=== PATIENT | male | born 1940 | race Caucasian/White ===

== ENCOUNTER → 2016-12-29 11:17 | Outpatient (CLI) | payer MEDICARE, BC ==
[2015-05-15 14:44] VITALS: BMI 29.2
[~2016-12-29 11:17] MED LIST: ATROVENT 0.02%2.5 ML UPD; AVAPRO150 MG PO; AVAPRO300 MG PO; BAYER CHEWABLE81 MG PO; BUMEX 1 MG TAB1 MG PO; CARDURA4 MG PO; CARDURA8 MG PO; CHLORASEPTIC177 ML TOPICAL; COLACE100 MG PO; CORDARONE200 MG PO; COREG25 MG PO; COUMADIN5 MG PO; CRESTOR20 MG PO; FISH OIL 1,0001 CA1 PO; FLOMAX0.4 MG PO; GLIMEPIRIDE1 MG PO; GLIMEPIRIDE4 MG PO; GLUCOPHAGE1000 MG PO; HUMALOG 30100 UNITS/ SC; HYDROCODON-ACE1 EAC6 PO; IMDUR30 MG PO; IMDUR60 MG PO; LANTUS INSULIN10 ML SC; LASIX40 MG PO; LEVAQUIN 5500 MG/100 IV; LEVEMIR100 U/M1 SC; LIPITOR40 MG PO; MAG-OX 400 MG400 MG PO; MERREM 1 GM/NS 11 G1 IV; MULTAQ400 MG PO; NEURONTIN 300300 MG PO; NITROSTAT0.4 MG SL; NORVASC10 MG PO; NORVASC5 MG PO; NOVOLOG100 U/M1 SC; NYSTATIN ORAL SU5 ML PO; PLAVIX75 MG PO; PROSCAR5 MG PO; PROTONIX40 MG PO; PROZAC10 MG PO; SALINE FLUSH10 ML IV; SENOKOT-S TABLE1 TAB PO; XOPENEX 0.0.63 MG/3 UPD
== END | disposition home or self-care (01) ==
LOC: D.RT 12-20 14:30
DX: R06.00 Dyspnea, unspecified (principal)

== ENCOUNTER → 2017-01-09 17:24 | Outpatient (CLI) | payer MEDICARE, BC ==
[2015-05-15 14:44] VITALS: BMI 29.2
== END | disposition home or self-care (01) ==
LOC: D.LABREF 17:24
DX: R22.42 Localized swelling, mass and lump, left lower limb (principal)

== ENCOUNTER 2017-01-09 23:14 | Inpatient (IN) | payer MEDICARE, BC ==
[~2017-01-09] VITALS: Ht 193 cm; Wt 117.0 kg
[2017-01-10 00:21] LABS: HEMATOCRIT 34.5 % (42.0-54.0); HEMOGLOBIN 11.4 g/dL (13.5-17.5); LYMPHOCYTES 11.4 % (15-50); MCH 27.3 pg (26.0-34.0); MCV 82.7 fL (80.0-100.0); MEAN PLATELET VOLUME 9.5 fL (7.4-10.4); RBC 4.17 10x6/uL (4.20-6.10); RDW 14.2 % (11.5-14.5); WBC 9.8 10x3/uL (4.8-10.8)
[2017-01-10 00:23] LABS: PLATELET COUNT 224 10x3/uL (130-400)
[2017-01-10 00:40] LABS: ALBUMIN 3.2 g/dL (3.4-5.0); ANION GAP 15.8 mmol/L (8-16); BILIRUBIN - TOTAL 0.91 mg/dL (0.2-1.3); CALCIUM 9.2 mg/dL (8.5-10.1); CARBON DIOXIDE 22.4 mmol/L (21.0-32.0); POTASSIUM - SERUM 4.2 mmol/L (3.5-5.1); PROTEIN - SERUM 7.1 g/dL (6.4-8.2)
--- NOTE | 2017-01-10 02:50 | NUR ---
RECIEVED PT FROM ER VIA BED, TRANSFERED WITH EASE, ASSESSMENT COMPLETED, NO ACUTE DISTRESS NOTED, DENIES PAIN OR NEEDS AT THIS TIME, ORIENTED TO ROOM AND CALL LIGHT, SR'S UP, WILL MONITOR
[2017-01-10 07:04] VITALS: BP 128/62; BMI 28.5
--- NOTE | 2017-01-10 07:50 | NUR ---
PT AOX4 RESP EVEN AND NONLABORED PT DENIES NEEDS AT THIS TIME IV TO LEFT HAND PATENT AND INTACT SRX2 BED IN LOWEST SETTING CALL LIGHT WITHIN REACH WILL CONTINUE TO MONITOR
[2017-01-10 12:00] VITALS: BP 139/67
--- NOTE | 2017-01-10 12:20 | NUR ---
PT TRANSFERRED VIA BED TO 2113 AT THIS TIME
--- NOTE | 2017-01-10 12:33 | NUR ---
TRANSFERED FROM [place] BY W/C. TELEMETRY SR. IV PATENT. CALL LIGHT IN REACH. WILL CONT. PLAN OF CARE.
[2017-01-10 15:11] VITALS: Ht 193 cm; Wt 117.0 kg
[2017-01-10 16:00] VITALS: BP 126/56; BP 139/67
--- NOTE | 2017-01-10 16:59 | NUR ---
BLADDER SCAN 248CC. WILL CONT TO MONITOR.
--- NOTE | 2017-01-10 19:00 | NUR ---
INITIAL ROUNDS MADE. PT SITTING UP IN BED WITH FAMILY IN ROOM. DENIES NEEDS OR C/O AT THIS TIME. WILL CONT TO MONITOR.
[2017-01-10 20:39] VITALS: BP 137/75
--- NOTE | 2017-01-10 20:58 | NUR ---
FSBS 379, COVERED WITH SS INSULIN AND LEVEMIR ORDERED.
[2017-01-11 00:47] VITALS: BP 119/53; BP 124/79
[2017-01-11 04:56] VITALS: BP 121/63
[2017-01-11 05:46] LABS: BASOPHILS 0 % (0-2); EOSINOPHILS 0 % (0-7); HEMOGLOBIN 10.4 g/dL (13.5-17.5); IMMATURE GRANULOCYTES 0.4 % (0-5); LYMPHOCYTES 5.4 % (15-50); MCHC 33.5 g/dL (31.0-37.0); MCV 83.3 fL (80.0-100.0); MEAN PLATELET VOLUME 10.2 fL (7.4-10.4); MONOCYTES 3.6 % (2-11); NEUTROPHILS 90.6 % (40-80); PLATELET COUNT 208 10x3/uL (130-400); RBC 3.72 10x6/uL (4.20-6.10)
[2017-01-11 06:06] LABS: WBC 13.6 10x3/uL (4.8-10.8)
[2017-01-11 06:12] LABS: ALBUMIN 2.8 g/dL (3.4-5.0); ANION GAP 12.4 mmol/L (8-16); BILIRUBIN - TOTAL 0.6 mg/dL (0.2-1.3); CALCIUM 8.7 mg/dL (8.5-10.1); CARBON DIOXIDE 21.4 mmol/L (21.0-32.0); CREATININE - SERUM 3.5 mg/dL (0.6-1.3); MAGNESIUM - SERUM 2.5 mg/dL (1.8-2.4); POTASSIUM - SERUM 4.8 mmol/L (3.5-5.1); PROTEIN - SERUM 6.5 g/dL (6.4-8.2)
--- NOTE | 2017-01-11 06:25 | NUR ---
LYING IN BED RESTING WELL WITH EYES CLOSED, CALL LIGHT IN REACH. WILL CONT TO MONITOR.
--- NOTE | 2017-01-11 07:40 | NUR ---
TELEMETRY PACED. RESP UL ON 02 4L NC. IV PATENT. CAMPOS CATH INSERTED WITH 16 FR CAHT AND 10CC BULB FOR C/O URINARY RETENTION. 1200CC OP NOTED. WILL CONT. PLAN OF CARE.
[2017-01-11 08:57] VITALS: BP 142/66
[2017-01-11 12:00] VITALS: BP 133/74
[2017-01-11 15:47] LABS: CREATININE - URINE 118.9 mg/dL (30-125); PROTEIN - URINE 52.8 mg/dL (0.0-11.9)
[2017-01-11 15:51] LABS: APPEARANCE HAZY (CLEAR); BILIRUBIN NEGATIVE (NEGATIVE); COLOR DK YELLOW (YELLOW); GLUCOSE 50 mg/dL (NEGATIVE); KETONE NEGATIVE (NEGATIVE); LEUKOCYTE ESTERASE NEGATIVE (NEGATIVE); NITRITE NEGATIVE (NEGATIVE); PROTEIN TRACE mg/dL (NEGATIVE); UROBILINOGEN NORMAL (NORMAL)
[2017-01-11 15:54] LABS: BACTERIA FEW /hpf (NONE SEEN); RED CELLS - URINE >50 /hpf (0-5); WHITE CELLS - URINE 0-5 /hpf (0-5)
--- NOTE | 2017-01-11 15:55 | NUR ---
US DONE AT . URINE SPECIMEN COLLECTED TAKEN TO LA. WILL MONITOR.
[2017-01-11 16:00] VITALS: BP 108/78
--- NOTE | 2017-01-11 19:31 | NUR ---
RESUMED CARE OF PT, LYING IN BED RESPIRATIONS EVEN AND UNLABORED ON 4LPM VIA NC. 71 PACED ON TELEMETRY. LEFT HAND INFUSING DOBUTREX @ 5MCG (15.9ML/HR) AND NS @ KVO. CAMPOS TO GRAVITY. NO NEEDS AT THIS TIME. CALL LIGHT IN REACH, WILL CONTINUE TO MONTIOR. SEE NURSE ASSESSMENT.
[2017-01-11 20:00] VITALS: BP 118/56
[2017-01-12] VITALS: BP 119/61
--- NOTE | 2017-01-12 02:00 | NUR ---
UNABLE TO CATCH BREATH, VERY ANXIOUS. WAS ABLE TO TALK DOWN FOR A BRIEF PERIOD. O2 SATURATION 87% ON 4LPM, INCREASED O2 TO 5LPM VIA NC. UPDRAFT GIVEN FOR SHORTNESS OF BREATH, 90% ON 6LPM VIA NC. WILL APPLY OXYIMIZER FOR NOW. WILL CONTINUE TO MONITOR.
--- NOTE | 2017-01-12 02:24 | NUR ---
DR. GALLAGHER PAGED FOR ANXIETY, SEE NEW ORDERS
[2017-01-12 04:00] VITALS: BP 136/69
[2017-01-12 05:08] LABS: BASOPHILS 0 % (0-2); EOSINOPHILS 0.8 % (0-7); HEMATOCRIT 31.1 % (42.0-54.0); HEMOGLOBIN 10.7 g/dL (13.5-17.5); IMMATURE GRANULOCYTES 0.4 % (0-5); LYMPHOCYTES 7.7 % (15-50); MCH 28.5 pg (26.0-34.0); MCHC 34.4 g/dL (31.0-37.0); MCV 82.7 fL (80.0-100.0); MEAN PLATELET VOLUME 10.1 fL (7.4-10.4); MONOCYTES 8.7 % (2-11); NEUTROPHILS 82.4 % (40-80); PLATELET COUNT 230 10x3/uL (130-400); RBC 3.76 10x6/uL (4.20-6.10); RDW 14.1 % (11.5-14.5); WBC 12.8 10x3/uL (4.8-10.8)
[2017-01-12 05:48] LABS: ALBUMIN 2.7 g/dL (3.4-5.0); ANION GAP 15.9 mmol/L (8-16); BILIRUBIN - TOTAL 0.7 mg/dL (0.2-1.3); CALCIUM 8.4 mg/dL (8.5-10.1); CARBON DIOXIDE 21.2 mmol/L (21.0-32.0); CREATININE - SERUM 3.5 mg/dL (0.6-1.3); POTASSIUM - SERUM 4.1 mmol/L (3.5-5.1); PROTEIN - SERUM 6.3 g/dL (6.4-8.2)
[2017-01-12 06:31] LABS: ERYTHROCYTE SEDIMENTATION RATE 46 mm/hr (0-20)
--- NOTE | 2017-01-12 06:36 | NUR ---
NO CHANGES FROM PREVIOUS ASSESSMENT, CALL LIGHT IN REACH.
--- NOTE | 2017-01-12 07:21 | NUR ---
ASSESSMENT COMPLETED.TELEMERTY SHOWS PACED RHYTHM AT 69. LEFT HAND IV WITH DOBUTREX 15.9 AND NS AT KVO. CAMPOS CATH PATENT TO BEDSIDE GRAVITY BAG. DENIES ANY NEEDS. CALL LIGHT IN REACH AND SR UP TIMES 2. 12 L/M PER OXIMIZER
[2017-01-12 07:53] VITALS: BP 128/71
--- NOTE | 2017-01-12 11:37 | NUR ---
PATIENT REPORTS THAT HE IS NOT "FEELING THE BEST RIGHT NOW". ON 12L PER OXIMIZER, PACED ON HEART MONITOR AT 73. FEMALE MEMBER AT BEDSIDE. DENIES ANY FURTHER NEEDS.
[2017-01-12 11:51] VITALS: BP 141/75
[2017-01-12 12:56] LABS: APPEARANCE SLT CLOUDY (CLEAR); COLOR YELLOW (YELLOW); LEUKOCYTE ESTERASE 1+ (NEGATIVE); NITRITE NEGATIVE (NEGATIVE); SPECIFIC GRAVITY 1.015 (1.005-1.020)
[2017-01-12 12:57] LABS: BILIRUBIN NEGATIVE (NEGATIVE); GLUCOSE NEGATIVE (NEGATIVE); KETONE NEGATIVE (NEGATIVE); PROTEIN TRACE mg/dL (NEGATIVE); UROBILINOGEN NORMAL (NORMAL)
[2017-01-12 13:00] LABS: EPITHELIAL CELLS 0-5 /hpf (0-5); RED CELLS - URINE >50 /hpf (0-5); WHITE CELLS - URINE 0-5 /hpf (0-5)
[2017-01-12 13:01] LABS: AMORPHOUS SEDIMENT <1+ /lpf (NONE SEEN); BACTERIA MANY /hpf (NONE SEEN)
--- NOTE | 2017-01-12 14:33 | NUR ---
22 G TO RIGHT THUMB X 1 STICK.
--- NOTE | 2017-01-12 15:21 | NUR ---
LYING QUIETLY WITH HOB UP.C/O SHORTNESS OF BREATH. BLOOD GASSES DRAWN AND FOUND TO BE NORMAL ATIVAN GIVEN PER PT REQUEST. TELEMERTY SHOWS PACED RHYTHM. WILL MONITOR
[2017-01-12 15:37] VITALS: BP 146/73
--- NOTE | 2017-01-12 17:12 | NUR ---
Patient Name: ANASTASIIA FONTENOT Admission Status: ER Accout number: [id number] Admission Date: 01-10-2017 : 1940 Admission Diagnosis:ACUTE ON CHRONIC SYSTOLIC (CONGESTIVE) HEART FAILURE Attending: MENA Current LOS: 2 Anticipated DC Date: Planned Disposition: Home Primary Insurance: MEDICARE A & B Discharge Planning Comments: CM MET WITH PATIENT TO DISCUSS DISCHARGE PLANNING/NEEDS. HIS EX WHITNEY WAS AT BEDSIDE HOLDING HIS HAND. HE STATED THAT HE LIVES AT HOME WITH HIS EDA ([phone]), AND THIS IS WHERE HE PLANS ON RETURNING. HE STATED THAT HE RECEIVES HIS OXYGEN THROUGH [facility] BUT DOES NOT HAVE A NEBULIZER, BUT THINKS HE NEEDS ONE. HE ALSO HAS A GLUCOMETER FOR TESTING HIS BLOOD SUGARS, BUT WHEN ASKED HOW OFTEN HE TEST, WAS GREETED WITH A BLANK STARE. HE ALSO HAS A ROLLING WALKER AT HOME THAT HE SAID HE DOESN'T NEED TO USE ANYMORE. HE SAID THAT HIS EXWIFE WILL BE HIS TRANSPORTATION HOME AT DISCHARGE. DENIES THE NEED FOR HOME HEALTH AT THIS TIME. VOICED NO OTHER NEEDS EXCEPT FOR THE ABOVE LISTED. CM WILL CONTINUE TO FOLLOW AND ASSIST NEEDED. Supervisor Dried Yeast: Candi Oliva Is the patient Alert and Oriented? Yes * How many steps to enter\exit or inside your home? 0 * PCP DR LEE * Pharmacy [facility] [address] * Preadmission Environment Home with Family * ADLs Independent * Equipment Glucometer Oxygen Rolling Walker * Other Equipment [employer] * List name and contact numbers for known caregivers / representatives who currently or will assist patient after discharge: DORA FONTENOT, SON, EDA FONTENOT, , WHITNEY FONTENOT, EXWIFE, * Community resources currently utilized None * Additional services required to return to the preadmission environment? No * Can the patient safely return to the preadmission environment? Yes * Has this patient been hospitalized within the prior 30 days at any hospital? No
[2017-01-12 19:00] VITALS: BP 137/60
--- NOTE | 2017-01-12 19:36 | NUR ---
RESUMED CARE OF PT, LYING IN BED RESPIRATIONS EVEN AND UNLABORED ON 12 LPM VIA OXYMIZER. FAMILY AT BEDSIDE, PLAN OF CARE DISCUSSED. 70 PACED ON TELEMETRY. CAMPOS TO GRAVITY. RIGHT THUMB INFUSING DOBUTAMINE @ 15.9ML/HR, LASIX @ 10, AND NS @ 10. NO NEEDS VOICED AT THIS TIME, CALL LIGHT IN REACH. WILL CONTINUE TO MONITOR. SEE NURSE ASSESSMENT.
--- NOTE | 2017-01-12 23:52 | NUR ---
IV REMOVED BY PT FROM RIGHT HAND TIP INTACT. 22 GAUGE TO LEFT FOREARM X 2 STICKS. FLUIDS RESTARTED. CALL LIGHT IN REACH. WILL CONTINUE TO MONITOR.
--- NOTE | 2017-01-13 01:01 | NUR ---
CALL LIGHT IN REACH, WILL CONTINUE WITH PLAN OF CARE.
[2017-01-13 04:00] VITALS: BP 137/68
[2017-01-13 05:54] LABS: BASOPHILS 0 % (0-2); EOSINOPHILS 0 % (0-7); HEMATOCRIT 31.5 % (42.0-54.0); HEMOGLOBIN 10.8 g/dL (13.5-17.5); IMMATURE GRANULOCYTES 0.3 % (0-5); LYMPHOCYTES 4.9 % (15-50); MCH 27.9 pg (26.0-34.0); MCHC 34.3 g/dL (31.0-37.0); MCV 81.4 fL (80.0-100.0); MEAN PLATELET VOLUME 10.7 fL (7.4-10.4); MONOCYTES 1.8 % (2-11); PLATELET COUNT 244 10x3/uL (130-400); RBC 3.87 10x6/uL (4.20-6.10); RDW 13.8 % (11.5-14.5); WBC 10.2 10x3/uL (4.8-10.8)
[2017-01-13 06:44] LABS: ALBUMIN 2.8 g/dL (3.4-5.0); ANION GAP 22.2 mmol/L (8-16); BILIRUBIN - TOTAL 0.7 mg/dL (0.2-1.3); CALCIUM 8.4 mg/dL (8.5-10.1); CARBON DIOXIDE 16.3 mmol/L (21.0-32.0); CREATININE - SERUM 3.4 mg/dL (0.6-1.3); MAGNESIUM - SERUM 2.4 mg/dL (1.8-2.4); POTASSIUM - SERUM 4.5 mmol/L (3.5-5.1); PROTEIN - SERUM 6.8 g/dL (6.4-8.2)
--- NOTE | 2017-01-13 07:12 | NUR ---
NO CHANGES FROM PREVIOUS ASSESSMENT, CALL LIGHT IN REACH.
--- NOTE | 2017-01-13 07:25 | NUR ---
ASSESSMENT COMPLETED.TELEMERTY SHOWS PACED RHYTHM AT 71. 02 AT 15 L/M PER OXIMIZER. LEFT FA IV WITH DOBUTAMINE AT 15.9, LASIX AT 10 AND NS AT 10. CAMPOS CATH PATENT TO GRAVITY BAG. SR UP WITH CALL LIGHT IN REACH. FAMILY AT BEDSIDE. WILL MONITOR
[2017-01-13 07:56] VITALS: BP 131/59
--- NOTE | 2017-01-13 10:24 | NUR ---
ON 15L OXIMIZER, WANTING TO KNOW WHEN HIS BIPAP WILL BE HERE. LEFT FA WITH DOBUTREX INFUSING AT 15.9CC, NS INFUSING AT 10CC/HR, AND LASIX DRIP INFUSING AT 10CC/HR. CAMPOS CATH PATENT WILL YELLOW URINE. PACED ON HEART MONITOR.
--- NOTE | 2017-01-13 10:34 | NUR ---
FAMILY AT BEDSIDE. PT DENIES ANY NEEDS. CALL IGHT IN REACH WITH SR UP. WILL MONITOR
[2017-01-13 11:55] VITALS: BP 155/79
--- NOTE | 2017-01-13 12:19 | NUR ---
NA BICARB 100MG IVP GIVEN BY DEACON TEJADA RN PER ORDERS.
--- NOTE | 2017-01-13 13:01 | NUR ---
Nutrition Follow Up: Pt is eating 73% meal avg on a diabetic 2g Na diet. No BM since admit. Labs reviewed - BUN, Cr, Glucose continue elevated; Phos elevated. Meds noted including Lasix, Solu-Medrol. Pt with good po intake at this time. Rec continue current diet. RD will continue to monitor pt progress.
--- NOTE | 2017-01-13 14:45 | NUR ---
BI PAP ON PER RESPATORY. DENIES ANY NEEDS. SR UP WITH CALL LIGHT IN REACH. WILL MONITOR
--- NOTE | 2017-01-13 18:01 | NUR ---
LYING QUIETLY WITH EYES CLOSED. RESP REG AND NON LABORED. TELEMERTY SHOWS PACED RHYTHM. WILL MONITOR
[2017-01-13 19:00] VITALS: BP 132/72
[2017-01-14] VITALS: BP 144/69
[2017-01-14 04:00] VITALS: BP 162/69
[2017-01-14 05:05] LABS: BASOPHILS 0 % (0-2); EOSINOPHILS 0 % (0-7); HEMATOCRIT 33.2 % (42.0-54.0); HEMOGLOBIN 11.1 g/dL (13.5-17.5); IMMATURE GRANULOCYTES 0.4 % (0-5); LYMPHOCYTES 4.5 % (15-50); MCH 27.4 pg (26.0-34.0); MCHC 33.4 g/dL (31.0-37.0); MEAN PLATELET VOLUME 10.3 fL (7.4-10.4); MONOCYTES 4.2 % (2-11); NEUTROPHILS 90.9 % (40-80); PLATELET COUNT 271 10x3/uL (130-400); RBC 4.05 10x6/uL (4.20-6.10); RDW 13.8 % (11.5-14.5)
[2017-01-14 05:17] LABS: WBC 13.1 10x3/uL (4.8-10.8)
[2017-01-14 05:33] LABS: ALBUMIN 2.9 g/dL (3.4-5.0); ANION GAP 17.2 mmol/L (8-16); BILIRUBIN - TOTAL 0.6 mg/dL (0.2-1.3); CALCIUM 8.7 mg/dL (8.5-10.1); CREATININE - SERUM 3.3 mg/dL (0.6-1.3); POTASSIUM - SERUM 4.3 mmol/L (3.5-5.1); PROTEIN - SERUM 6.9 g/dL (6.4-8.2)
[2017-01-14 05:39] LABS: CARBON DIOXIDE 22.1 mmol/L (21.0-32.0)
[2017-01-14 08:00] VITALS: BP 131/66
--- NOTE | 2017-01-14 11:39 | NUR ---
TELEMETRY PACED. RESP UL ON O2 15L OXIMIZER. CAMPOS INTACT. IV RESTARTED TO LEFT FA WITH 22 GAUGE CATH X 1 STICK. LINE IS PATENT. WILL CONT. PLAN OF CARE.
[2017-01-14 16:24] VITALS: BP 149/80
[2017-01-14 19:00] VITALS: BP 152/69
--- NOTE | 2017-01-14 19:45 | NUR ---
PT RESTING IN BED. HAS JUST BEEN UP TO BATHROOM AND HAD SMALL/HARD BM. RESPS SHALLOW AND SHORT OF BREATH FROM BEING UP. WEARING O2 @ 15L/OXIMISER. CAMPOS PATENT TO BEDSIDE DRAIN BAG. IV TO RFA WITH DOBUTREX AT 15.9ML/HR AND LASIX @ 10ML/HR AND NS @ 10 ALL PIGTAILED TO SAME IV SITE. AT BEDSIDE. SEE COMPLETE ASSESSMENT. CPOC.
--- NOTE | 2017-01-14 21:51 | NUR ---
HS MEDS GIVEN. FSBS 276. LEVEMIR AND HUMALOG SLIDING SCALE BOTH ADMINISTERED. CPOC. STAYING AT BEDSIDE.
--- NOTE | 2017-01-15 01:30 | NUR ---
NEW ORDERS NOTED FROM DR DOMINIQUE. HORSE IDENTIFIER NEEDED TO OVERRIDE MEDS. AWAKENED PT TO DISCUSS HIS LISTED ALLERGY OF PENICILLIN AND EXPLAINED THAT DR DOMINIQUE HAD ORDERED HIM A NEW ANTIBIOTIC THAT CONFLICTED WITH LISTED ALLERGY. PT STATES IT MAKES HIS SKIN PEEL ON HIS HANDS. ASKED PT IF HE WANTED TO HOLD ON THE MAXIPIME ABT UNTIL HE COULD TALK TO DR. DOMINIQUE. PT STATES THAT HE WILL TAKE THE MEDICINE SINCE THE REACTION WAS SOMETHING THAT HAPPENED A LONG TIME AGO. STARTED IV MAXIPIME AT THIS TIME AND INSTRUCTED PT TO CALL NURSE IF HE WANTS MED STOPPED AT ANY POINT. PT HAS AT BEDSIDE AND SHE SAID SHE WILL LET NURSE KNOW IF THERE IS AN ISSUE. REVIEWED ALL THE NEW ORDERS PER DR DOMINIQUE WITH PT AND SPOUSE.
--- NOTE | 2017-01-15 03:11 | NUR ---
IV VIBRAMYCIN NOW UP AND INFUSING. PT ASLEEP WITH BIPAP IN PLACE. AT BEDSIDE.
[2017-01-15 04:00] VITALS: BP 142/67
[2017-01-15 04:54] LABS: BASOPHILS 0 % (0-2); EOSINOPHILS 0 % (0-7); HEMATOCRIT 35.3 % (42.0-54.0); HEMOGLOBIN 11.7 g/dL (13.5-17.5); IMMATURE GRANULOCYTES 0.4 % (0-5); LYMPHOCYTES 4.3 % (15-50); MCH 27.4 pg (26.0-34.0); MCHC 33.1 g/dL (31.0-37.0); MCV 82.7 fL (80.0-100.0); MEAN PLATELET VOLUME 10.5 fL (7.4-10.4); MONOCYTES 3.1 % (2-11); NEUTROPHILS 92.2 % (40-80); PLATELET COUNT 310 10x3/uL (130-400); RBC 4.27 10x6/uL (4.20-6.10); RDW 13.9 % (11.5-14.5)
[2017-01-15 04:58] LABS: WBC 9.5 10x3/uL (4.8-10.8)
[2017-01-15 05:08] LABS: ALBUMIN 2.9 g/dL (3.4-5.0); ANION GAP 15.5 mmol/L (8-16); BILIRUBIN - TOTAL 0.6 mg/dL (0.2-1.3); CALCIUM 8.8 mg/dL (8.5-10.1); CARBON DIOXIDE 22.7 mmol/L (21.0-32.0); CREATININE - SERUM 3.2 mg/dL (0.6-1.3); MAGNESIUM - SERUM 2.7 mg/dL (1.8-2.4); PHOSPHOROUS 6.8 mg/dL (2.5-4.9); POTASSIUM - SERUM 4.2 mmol/L (3.5-5.1)
[2017-01-15 08:00] VITALS: BP 145/73
--- NOTE | 2017-01-15 10:43 | NUR ---
RESP UL ON 15L OXIMIZER. TELEMETRY PACED. IV PATENT. CAMPOS INTACT. CALL LIGHT IN REACH. WILL CONT. PLAN OF CARE.
[2017-01-15 12:50] VITALS: BP 121/55
[2017-01-15 20:00] VITALS: BP 139/74
--- NOTE | 2017-01-15 20:11 | NUR ---
PT AND IN ROOM WITH PT C/O VOIDING AROUND HIS CATHETER. PHONE CALL TO DR DE LA O AND NEW ORDERS RECIEVED.
--- NOTE | 2017-01-15 20:58 | NUR ---
BEDTIME MEDS GIVEN + NEW ORDERED DITROPAN WITH PATIENT TEACHING ON ITS PURPOSE. CAMPOS IS PATENT WITH URINE FLOWING IN TUBE. WILL MONITOR.
--- NOTE | 2017-01-15 21:47 | NUR ---
CALLED BACK TO ROOM BY PATIENT. FEELING LIKE HE NEEDS TO VOID. FLUSHED CAMPOS AD THERE WAS SOME INITIAL RESISTANCE THEN URINE WAS BACK TO FREE FLOWING IN CAMPOS. FSBS 195. SCHEDULED LEVEMIR AND SLIDING SCALE HUMALOG GIVEN. EXPLAINED TO PT THAT DITROPAN HAS NOT HAD TIME TO WORK AND HOPEFULLY HE WILL BEGIN TO FEEL SOME RELIEF SOON. WILL BE AT BEDSIDE. IV LASIX DRIP @ 10ML/HR INFUSING TO RIGHT WRIST AREA. CPOC.
--- NOTE | 2017-01-16 01:44 | NUR ---
PT CONTINUES TO HAVE LEAKAGE AROUND CAMPOS SITE AND REQUIRING CARE AND LINEN CHANGES. WHEN SPEAKING WITH DR DE LA O AT BEGINNING OF SHIFT, HE SPECIFIED TO NOT REMOVE AND REPLACE CAMPOS WITH A LARGER SIZE. PT UNDERSTANDS AND WILL CONTINUE TO TRY THE DITROPAN AND SPECIAL CARE HAS BEEN MADE TO PROTECT HIS BED/SHEETS FROM WETNESS UNTIL SEEN BY UROLOGIST IN AM. IV ABT UP AND INFUSING. IV SOLUMEDROL GIVEN. PT NOW ON BIPAP/CLEAN AND DRY AND PLANNING TO SLEEP. AT BEDSIDE.
[2017-01-16 04:00] VITALS: BP 141/75
[2017-01-16 04:38] LABS: BASOPHILS 0 % (0-2); EOSINOPHILS 0 % (0-7); HEMATOCRIT 33.8 % (42.0-54.0); HEMOGLOBIN 11.3 g/dL (13.5-17.5); IMMATURE GRANULOCYTES 0.6 % (0-5); LYMPHOCYTES 4.7 % (15-50); MCH 27.8 pg (26.0-34.0); MCHC 33.4 g/dL (31.0-37.0); MEAN PLATELET VOLUME 10.3 fL (7.4-10.4); MONOCYTES 3.2 % (2-11); NEUTROPHILS 91.5 % (40-80); PLATELET COUNT 335 10x3/uL (130-400); RBC 4.07 10x6/uL (4.20-6.10); RDW 13.9 % (11.5-14.5)
[2017-01-16 04:47] LABS: WBC 12.3 10x3/uL (4.8-10.8)
[2017-01-16 05:00] LABS: ALBUMIN 2.8 g/dL (3.4-5.0); ANION GAP 17.9 mmol/L (8-16); BILIRUBIN - TOTAL 0.7 mg/dL (0.2-1.3); CARBON DIOXIDE 21.3 mmol/L (21.0-32.0); CREATININE - SERUM 3.1 mg/dL (0.6-1.3); POTASSIUM - SERUM 4.2 mmol/L (3.5-5.1); PROTEIN - SERUM 6.9 g/dL (6.4-8.2)
--- NOTE | 2017-01-16 07:30 | NUR ---
RECEIVED PT IN STABLE CONDITION AAOX4 RESP UNLABORED O2 ON PER OXIMIZER @ 15 L/M DENIES ANY NEED OR DISCOMFORT AT THIS TIME NAD NOTED
[2017-01-16 08:57] VITALS: BP 144/66
--- NOTE | 2017-01-16 11:44 | NUR ---
FSBS 258 HUMALOG 10 UNITS GIVEN SQ RT ARM
[2017-01-16 11:58] VITALS: BP 139/63
[2017-01-16 16:13] VITALS: BP 167/82
--- NOTE | 2017-01-16 16:45 | NUR ---
FSBS 284 HUMALOG 10 UNITS GIVEN SQ LT ARM
[2017-01-16 21:25] VITALS: BP 138/73
--- NOTE | 2017-01-16 21:56 | NUR ---
HS MEDS GIVEN. ALSO PROVIDED DITROPA AND ATIVAN TO HELP WITH BLADDER SPASMS AND TO RELAX PATIENT. IVF LASIX DRIP AT 10MLHR INFUSING TO RIGHT WRIST. NS @ KVO FOR ABT. AT BEDSIDE. SEE ASSESSMENTN. CPOC.
[2017-01-17 01:00] VITALS: BP 155/76
[2017-01-17 04:00] VITALS: BP 150/68
[2017-01-17 04:49] LABS: BASOPHILS 0 % (0-2); EOSINOPHILS 0 % (0-7); HEMATOCRIT 33.4 % (42.0-54.0); HEMOGLOBIN 10.9 g/dL (13.5-17.5); IMMATURE GRANULOCYTES 0.7 % (0-5); LYMPHOCYTES 4.5 % (15-50); MCH 27.6 pg (26.0-34.0); MCHC 32.6 g/dL (31.0-37.0); MCV 84.6 fL (80.0-100.0); MEAN PLATELET VOLUME 10.3 fL (7.4-10.4); MONOCYTES 3.5 % (2-11); NEUTROPHILS 91.3 % (40-80); PLATELET COUNT 328 10x3/uL (130-400); RBC 3.95 10x6/uL (4.20-6.10); WBC 11.6 10x3/uL (4.8-10.8)
[2017-01-17 05:09] LABS: ALBUMIN 2.7 g/dL (3.4-5.0); ANION GAP 18.2 mmol/L (8-16); BILIRUBIN - TOTAL 0.6 mg/dL (0.2-1.3); CALCIUM 8.6 mg/dL (8.5-10.1); CARBON DIOXIDE 20.1 mmol/L (21.0-32.0); CREATININE - SERUM 3.1 mg/dL (0.6-1.3); POTASSIUM - SERUM 4.3 mmol/L (3.5-5.1); PROTEIN - SERUM 6.1 g/dL (6.4-8.2)
--- NOTE | 2017-01-17 07:30 | NUR ---
RECEIVED PT IN BED WITH EYES CLOSED RESP UNLABORED OXIMIZER INTACT AND PATENT AT 15 L/M NC NAD NOTED
[2017-01-17 08:00] VITALS: BP 157/77
[2017-01-17 09:15] LABS: SPE - ALBUMIN 2.8 g/dL (2.9-4.4); SPE - ALPHA-1 GLOBULIN 0.3 g/dL (0.0-0.4); SPE - ALPHA-2 GLOBULIN 0.8 g/dL (0.4-1.0); SPE - BETA GLOBULIN 0.8 g/dL (0.7-1.3); SPE - GAMMA GLOBULIN 0.9 g/dL (0.4-1.8); SPE - M-SPIKE Not Observed g/dL (Not Observed); SPE - TOTAL PROTEIN 5.7 g/dL (6.0-8.5)
--- NOTE | 2017-01-17 10:23 | NUR ---
PT PLACED IN TEMPORARY DROPPLET PRECAUTION FOR STAFF AUREUS IN SPUTUM
[2017-01-17 12:00] VITALS: BP 132/61
--- NOTE | 2017-01-17 12:06 | NUR ---
FSBS 200 HUMALOG 4 UNITS GIVEN SQ LT ARM
--- NOTE | 2017-01-17 19:20 | NUR ---
ALERT/AWAKE WATCHING TV, TALKING TO HER . DENIES PAIN OR ANY NEEDS. IV IN L FA WITH NS INFUSING AT 100ML/HR. SCD'S ARE ON. HER VOICED NO QUESTIONS OR CONCERNS. ORIENTED TO CALL LIGHT FOR ANY NEEDS.
--- NOTE | 2017-01-17 19:59 | NUR ---
ALERT/AWAKE DENIES PAIN OR ANY NEEDS. IN DROPLET ISOLATION FOR STAPH/SPUTUM. HAS 02 AT 8L PER OXIMIZER. NO RESP DISTRESS NOTED. RR 18 EVEN U/L. TELEMETRY LEADS IN PLACE. CAMPOS INTACT DRAINING SIA URINE. HAS CALL LIGHT AND BEDSIDE TABLE WITH PERSONAL ITEMS IN REACH.
[2017-01-17 20:47] VITALS: BP 149/70
[2017-01-18 00:39] VITALS: BP 147/71
--- NOTE | 2017-01-18 02:25 | NUR ---
REC UPDRAFT TX. DENIES ANY NEEEDS.
[2017-01-18 05:12] LABS: BASOPHILS 0 % (0-2); EOSINOPHILS 0 % (0-7); HEMATOCRIT 32.2 % (42.0-54.0); HEMOGLOBIN 10.6 g/dL (13.5-17.5); IMMATURE GRANULOCYTES 0.9 % (0-5); LYMPHOCYTES 4.5 % (15-50); MCH 27.8 pg (26.0-34.0); MCHC 32.9 g/dL (31.0-37.0); MCV 84.5 fL (80.0-100.0); MEAN PLATELET VOLUME 10.2 fL (7.4-10.4); MONOCYTES 2.7 % (2-11); NEUTROPHILS 91.9 % (40-80); PLATELET COUNT 324 10x3/uL (130-400); RBC 3.81 10x6/uL (4.20-6.10); RDW 14.1 % (11.5-14.5); WBC 11.1 10x3/uL (4.8-10.8)
[2017-01-18 05:34] LABS: ANION GAP 16.7 mmol/L (8-16); CARBON DIOXIDE 22.5 mmol/L (21.0-32.0); CREATININE - SERUM 2.9 mg/dL (0.6-1.3); POTASSIUM - SERUM 4.2 mmol/L (3.5-5.1)
[2017-01-18 05:49] VITALS: BP 139/67
[2017-01-18 05:54] LABS: CALCIUM 9.1 mg/dL (8.5-10.1)
[2017-01-18 08:00] VITALS: BP 134/69
--- NOTE | 2017-01-18 08:22 | NUR ---
AM ROUNDS - PT IN BED AWAKE. IV TO RIGHT FA, NS AT 10CC/HR AND LASIX AT 5CC/HR. MONITOR SHOWING PACE, HR 69. CAMPOS DRAINING SIA COLOR. O2 AT 10L VIA OXIMIZER. BED AT LOWEST POSITION, CALL GARCIA IN USE/REACH, SIDE RAILS UP X2. WILL CONTINUE TO MONITOR
[2017-01-18 10:20] LABS: ANA REFLEX - DIRECT Negative (Negative)
--- NOTE | 2017-01-18 12:36 | NUR ---
Nutrition follow-up: Diet: ADA low sodium mechanical soft with thin liquids; 800 ml FR Labs reviewed Glucose > 250 mg/dl average Wt: 234# +BM PO intake good at this time. RDN following.
--- NOTE | 2017-01-18 12:45 | NUR ---
PT C/O FULLNESS IN BLADDER. CAMPOS HAD BLOOD IN TUBE AND DID NOT APPEAR TO BE DRAINING. HUE ERICKSON, GENTLY IRRIGATED THE BLADDER WITH NS AND HAD RETURN CLOTS. READ SEAL ON CAMPOS BROKEN. CAMPOS IS DRAINING AT THIS TIME. VERY DARK DRAINAGE. INSTRUCTED PT TO NOTIFY US IF HE STARTS TO FEEL ANY PRESSURE IN BLADDER. WILL CONTINUE TO MONITOR.
[2017-01-18 12:46] VITALS: BP 151/73
--- NOTE | 2017-01-18 13:54 | EC ---
PATIENT:ANASTASIIA FONTENOT DATE OF SERVICE: 01/10/17 SEX: M MEDICAL RECORD: [id number] DATE OF : [birth year] LOCATION:D. D.211 AGE OF PATIENT: 76 ADMISSION DATE: 01/10/17 REFERRING PHYSICIAN: INTERPRETING PHYSICIAN: STEPHANIA TERRELL M.D. ECHOCARDIOGRAM REPORT ECHO CHARGES 4 ECHO COMPLETE CLINICAL DIAGNOSIS: CHF ECHOCARDIOGRAPHIC MEASUREMENTS (adult normal given) AC root (d.<3.7cm) 4.0 LV Septum d (<1.2 cm> 1.7 Valve Excursion 2.1 LV Septum (systole) 1.9 Left Atria (s.<4.0cm> 5.1 LVPW d(<1.2cm) 1.4 RV (d.<2.3cm) 6.1 LVPW (sytole) 2.1 LV diastole(<5.6CM) 7.1 MV E-F(>70mm/sec) LV systole 5.6 LVOT Diameter 2.0 MV exc.(>10mm) 1.9 Est.ejection fraction (50-75%) Pericardial Effusion N DOPPLER: LVIT A 104 E 125 LA RVSP 45 LVOT 113 AOP1/2T 593 Asc. Ao 204 RVOT 106 RA PA 143 AV Gradient Peak 16.70 AV Mean 9.80 AV Area 1.3 MV Gradient Peak 7.93 MV Mean 2.87 MV Area COMMENTS: Joy Loading Machine Operator: Baltazar GARLAND Orientation & Mobility Specialist:Ronnie Ryan TAPE# PACS DATE OF SERVICE: 01/10/2017 REFERRING PHYSICIAN: Marco Ernandez DO. INDICATION: CHF. DESCRIPTION: Left ventricle demonstrates left ventricular hypertrophy. There is moderate LV dysfunction noted. His ejection fraction is in the order of 35% to 40%. Mitral valve is structurally normal. There is moderate regurgitation noted. Left atrium is moderately dilated. The aortic valve leaflets are ECHOCARDIOGRAM REPORT [id number] ANASTASIIA FONTENOT slightly thickened. There is mild insufficiency noted. Right ventricle is moderately to severely dilated. Tricuspid valve is normal. There is moderate regurgitation seen. Right ventricular systolic pressure is elevated at 45 mmHg. There is no pericardial effusion seen. IMPRESSION: 1. Left ventricular hypertrophy with moderate LV dysfunction with ejection fraction of 35% to 40%. 2. Moderate mitral regurgitation. 3. Mild aortic insufficiency. 4. Moderate tricuspid regurgitation with elevated pulmonary pressures. TRANSINT:[id number] Voice Confirmation ID: [id number] DOCUMENT ID: [id number] STEPHANIA TERRELL M.D. at 1354 CC: [id number] DICTATION DATE: 01/10/17 1843 PSYCHOLOGIST EDUCATIONAL: 01/11/17 0000 ADM IN [facility] [address] [id number]
[2017-01-18 15:58] VITALS: BP 147/72
--- NOTE | 2017-01-18 18:19 | NUR ---
PT IN BED. DINNER COMPLETE. NO NEEDS AT THIS TIME. WILL CONTINUE TO MONITOR
[2017-01-18 19:00] VITALS: BP 142/72
--- NOTE | 2017-01-18 19:20 | NUR ---
ALERT/AWAKE ORIENTED. ON 10L OXIMIZER, 02 SATS AT 91%. AUDIBLE CRACKLES AND WHEEZES NOTED. IV IN R FA WITH LASIX INFUSING AT 5ML/HR. TELEMETRY SHOWS 84 PACED. CAMPOS INTACT DRAINING REDDISH URINE. DENIES ANY NEEDS. HAS CALL LIGHT IN REACH.
--- NOTE | 2017-01-18 21:15 | NUR ---
ADMIN SCHED MEDS AND HUMALOG 10 UNITS; LEVEMIR 40 UNITS FOR BS 258.
[2017-01-19] VITALS: BP 153/69
--- NOTE | 2017-01-19 02:10 | NUR ---
RESTING WITH EYES CLOSED. BIPAP MASK IS ON. NO S/S OF DISTRESS OR DISCOMFORT.
[2017-01-19 04:00] VITALS: BP 152/68
[2017-01-19 04:36] LABS: BASOPHILS 0 % (0-2); EOSINOPHILS 0 % (0-7); HEMATOCRIT 32.2 % (42.0-54.0); HEMOGLOBIN 10.5 g/dL (13.5-17.5); IMMATURE GRANULOCYTES 1.2 % (0-5); LYMPHOCYTES 4.7 % (15-50); MCH 27.3 pg (26.0-34.0); MCHC 32.6 g/dL (31.0-37.0); MCV 83.9 fL (80.0-100.0); MONOCYTES 5.5 % (2-11); NEUTROPHILS 88.6 % (40-80); PLATELET COUNT 309 10x3/uL (130-400); RBC 3.84 10x6/uL (4.20-6.10); WBC 11.7 10x3/uL (4.8-10.8)
[2017-01-19 05:07] LABS: ALBUMIN 2.6 g/dL (3.4-5.0); ANION GAP 14.1 mmol/L (8-16); BILIRUBIN - TOTAL 0.64 mg/dL (0.2-1.3); CALCIUM 9.1 mg/dL (8.5-10.1); CARBON DIOXIDE 23.8 mmol/L (21.0-32.0); CREATININE - SERUM 2.5 mg/dL (0.6-1.3); MAGNESIUM - SERUM 2.7 mg/dL (1.8-2.4); POTASSIUM - SERUM 3.9 mmol/L (3.5-5.1); PROTEIN - SERUM 6.2 g/dL (6.4-8.2)
--- NOTE | 2017-01-19 07:49 | NUR ---
AM ROUNDS - PT IS AWAKE IN BED RECIEVING A BREATHING TREATMENT. NON SKID SOCKS ON. BED AT LOWEST POSITION. SIDE RAILS UP X2. CALL GARCIA IN USE/REACH. MONITOR SHOWING SR, HR 69. CAMPOS DRAINING A TEA COLOR. IV TO RIGHT FA, NS AT 10CC/HR AND LASIX AT 5CC/HR. O2 AT 9L VIA OXIMIZER. NO FUTHER NEEDSA T THIS TIEM. WILL CONTINUE TO MONITOR
[2017-01-19 07:54] VITALS: BP 142/76
[2017-01-19 10:17] LABS: ANTI-GLOMERULAR BASMENT MEMBRN 4 units (0-20)
[2017-01-19 12:20] VITALS: BP 140/64
--- NOTE | 2017-01-19 13:41 | NUR ---
PT IN BED AND APPEARS TO BE RESTING. PT RECIEVING IV ANTIBIOTIVS AT THIS TIME. NO FUTHER NEEDS AT THIS TIME. WILL CONTINUE TO MONITOR
[2017-01-19 14:17] LABS: ANCA - ANTIMYELOPEROXIDASE <9.0 U/mL (0.0-9.0); ANCA - ANTIPROTEINASE 3 <3.5 U/mL (0.0-3.5); ANCA - ATYPICAL <1:20 titer (Neg:<1:20); ANCA - CYTOPLASMIC <1:20 titer (Neg:<1:20); ANCA - PERINUCLEAR <1:20 titer (Neg:<1:20)
[2017-01-19 15:50] VITALS: BP 143/67
--- NOTE | 2017-01-19 19:00 | NUR ---
ALERT/AWAKE ORIENTED X 4. RECEIVING UPDRAFT TX. DENIES ANY NEEDS. IV IN F FA WITH LASIX INFUSING AT 5ML/HR AND NS AT 10ML/HR. CAMPOS INTACT/PATENT DRAINING DARK COLORED URINE. HAS CALL LIGHT IN REACH.
[2017-01-19 20:40] VITALS: BP 140/66
--- NOTE | 2017-01-19 21:50 | NUR ---
CHECKED BS WITH GLUCOMETER AT 326. ADMIN HUMALOG 12 UNITS SC AND SCHED LEVEMIR 40 UNITS SC. ADMIN SCHED MEDS PER ORDER. REQUESTED LIGHTS OFF AND DOOR CLOSED TO SLEEP.
[2017-01-20 00:03] VITALS: BP 149/77
--- NOTE | 2017-01-20 04:30 | NUR ---
TOOK A SHOWER. ASSEMBLER CHASSIS CHANGED BEDDING.
--- NOTE | 2017-01-20 05:20 | NUR ---
PULLED LFA IV OUT. RESITED IN RT FA 22G.
[2017-01-20 05:30] LABS: BASOPHILS 0 % (0-2); EOSINOPHILS 0 % (0-7); HEMATOCRIT 31.8 % (42.0-54.0); HEMOGLOBIN 10.5 g/dL (13.5-17.5); IMMATURE GRANULOCYTES 1.5 % (0-5); LYMPHOCYTES 5.3 % (15-50); MCH 27.6 pg (26.0-34.0); MCV 83.7 fL (80.0-100.0); MEAN PLATELET VOLUME 9.8 fL (7.4-10.4); MONOCYTES 5.7 % (2-11); NEUTROPHILS 87.5 % (40-80); PLATELET COUNT 285 10x3/uL (130-400); RDW 13.8 % (11.5-14.5); WBC 11.9 10x3/uL (4.8-10.8)
[2017-01-20 05:51] LABS: ALBUMIN 2.7 g/dL (3.4-5.0); ANION GAP 11.9 mmol/L (8-16); BILIRUBIN - TOTAL 0.8 mg/dL (0.2-1.3); CALCIUM 9.2 mg/dL (8.5-10.1); CARBON DIOXIDE 23.8 mmol/L (21.0-32.0); CREATININE - SERUM 2.8 mg/dL (0.6-1.3); POTASSIUM - SERUM 3.7 mmol/L (3.5-5.1); PROTEIN - SERUM 6.3 g/dL (6.4-8.2)
--- NOTE | 2017-01-20 07:53 | NUR ---
AM ROUNDS - PT IS AWAKE IN BED. IV TO RIGHT FA, NS AT 10CC/HR AND LASIX @ 5CC/HR. RESPITORY TECHS IN ROOM AT THIS TIME. FLOEY DRAINING TEA COLORED. O2 AT 9L VIA OXIMIZER. BED AT LOWEST POSITION, SIDE RAILS UP X2, CALL GARCIA IN USE/REACH. WILL CONTINUE TO MONITOR
[2017-01-20 08:20] VITALS: BP 142/71
--- NOTE | 2017-01-20 09:58 | NUR ---
MORNING MEDICATION GIVEN. PT TOLERATED WELL. NO FUTHER NEEDS AT THIS TIME. WILL CONTINUE TO MONITOR
[2017-01-20 12:31] VITALS: BP 138/71
--- NOTE | 2017-01-20 13:57 | NUR ---
PULMONARY ENTERED AN ORDER TO D/C CAMPOS. RENAL WROTE AN ORDER TO KEEP CAMPOS 2 WEEKS AFTER D/C. CAMOPS NOT REMOVED.
[2017-01-20 16:40] VITALS: BP 142/73
--- NOTE | 2017-01-20 19:25 | NUR ---
PT REST IN BED, EYE OPEN, DENIES NEEDS.
[2017-01-20 20:00] VITALS: BP 114/52
[2017-01-21] VITALS: BP 149/75
--- NOTE | 2017-01-21 03:35 | NUR ---
PT REST QUIETLY IN BED WITH EYE CLOSE, CALL LIGHT WITHIN REACH.
[2017-01-21 04:00] VITALS: BP 148/75
[2017-01-21 06:27] LABS: BASOPHILS 0.1 % (0-2); EOSINOPHILS 0.1 % (0-7); HEMATOCRIT 32.4 % (42.0-54.0); HEMOGLOBIN 10.8 g/dL (13.5-17.5); IMMATURE GRANULOCYTES 1.7 % (0-5); LYMPHOCYTES 4.5 % (15-50); MCH 27.8 pg (26.0-34.0); MCHC 33.3 g/dL (31.0-37.0); MCV 83.5 fL (80.0-100.0); MEAN PLATELET VOLUME 10.1 fL (7.4-10.4); NEUTROPHILS 88.6 % (40-80); PLATELET COUNT 277 10x3/uL (130-400); RBC 3.88 10x6/uL (4.20-6.10); RDW 13.7 % (11.5-14.5); WBC 14.8 10x3/uL (4.8-10.8)
[2017-01-21 06:41] LABS: ALBUMIN 2.7 g/dL (3.4-5.0); ANION GAP 12.7 mmol/L (8-16); BILIRUBIN - TOTAL 0.73 mg/dL (0.2-1.3); CALCIUM 9.2 mg/dL (8.5-10.1); CARBON DIOXIDE 23.5 mmol/L (21.0-32.0); CREATININE - SERUM 2.6 mg/dL (0.6-1.3); POTASSIUM - SERUM 4.2 mmol/L (3.5-5.1); PROTEIN - SERUM 6.2 g/dL (6.4-8.2)
--- NOTE | 2017-01-21 07:23 | NUR ---
AM ROUNDS- PT IN BED, REQUESTED A CUP OF ICE CHIPS. WILL PROVIDE PT WITH ICE CHIPS. PROVIDED TEACHING ON FLUID RESTRICTION. PT VERBALIZED UNDERSTANDING. BED LOW AND LOCKED. BED RAILS X2. CALL LIGHT IN REACH, NAD NOTED, WILL CONTINUE TO MONITOR.
[2017-01-21 08:00] VITALS: BP 149/76
--- NOTE | 2017-01-21 08:32 | NUR ---
ADMINISTERED MORNING MEDICATIONS. PT IN BED, DENIES ANY NEEDS AT THIS TIME. DR. LEE AT BEDSIDE. NAD NOTED, CALL LIGHT IN REACH, WILL CONTINUE TO MONITOR.
--- NOTE | 2017-01-21 11:31 | NUR ---
BLOOD SUGAR OF 354. 10UNITS OF HUMALOG GIVEN PER S/S. PT UP TO CHAIR, DENIES ANY NEEDS AT THIS TIME. CALL LIGHT IN REACH, FAMILY AT BEDSIDE. NAD NOTED, WILL CONTINUE TO MONITOR.
[2017-01-21 12:00] VITALS: BP 136/67
[2017-01-21 15:43] VITALS: BP 146/68
--- NOTE | 2017-01-21 17:59 | NUR ---
EARLIER PT GOT OUT OF CHAIR AND WHEN HE STOOD UP URINE STARTED LEAKING OUT AROUND CATHETER. PT REQUESTED CAMPOS TO BE IRRIGATED. CAMPOS CATHETER IRRIGATED AT THIS TIME WITH NS. PT TOLERATED PROCEDURE WELL. PT DENIES ANY NEEDS AT THIS TIME. PT UP TO CHAIR, CALL LIGHT IN REACH, NAD NOTED, WILL CONTINUE TO MONITOR.
[2017-01-21 20:00] VITALS: BP 129/65
--- NOTE | 2017-01-21 22:06 | NUR ---
INIITAL ROUNDS COMPETED AT 1915 HRS. PT SITTING UP IN CAHSI. DENIES ANY DISCOMFORT. INFORMED ONLY HAS 200CC FLUIS LEFT UNTIL 0700. PT STATED UNDERSTANDING. ASSESSMETN COMPLETED AT 2010 HRS. VSS. PACED RHYTHM PER CM HR 69. 02 SAT 93% ON 7L OXIMIZER. IV TO R HAND SL. LUNGS DIMINISHED IN BASES BILAT. INCISION WITH SUTURES NOTED TO INNER L LOWER LEG. 2-3+ PITTING EDEMA NOTED TO FEET. CAMPOS DRAINING YELLOW URINE. PM FSBS 347. 12 UNITS HUMALAG GIVNE SUB-Q TO UPPER R ARM PER S/S. SCHEDULED LEVEMIR GIVEN SUB-Q TO UPPER R ARM. ASSSITED PT BACK TO BED. PT CURRENTLY WATCHING TV; DENIES ANY DISCOMFORT. SR UP X2, CALL LIGHT WITHIN REACH.
--- NOTE | 2017-01-22 01:35 | NUR ---
PT RESTING WITH EYES CLOSED. RESP EVEN AND REGULAR. SR UP X2, CALL LIGHT WITHIN REACH.
[2017-01-22 04:00] VITALS: BP 147/69
--- NOTE | 2017-01-22 04:50 | NUR ---
PT AWKE; UPSET THAT HE CAN NOT HAVE ANY MORE WATER OR ICE CHIPS. INFORMED PT THAT HE IS ALREADY OVER HIS FR BY 70CC. PT THEN STATED THAT IT WAS BULL. INFORMED PT TO DISCUSS WITH MD IN AM. WILL CONTINUE TO MONITOR.
[2017-01-22 05:09] LABS: BASOPHILS 0.1 % (0-2); EOSINOPHILS 0 % (0-7); HEMOGLOBIN 10.5 g/dL (13.5-17.5); IMMATURE GRANULOCYTES 1.8 % (0-5); LYMPHOCYTES 4.2 % (15-50); MCH 27.6 pg (26.0-34.0); MCHC 32.8 g/dL (31.0-37.0); MCV 84.2 fL (80.0-100.0); MEAN PLATELET VOLUME 10.8 fL (7.4-10.4); NEUTROPHILS 88.9 % (40-80); PLATELET COUNT 288 10x3/uL (130-400); RDW 13.7 % (11.5-14.5); WBC 15.9 10x3/uL (4.8-10.8)
[2017-01-22 05:34] LABS: ALBUMIN 2.6 g/dL (3.4-5.0); ANION GAP 12.4 mmol/L (8-16); BILIRUBIN - TOTAL 0.69 mg/dL (0.2-1.3); CARBON DIOXIDE 24.8 mmol/L (21.0-32.0); CREATININE - SERUM 2.6 mg/dL (0.6-1.3); MAGNESIUM - SERUM 2.4 mg/dL (1.8-2.4); PHOSPHOROUS 3.8 mg/dL (2.5-4.9); POTASSIUM - SERUM 4.2 mmol/L (3.5-5.1); PROTEIN - SERUM 5.9 g/dL (6.4-8.2)
--- NOTE | 2017-01-22 06:34 | NUR ---
VSS THROUGHOUT NIGHT. PT DENIED ANY DISCOMFORT. NEEDS MET; WILL CONTINUE TO MONITOR.
[2017-01-22 08:09] VITALS: BP 156/80
[2017-01-22 12:00] VITALS: BP 148/77
--- NOTE | 2017-01-22 12:55 | NUR ---
Rehab Prescreening Consult recieved and the chart has been reviewed. He is a good IRF candidate and meets criteria. I would like to see his 02 continueing to titrate down some. PT is also walking him 500 feet but turning his 02 up to 10 liters without an order. This does not give a true picture of his functional capabilities. Rehab will address this with the physical therapist in the AM to try to gain a true assessment of his 02 needs and distance he can ambulate. Yue Claudio RN Clinical Liaison, Rehab
--- NOTE | 2017-01-22 14:10 | NUR ---
ALERT AND ORIENTED X4. SITTING UP IN CHAIR. CAMPOS DRAINING BY GRAVITY. CAMPOS FREE FROM TOUCHING FLOOR. FAMILY AT BEDSIDE. REHAP PRESCREEN ORDERED. AMBULATES IN [place] ASSISTED BY WALKER AND PHYSICAL THERAPY STAND BY ASSIST. SINUS WITH PACED BEATS 67bpm ON TELEMETRY. DENIES ANY NEEDS. CHAIR LOCKED. CALL LIGHT IN REACH.
--- NOTE | 2017-01-22 15:26 | NUR ---
ALERT AND ORIENTED X4. CAMPOS BAG LEAKING AT BOTTUM OF BAG. NEW BAG ATTACHED TO CAMPOS CATHETER. FREE FROM LEAKS. DENIES ANY NEEDS. CONTINUE PLAN OF CARE AND SAFETY PRECAUTIONS.
--- NOTE | 2017-01-22 18:12 | NUR ---
ALERT AND ORIENTED X4. SITTING UP IN CHAIR WATCHING TV. DENIES ANY NEEDS. SINUS WITH PACED BEATS 71bpm ON TELEMETRY. CAMPOS DRAINING BY GRAVITY. FREE FROM KINKS AND LEAKS. CONTINUE PLAN OF CARE AND SAFETY PRECAUTIONS.
[2017-01-22 20:00] VITALS: BP 151/71
--- NOTE | 2017-01-22 22:15 | NUR ---
INITIAL ROUNDS COMPLETED AT 1914 HRS. PT DENIED ANY DISCOMFORT. PT ASSISTED FROM CAHIR TO BED AT THAT TIME. PT VERY SOB WITH ACTIVITY. ASSESSMETN COMPELTED AT 1954 HRS. VSS. SR PER CM HR 80. IV TO R HAND SL. LUNGS WITH SCATTERED CRACKLES IN BASES. 2+ PITTING EDEMA NOTED TO FEET. CAMPOS DRAINING YELLOW URINE. BRUISES NOTED TO BILAT ARMS. PM FSBS 266. 16 UNITS HUMALOG GIVEN SUB-Q TO UPPER R ARM PER S/S. PM MEDS GINVE. PM SNACK SERVED. DISCUSED WITH PT HOW TO RATION 320CC OF FLUID HE MAY HAVE THIS SHIFT. PT STATED HE WANTS ICE CHIPS. O2 7L OXIMIZER. PT CURRENTLY RESTING WITH EYES CLOSED. RESP EVEN AND REGULAR. SR UP X2, CALL LIGHT WITHIN REACH.
--- NOTE | 2017-01-23 00:19 | NUR ---
PT RESTING WITH EYES CLOSED. RESP EVEN AND REGULAR. SR UP X2, CALL LIGHT WITHIN REACH.
--- NOTE | 2017-01-23 02:01 | NUR ---
PT RESTING WITH EYES CLOSED. RESP EVEN AND REGULAR. SR UP X2, CALL LIGHT WITHIN REACH.
[2017-01-23 04:00] VITALS: BP 138/84
[2017-01-23 04:32] LABS: BASOPHILS 0.1 % (0-2); EOSINOPHILS 0 % (0-7); HEMATOCRIT 31.9 % (42.0-54.0); HEMOGLOBIN 10.5 g/dL (13.5-17.5); IMMATURE GRANULOCYTES 1.7 % (0-5); LYMPHOCYTES 4.8 % (15-50); MCHC 32.9 g/dL (31.0-37.0); MCV 85.1 fL (80.0-100.0); MEAN PLATELET VOLUME 10.7 fL (7.4-10.4); MONOCYTES 5.8 % (2-11); NEUTROPHILS 87.6 % (40-80); PLATELET COUNT 275 10x3/uL (130-400); RBC 3.75 10x6/uL (4.20-6.10); RDW 13.9 % (11.5-14.5); WBC 17.6 10x3/uL (4.8-10.8)
[2017-01-23 04:48] LABS: ANION GAP 16.4 mmol/L (8-16); CALCIUM 9.1 mg/dL (8.5-10.1); CREATININE - SERUM 2.4 mg/dL (0.6-1.3); MAGNESIUM - SERUM 2.3 mg/dL (1.8-2.4); POTASSIUM - SERUM 4.4 mmol/L (3.5-5.1)
--- NOTE | 2017-01-23 04:58 | NUR ---
PT RESTING WITH EYES CLOSED. RESP EVEN AND REGULAR. SR UP X2, CALL LIGHT WITHIN REACH.
--- NOTE | 2017-01-23 06:31 | NUR ---
VSS THROUGHOUT NIGHT. PT DENIED ANY DISCOMFORT. NEEDS MET; WILL CONTINUE TO MONITOR.
[2017-01-23 09:13] VITALS: BP 144/75
[2017-01-23 11:59] VITALS: BP 144/70
[2017-01-23] MEDS ORDERED: BROVANA15 MCG/2 M INH (12:56)
[2017-01-23] MEDS ORDERED: IPRAT-ALBUT 0.5-3 ML INH (12:56)
[2017-01-23] MEDS ORDERED: LOVENOX30 MG/0.3 SC (12:57)
[2017-01-23] MEDS ORDERED: ASPIRIN81 MG PO (12:57)
[2017-01-23] MEDS ORDERED: NORVASC10 MG PO (12:57)
[2017-01-23] MEDS ORDERED: MUCOMYST 20200 MG/M2 UPD (12:58)
[2017-01-23] MEDS ORDERED: RENVELA0.8 GM PO (12:58)
[2017-01-23] MEDS ORDERED: LASIX40 MG PO (12:58)
[2017-01-23] MEDS ORDERED: PULMICORT0.5 MG/21 UPD (12:59)
[2017-01-23] MEDS ORDERED: FLORAJEN3 CAPS460 MG PO (12:59)
[2017-01-23] MEDS ORDERED: BENZONATATE200 MG PO (12:59)
[2017-01-23] MEDS ORDERED: HUMALOG 30100 UNITS/ SC (13:00)
[2017-01-23] MEDS ORDERED: LEVEMIR100 U/M1 SC (13:00)
[2017-01-23] MEDS ORDERED: PREDNISONE10 MG PO (13:01)
--- NOTE | 2017-01-23 13:32 | NUR ---
Patient Name: ANASTASIIA FONTENOT Encounter No: [id number] : 1940 Primary Insurance: MEDICARE A & B Anticipated DC Date: 01-23-2017 Planned Disposition: Inpatient Rehab External Planned Provider: [facility] DCP follow-up note: CM SPOKE TO EDA OF INPATIENT REHAB, THEY PLAN TO ACCEPT PT TODAY FOR REHAB IF STABLE FOR DISCHARGE. CM NOTIFIED [employer] SUPERVISOR NURSE. PT NOTIFIED, IN AGREEMENT WITH DISCHARGE TO INPATIENT REHAB. IMPORTANT MESSAGE FROM [employer] PROVIDED AND DISCUSSED. [facility] TO CONTACT MED 2 NURSE WITH ROOM NUMBER WHEN READY TO ACCEPT PT AND NURSE REPORT. Pb Spencer, CASE MANAGEMENT
--- NOTE | 2017-01-23 15:49 | NUR ---
ALERT AND ORIENTED X4. SITTING UP IN BED. DC RT HAND IV TIP INTACT. DISCHARGE PAPERS TO REHAB RM# [id number]. REPORT CALLED TO [facility]. ESCORT TO ROOM VIA WHEELCHAIR. REMAINS FREE FROM INJURY.
== END 2017-01-23 16:23 | DRG 291 ==
LOC: D.ER 23:14 → D.M2 01-10 01:25 → D.MS 01-10 01:25 → D.M2 01-10 12:17
PROVIDERS: Emergency Medicine; Family Medicine; Internal Medicine; Internal Medicine Pulmonary Disease; ADMIT Family Medicine
PROC: 0T9B70Z Drainage of Bladder with Drainage Device, Via Natural or Artificial Opening (ICD-10-PCS; principal; 2017-01-11)
DX: I13.0 Hypertensive heart and chronic kidney disease with heart failure and stage 1 through stage 4 chronic kidney disease, or unspecified chronic kidney disease (principal); I50.23 Acute on chronic systolic (congestive) heart failure; J15.211 Pneumonia due to Methicillin susceptible Staphylococcus aureus; J96.01 Acute respiratory failure with hypoxia; N18.4 Chronic kidney disease, stage 4 (severe); J98.11 Atelectasis; E87.2 Acidosis; E87.1 Hypo-osmolality and hyponatremia; N13.8 Other obstructive and reflux uropathy; E11.22 Type 2 diabetes mellitus with diabetic chronic kidney disease; I42.0 Dilated cardiomyopathy; I25.5 Ischemic cardiomyopathy; I48.91 Unspecified atrial fibrillation; K21.9 Gastro-esophageal reflux disease without esophagitis; R13.10 Dysphagia, unspecified; D64.9 Anemia, unspecified; I27.2 Other secondary pulmonary hypertension; E83.39 Other disorders of phosphorus metabolism; N40.1 Benign prostatic hyperplasia with lower urinary tract symptoms; I25.10 Atherosclerotic heart disease of native coronary artery without angina pectoris; Z95.1 Presence of aortocoronary bypass graft; Z95.0 Presence of cardiac pacemaker; I08.1 Rheumatic disorders of both mitral and tricuspid valves

== ENCOUNTER 2017-01-23 15:20 | Inpatient (IN) | payer MEDICARE, BC ==
[~2017-01-23] VITALS: Ht 193 cm; Wt 115.3 kg
[~2017-01-23 15:20] MED LIST changes: +ASPIRIN81 MG PO; +BENZONATATE200 MG PO; +BROVANA15 MCG/2 M INH; +FLORAJEN3 CAPS460 MG PO; +IPRAT-ALBUT 0.5-3 ML INH; +LOVENOX30 MG/0.3 SC; +MUCOMYST 20200 MG/M2 UPD; +PREDNISONE10 MG PO; +PULMICORT0.5 MG/21 UPD; +RENVELA0.8 GM PO
[2017-01-23 17:26] VITALS: BP 132/76; BMI 30.7
--- NOTE | 2017-01-23 20:00 | NUR ---
PT IN BED WITH HOB UP FOR COMFORT. WATCHING TV. ALERT & ORIENTED. OXIMIZER @ 5L. FSBS ACHS. CAMPOS CATH. MEDS WHOLE IN APLLESAUCE. PACEMAKER. 800CC FLUID RESTRICTION. BED IN LOWEST POSITION AND CALL LIGHT WITHIN REACH.
[2017-01-23 20:07] VITALS: BP 132/76
--- NOTE | 2017-01-24 | NUR ---
PT IN BED WITH HOB UP FOR COMFORT. EYES CLOSED. RESPIRATIONS EVEN. BED IN LOWEST POSITION AND CALL LIGHT WITHIN REACH.
--- NOTE | 2017-01-24 01:00 | NUR ---
PATIENT AWAKE DUE TO ROOMMATE BEING CLEANSED AND CHANGED. DENIES NEEDS.
--- NOTE | 2017-01-24 03:51 | NUR ---
PT IN BED WITH HOB UP FOR COMFORT. EYES CLOSED. CHEST RISING AND FALLING. BED IN LOWEST POSITION AND CALL LIGHT WITHIN REACH.
[2017-01-24 06:54] LABS: BASOPHILS 0.1 % (0-2); EOSINOPHILS 0.4 % (0-7); HEMATOCRIT 31.9 % (42.0-54.0); HEMOGLOBIN 10.5 g/dL (13.5-17.5); IMMATURE GRANULOCYTES 1.7 % (0-5); LYMPHOCYTES 7.8 % (15-50); MCH 27.9 pg (26.0-34.0); MCHC 32.9 g/dL (31.0-37.0); MCV 84.8 fL (80.0-100.0); MEAN PLATELET VOLUME 10.7 fL (7.4-10.4); MONOCYTES 7.4 % (2-11); NEUTROPHILS 82.6 % (40-80); PLATELET COUNT 247 10x3/uL (130-400); RBC 3.76 10x6/uL (4.20-6.10); RDW 13.8 % (11.5-14.5)
[2017-01-24 07:05] LABS: CALCIUM 8.7 mg/dL (8.5-10.1); CARBON DIOXIDE 24.2 mmol/L (21.0-32.0); CREATININE - SERUM 2.2 mg/dL (0.6-1.3)
--- NOTE | 2017-01-24 07:16 | NUR ---
RESTING QUIETLY IN BED WITH EYES CLOSED. CALL LIGHT IN REACH
[2017-01-24 07:18] LABS: ANION GAP 12.5 mmol/L (8-16); POTASSIUM - SERUM 3.7 mmol/L (3.5-5.1)
[2017-01-24 08:50] VITALS: BP 155/80
--- NOTE | 2017-01-24 12:40 | NUR ---
SITTING IN W/C IN ROOM EATING LUNCH. IS MINDFUL OF FLUID RESTRICTION. HE TIRES EASILY. STILL WEARING OXYGEN ORDERED.
--- NOTE | 2017-01-24 15:11 | NUR ---
SITTING UP IN CHAIR IN ROOM WATCHING TV. OXYGEN IN USE. HAS 4+ EDEMA TO BLE.
[2017-01-24 19:15] VITALS: BP 123/63
--- NOTE | 2017-01-24 19:15 | NUR ---
PT UP IN W/C. RECEIVING BREATHING TREATMENT. FAMILY AT BEDSIDE. ALERT & ORIENTED. OXIMIZER @ 5L. FSBS ACHS. CAMPOS CATH. MEDS WHOLE. PACEMAKER. 800CC FLUID RESTRICTION. BED IN LOWEST POSITION AND CALL LIGHT WITHIN REACH.
--- NOTE | 2017-01-24 23:15 | NUR ---
PT IN BED WITH HOB UP FOR COMFORT. EYES CLOSED. CHEST RISING AND FALLING. BED IN LOWEST POSITION AND CALL LIGHT WITHIN REACH.
--- NOTE | 2017-01-25 03:50 | NUR ---
LYING IN BED, EYES CLOSED. NO DISTRESS EVIDENT.
[2017-01-25 06:51] LABS: BASOPHILS 0 % (0-2); EOSINOPHILS 0.5 % (0-7); HEMATOCRIT 31.4 % (42.0-54.0); HEMOGLOBIN 10.3 g/dL (13.5-17.5); IMMATURE GRANULOCYTES 1.4 % (0-5); MCH 27.8 pg (26.0-34.0); MCHC 32.8 g/dL (31.0-37.0); MCV 84.9 fL (80.0-100.0); MEAN PLATELET VOLUME 11.3 fL (7.4-10.4); MONOCYTES 6.7 % (2-11); NEUTROPHILS 82.4 % (40-80); PLATELET COUNT 231 10x3/uL (130-400); RDW 13.9 % (11.5-14.5); WBC 13.3 10x3/uL (4.8-10.8)
[2017-01-25 07:01] LABS: ANION GAP 12.9 mmol/L (8-16); CARBON DIOXIDE 22.7 mmol/L (21.0-32.0); CREATININE - SERUM 2.1 mg/dL (0.6-1.3); POTASSIUM - SERUM 3.6 mmol/L (3.5-5.1)
--- NOTE | 2017-01-25 07:11 | NUR ---
INTRODUCED SELF TO PT, PT STATES NO NEW NEEDS AT THIS TIME, WILL CONTINUE TO MONITOR, CALL LIGHT WITHIN REACH.
[2017-01-25 08:09] VITALS: BP 131/59
--- NOTE | 2017-01-25 09:05 | NUR ---
MORNING MEDICATION GIVEN, PT TOLERATED WELL, SHAMPOOED PT HAIR, ASSISTED PT TO BATHROOM AND BACK TO WHEELCHAIR WITH STANDBY ASSISTANCE, PT STATES NO NEEDS AT THIS TIME, WILL CONTINUE TO MONITOR, CALL LIGHT WITHIN REACH.
[2017-01-25 10:37] VITALS: Ht 193 cm; Wt 115.3 kg
--- NOTE | 2017-01-25 13:31 | NUR ---
PT SITTING UP IN CHAIR WATCHING TV, PT STATES NO NEEDS AT THIS TIME, WILL CONTINUE TO MONITOR, CALL LIGHT WITHIN REACH.
--- NOTE | 2017-01-25 15:35 | NUR ---
SITTING UP IN WC.FAMILY VISITING.CL IN REACH.
--- NOTE | 2017-01-25 16:52 | NUR ---
PT FSBS 194, PT STATES WANTS TO DECLINE INSULIN DUE TO LOW GLUCOSE LEVELS EARLIER TODAY. WILL CONTINUE TO MONITOR, CALL LIGHT WITHIN REACH.
--- NOTE | 2017-01-25 17:55 | NUR ---
PT SITTING UP IN CHAIR EATING DINNER, PT STATES NO NEEDS AT THIS TIME, WILL CONTINUE TO MONITOR, CALL LIGHT WITHIN REACH.
--- NOTE | 2017-01-25 19:30 | NUR ---
PT REST IN BED AND WATCH TV.
[2017-01-25 23:06] VITALS: BP 136/69
--- NOTE | 2017-01-26 02:00 | NUR ---
PT RESTING, EYES CLOSED. RR ARE EVEN AND UNLABORED. BED LOW. CL IN REACH.
--- NOTE | 2017-01-26 05:40 | NUR ---
PT FSBS IS 46, GIVE PT A CUP OF APPLE JUICE AND 2 PACK OF GRAHAMS CRACKER.
--- NOTE | 2017-01-26 06:10 | NUR ---
RECHECK PT BLOOD SUGAR, 106.
--- NOTE | 2017-01-26 07:30 | NUR ---
PATIENT SITTING UP IN BED TO EAT BREAKFAST. OXIMYZER AT 5L. CAMPOS CATH IN PLACE, DRAINING DARK YELLOW URINE. CALL LIGHT WITHIN REACH. VOICES NO NEEDS AT THIS TIME
[2017-01-26 08:38] VITALS: BP 146/69
--- NOTE | 2017-01-26 09:47 | NUR ---
DR. Gisselle MARIA INTO SEE PATIENT. NEW ORDERS RECEIVED. PATIENT EDUCATED IN REGARDS TO CHANGED IN MEDICATIONS.
--- NOTE | 2017-01-26 11:38 | NUR ---
AFTERNOON MEDICATION GIVEN, PT TOLERATED WELL, PT IN PHYSICAL THERAPY. WILL CONTINUE TO MONITOR.
--- NOTE | 2017-01-26 13:10 | NUR ---
PT SITTING UP IN CHAIR WATCHING TV, PT STATES NO NEW NEEDS AT THIS TIME, WILL CONTINUE TO MONITOR, CALL LIGHT WITHIN REACH.
--- NOTE | 2017-01-26 13:39 | NUR ---
Nutrition Follow Up: Pt reported that his appetite is great. Caregiver and family member stated that there have been a few "mix ups" with meals and provided examples. RD encouraged them to make staff aware if this happens again. RD will notify agricultural and forestry supervisor. Pt is eating 92% meal avg on a NOVA mech soft diet with thin liquids. No new wt to assess. +BM 01/22/17. Labs reviewed. Meds noted including MV, Lasix. Rec continue current diet. RD following.
--- NOTE | 2017-01-26 13:42 | NUR ---
SITTING UP IN WC IN THERAPY.
--- NOTE | 2017-01-26 18:29 | NUR ---
PT RESTING IN BED WATCHING TV, PT STATES NO NEW NEEDS AT THIS TIME, WILL CONTINUE TO MONITOR, CALL LIGHT WITHIN REACH.
--- NOTE | 2017-01-26 19:30 | NUR ---
SIT UP IN BED AND WATCH TV.
[2017-01-26 20:00] VITALS: BP 131/61
--- NOTE | 2017-01-27 01:47 | NUR ---
RESTING QUIETLY IN BED, EYE CLOSE, BED LOW, CALL LIGHT WITHIN REACH.
--- NOTE | 2017-01-27 05:10 | NUR ---
PT BLOOD SUGAR IS 57. REPORT TO CHARGE NURSE, AND GIVE ENSURE.
--- NOTE | 2017-01-27 05:30 | NUR ---
PT STATES HE DOESN'T FEEL GOOD, PT STATES HE CAN FEEL THAT HIS BLOOD SUGAR IS LOW. PROVIDED CARBS/PRO TO INCREASE BLOOD GLUCOSE. PT ALERT AND ORIENTED.
--- NOTE | 2017-01-27 06:32 | NUR ---
RECHECK BLOOD SUGAR IS 121
[2017-01-27 06:39] LABS: BASOPHILS 0.1 % (0-2); EOSINOPHILS 1.1 % (0-7); HEMATOCRIT 30.8 % (42.0-54.0); HEMOGLOBIN 9.8 g/dL (13.5-17.5); IMMATURE GRANULOCYTES 0.9 % (0-5); LYMPHOCYTES 11.5 % (15-50); MCH 27.3 pg (26.0-34.0); MCHC 31.8 g/dL (31.0-37.0); MCV 85.8 fL (80.0-100.0); MEAN PLATELET VOLUME 11.5 fL (7.4-10.4); MONOCYTES 6.6 % (2-11); NEUTROPHILS 79.8 % (40-80); RBC 3.59 10x6/uL (4.20-6.10); WBC 10.9 10x3/uL (4.8-10.8)
[2017-01-27 06:51] LABS: PLATELET COUNT 182 10x3/uL (130-400)
[2017-01-27 07:03] LABS: ANION GAP 12.8 mmol/L (8-16); CALCIUM 8.8 mg/dL (8.5-10.1); CREATININE - SERUM 2.1 mg/dL (0.6-1.3); POTASSIUM - SERUM 3.8 mmol/L (3.5-5.1)
--- NOTE | 2017-01-27 08:00 | NUR ---
SHIFT ASSMT COMPLETED.ON FLD RESTRICTION.CL IN REACH.BREAKFAST GIVEN.DENIES NEEDS.
[2017-01-27 08:54] VITALS: BP 145/74
--- NOTE | 2017-01-27 12:00 | NUR ---
SITTING UP IN WC EATING LUNCH.
--- NOTE | 2017-01-27 13:03 | NUR ---
Nutrition Follow Up: Pt is eating 100% meal avg on a renal ADA mech soft diet. Wt stable. + 01/27/17. Labs reviewed. Meds noted including Levemir, Prednisone, Lasix, Humalog. Rec continue current diet. RD following.
--- NOTE | 2017-01-27 16:00 | NUR ---
REMOVED SUTURES;SITE STERI STRIPPED.[place] BROWN.
[2017-01-27 19:06] VITALS: BP 126/58
[2017-01-27 20:30] VITALS: BP 126/58
--- NOTE | 2017-01-28 04:25 | NUR ---
PT RESTING QUIETLY, NO S/S OF ACUTE DISTRESS. RESPIRATIONS REGULAR AND UNLABORED. PT DOESN'T APPEARS TO SLEEP THROUGH ROOMMATES REQUEST.
--- NOTE | 2017-01-28 06:55 | NUR ---
RESTING IN BED WITH EYES CLOSED AT THIS TIME. EASILY AROUSES WITH VERBAL STIMULI. DENIES ANY PAIN. CAMPOS CATHETER PATENT AND DRAINING TO BEDSIDE DRAINAGE SYSTEM.
--- NOTE | 2017-01-28 07:43 | NUR ---
HAD BLOOD GLUCOSE OF 34. ORAL GLUCOSE GIVEN, STAT LAB ORDERED. IS AWAKE AND ORIENTED BUT C/O NO FEELING GOOD.
--- NOTE | 2017-01-28 12:05 | NUR ---
SITTING ON SIDE OF BED EATING LUNCH. C/O SORENESS TO RLE.
[2017-01-28 14:48] VITALS: BP 122/69
--- NOTE | 2017-01-28 15:52 | NUR ---
SITTING IN W/C IN ROOM VISITING WITH FRIEND. DENIES NEEDS.
--- NOTE | 2017-01-28 17:18 | NUR ---
SITTING IN ROOM IN W/C EATING SUPPER. DENIES NEEDS
--- NOTE | 2017-01-28 19:30 | NUR ---
PT EXPRESSED CONCERN R/T INSULIN AND LOW BLOOD SUGAR IN THE AM AND NOT WANTING ANY INSULIN THIS EVENING. ENCOURAGED PATIENT TO MAKE A DECISION AFTER WE OBTAINED THE RESULTS FROM HS FSBS. PT AGREED.
[2017-01-28 19:58] VITALS: BP 147/64
--- NOTE | 2017-01-29 00:22 | NUR ---
PT REQUESTED ICE CREAM, PT IS CONCERNED WITH HYPOGLYCEMIA IN AM. PT STATES HIS MOUTH IS ALSO VERY DRY. REVIEWED THE HOLDING OF HIS LEVEMIR INSULIN, PT STILL REQUESTS ICE CREAM. PT IS COGNITIVE OF FLUID RESTRICTION RELATED TO HIS CHF.
--- NOTE | 2017-01-29 03:29 | NUR ---
PT REQUESTED ICE CHIPS FROM RT, WHEN RT STATED SHE NEEDED TO ASK NURSE, HE STATED HE WAS OK.
--- NOTE | 2017-01-29 08:21 | NUR ---
SITTING UP IN BED EATING BREAKFAST. CALL LIGHT IN REACH.
[2017-01-29 10:34] VITALS: BP 152/73
--- NOTE | 2017-01-29 12:23 | NUR ---
SITTING IN W/C WITH BLE ELEVATED ON BED. STILL HAS EDEMA TO BLE. F/C DRAINING PALE YELLOW URINE. HE REFUSED BLADDER TRAINING STATING HE WANTED TO TALK TO RENAL MD FIRST.
--- NOTE | 2017-01-29 18:13 | NUR ---
SITTING IN W/C IN ROOM TALKING ON PHONE. HE HAD BLOODY URINE COMING FROM F/C TODAY AND URINE STOPPED FLOWING APPX 1700. HE VOIDED LARGE AMOUNT AROUND CATHETER AND BED AND CLOTHES WERE SOAKED. F/C REMOVED. IT APPEARED BLOODY MATTER IN WHOLE LENGTH OF INTERNAL CATH. HE HAS VOIDED SINCE CATH REMOVED. DENIES PROBLEMS.
[2017-01-29 19:15] VITALS: BP 130/67
--- NOTE | 2017-01-29 19:30 | NUR ---
PT IN BED WITH HOB UP FOR COMFORT. RECEIVING RESPIRATORY TREATMENT. ALERT & ORIENTED. 800CC FLUID RESTRICTION. PACEMAKER. O2 @ 3.5L. NO IV. MEDS WHOLE. CONTINENT. FSBS ACHS. BED IN LOWEST POSITION AND CALL LIGHT WITHIN REACH.
--- NOTE | 2017-01-29 23:30 | NUR ---
PT IN BED WITH HOB UP FOR COMFORT. EYES CLOSED. CHEST RISING AND FALLING. BED IN LOWEST POSITION AND CALL LIGHT WITHIN REACH.
--- NOTE | 2017-01-30 00:20 | NUR ---
PT RESTING QUIETLY, NO S/S OF ACUTE DISTRESS, RESPIRATIONS REGULAR AND UNLABORED.
--- NOTE | 2017-01-30 03:30 | NUR ---
PT LYING IN BED. EYES CLOSED. RESPIRATIONS EVEN AND UNLABORED. BED IN LOWEST POSITION AND CALL LIGHT WITHIN REACH.
[2017-01-30 06:21] LABS: BASOPHILS 0 % (0-2); EOSINOPHILS 0.9 % (0-7); HEMATOCRIT 29.7 % (42.0-54.0); HEMOGLOBIN 9.5 g/dL (13.5-17.5); IMMATURE GRANULOCYTES 0.5 % (0-5); LYMPHOCYTES 12.2 % (15-50); MCH 27.7 pg (26.0-34.0); MCV 86.6 fL (80.0-100.0); MEAN PLATELET VOLUME 10.9 fL (7.4-10.4); MONOCYTES 5.4 % (2-11); RBC 3.43 10x6/uL (4.20-6.10); RDW 14.6 % (11.5-14.5); WBC 9.9 10x3/uL (4.8-10.8)
[2017-01-30 06:26] LABS: PLATELET COUNT 137 10x3/uL (130-400)
[2017-01-30 06:37] LABS: ANION GAP 13.7 mmol/L (8-16); CARBON DIOXIDE 25.4 mmol/L (21.0-32.0); POTASSIUM - SERUM 4.1 mmol/L (3.5-5.1)
[2017-01-30 08:38] VITALS: BP 150/76
--- NOTE | 2017-01-30 12:06 | NUR ---
SITTING UP IN BED EATING LUNCH. STILL WEARING OXYGEN, EDEMA TO BLE STILL PRESENT.
[2017-01-30 19:00] VITALS: BP 150/74
--- NOTE | 2017-01-30 19:15 | NUR ---
PT IN BED WITH HOB UP FOR COMFORT. WATCHING TV. ALERT & ORIENTED. FSBS ACHS. 800CC FLUID RESTRICTION. PACEMAKER. O2 @ 3.5L. NO IV. MEDS WHOLE. CONTINENT. BED IN LOWEST POSITION AND CALL LIGHT WITHIN REACH.
--- NOTE | 2017-01-30 23:15 | NUR ---
PT IN BED WITH HOB UP FOR COMFORT. EYES CLOSED. CHEST RISING AND FALLING. BED IN LOWEST POSITION AND CALL LIGHT WITHIN REACH.
--- NOTE | 2017-01-31 01:45 | NUR ---
RESTING IN BED, EYES CLOSED. NO APPARENT DISTRESS.
--- NOTE | 2017-01-31 04:45 | NUR ---
PT IN BED WITH HOB UP FOR COMFORT. RESTING QUIETLY. BED IN LOWEST POSITION AND CALL LIGHT WITHIN REACH.
--- NOTE | 2017-01-31 06:46 | NUR ---
Nutrition Follow Up: Pt is eating 100% of meals on a renal ADA diet. +BM 01/29/17. Meds and labs noted. Rec continue current diet. RD following.
--- NOTE | 2017-01-31 08:00 | NUR ---
SHIFT ASSMT COMPLETED.DENIES NEEDS.CL IN REACH.SITTING UP IN CHAIR.BREAKFAST GIVEN.
[2017-01-31 09:26] VITALS: BP 149/76
[2017-01-31 19:05] VITALS: BP 143/65
--- NOTE | 2017-01-31 19:40 | NUR ---
PT. IN BED WITH HOB UP FOR COMFORT. PT. WANTING TO SIGN BED/CHAIR ALARM WAIVER FORM HE GETS INTO W/C TO GO TO BR WITHOUT ASSISTANCE AND STATES HE HAS BEEN DOING SO FOR SEVERAL DAYS. ASSESSMENT COMPLETED. NO OTHER VOICED NEEDS AT THIS TIME AND HIS CALL LIGHT IS WITHIN REACH.
--- NOTE | 2017-01-31 23:18 | NUR ---
PT. IN BED WITH HOB UP FOR COMFORT WITH EYES CLOSED AND RESP. EVEN. O2 ON VIA N/C AT 3.5L/MIN WITHOUT ANY S/S DISTRESS OBSERVED. CALL LIGHT WITHIN REACH.
--- NOTE | 2017-02-01 03:05 | NUR ---
PT. IN BED WITH HOB UP FOR COMFORT WITH EYES CLOSED AND RESP. EVEN. PT. LYING ON HIS LEFT SIDE AND HAS HIS CALL LIGHT WITHIN REACH.
[2017-02-01 05:27] LABS: BASOPHILS 0.1 % (0-2); EOSINOPHILS 0.6 % (0-7); IMMATURE GRANULOCYTES 0.5 % (0-5); LYMPHOCYTES 14.3 % (15-50); MCH 27.8 pg (26.0-34.0); MCHC 32.1 g/dL (31.0-37.0); MCV 86.4 fL (80.0-100.0); MEAN PLATELET VOLUME 10.9 fL (7.4-10.4); MONOCYTES 4.8 % (2-11); NEUTROPHILS 79.7 % (40-80); RBC 3.24 10x6/uL (4.20-6.10); RDW 14.9 % (11.5-14.5); WBC 7.9 10x3/uL (4.8-10.8)
[2017-02-01 05:39] LABS: PLATELET COUNT 100 10x3/uL (130-400)
[2017-02-01 05:49] LABS: ANION GAP 11.3 mmol/L (8-16); CALCIUM 8.5 mg/dL (8.5-10.1); CARBON DIOXIDE 25.3 mmol/L (21.0-32.0); POTASSIUM - SERUM 3.6 mmol/L (3.5-5.1)
[2017-02-01 08:00] VITALS: BP 136/62
--- NOTE | 2017-02-01 08:00 | NUR ---
SHIFT ASSMT COMPLETED,RED CIRCULAR AREA TO LT WRIST/FOREARM NOTED.BREAKFAST GIVEN.CL IN REACH.SITTING UP IN WC.
--- NOTE | 2017-02-01 12:00 | NUR ---
SITTING UP IN WC FOR LUNCH.CL IN REACH.
--- NOTE | 2017-02-01 16:00 | NUR ---
JUST FINISHED SHOWER.RESTING QUIETLY.
--- NOTE | 2017-02-01 17:05 | NUR ---
PATIENT ADMITTED TO REHAB FROM ACUTE FLOOR. HIS PCP IS DR. LEE , HE USES [facility] FOR HIS O2 NEEDS. PATIENT TENATIVE DISCHARGE DATE IS 02/02/17. WILL CONTINUE TO FOLLOW WITH PATIENT.
[2017-02-01 19:00] VITALS: BP 134/63
--- NOTE | 2017-02-01 19:40 | NUR ---
PT REQUESTING WATER AND ICE, REVIEWED INTAKE AND PT DISAGREES WITH INTAKE, PT STATES HE KNOWS WHAT HE HAS BEEN DRINKING AND RECOGNIZES HIS FLUID INTAKE LIMITATIONS.
--- NOTE | 2017-02-01 22:30 | NUR ---
PT REQUESTING FLUID, PT STATES HE KNOWS WHAT HIS LIMITS ARE.
--- NOTE | 2017-02-02 05:14 | NUR ---
PT RESTING QUIETLY LYING ON SIDE, EYES CLOSED RESPIRATIONS REGULAR AND UNLABORED. NO S/S OF ACUTE DISTRESS.
--- NOTE | 2017-02-02 07:58 | NUR ---
PT IS RESTING IN BED WITH EYES OPEN. ALERT AND ORIENTED X 3. HE DENIES ACUTE PAIN OR DISCOMFORT AT THIS TIME. NO SOB NOTED. OW IS ON @ 3LPM PER NC. SR'S ARE UP X 2 IN BED. CALL LING AND BEDSIDE TABLE ARE WITHIN EASY REACH.
[2017-02-02 08:47] VITALS: BP 124/62
--- NOTE | 2017-02-02 09:48 | NUR ---
PT IS SITTING IN A WC IN HIS ROOM READING A PAPER AND WAITING FOR THERAPY. NO NEEDS VOICED.
--- NOTE | 2017-02-02 10:38 | NUR ---
PATIENT DISCHARGING HOME WITH FAMILY. [facility] WILL FOLLOW WITH PATIETN AT HOME. PATIENT STATES THAT DR. LEE IS GETTING A NEBULIZER FOR HIM. DR. LEE 02/15/17 @ 1:30, DR. GLASER/GOPAL CHAVEZ APN 02/09/17 @ 9:40, DR. DOMINIQUE 04/26/17 @ 11:00, DR. FREIDA MCKNIGHT 03/08/17 @ 9:15. PATIENT CHOICE FORM FOR HOME HEALTH AND [facility] FORM SIGNED, EXPLAINED AND FILED IN CHART. ORDERS HAVE BEEN FAXED WITH CONFORMATION RECIEVED
== END 2017-02-02 11:40 | disposition home health service (06) | DRG 91 ==
LOC: D.REHAB 15:20
PROVIDERS: ADMIT Emergency Medicine
DX: G72.89 Other specified myopathies (principal); I50.23 Acute on chronic systolic (congestive) heart failure; I13.0 Hypertensive heart and chronic kidney disease with heart failure and stage 1 through stage 4 chronic kidney disease, or unspecified chronic kidney disease; J98.11 Atelectasis; R13.12 Dysphagia, oropharyngeal phase; N18.9 Chronic kidney disease, unspecified; R53.1 Weakness; E11.22 Type 2 diabetes mellitus with diabetic chronic kidney disease; N40.0 Benign prostatic hyperplasia without lower urinary tract symptoms; I48.91 Unspecified atrial fibrillation

== ENCOUNTER 2017-02-11 17:41 | Inpatient (IN) | payer MEDICARE, BC ==
[~2017-02-11] VITALS: Ht 193 cm; Wt 113.7 kg
[2017-02-11 18:39] LABS: BASOPHILS 0.2 % (0-2); EOSINOPHILS 6.7 % (0-7); HEMATOCRIT 26.1 % (42.0-54.0); IMMATURE GRANULOCYTES 1.9 % (0-5); LYMPHOCYTES 35.8 % (15-50); MCH 26.4 pg (26.0-34.0); MCHC 30.7 g/dL (31.0-37.0); MCV 86.1 fL (80.0-100.0); MEAN PLATELET VOLUME 9.4 fL (7.4-10.4); MONOCYTES 8.8 % (2-11); NEUTROPHILS 46.6 % (40-80); PLATELET COUNT 272 10x3/uL (130-400); RBC 3.03 10x6/uL (4.20-6.10); RDW 16.3 % (11.5-14.5); WBC 4.3 10x3/uL (4.8-10.8)
[2017-02-11 18:51] LABS: ALBUMIN 2.4 g/dL (3.4-5.0); ANION GAP 11.6 mmol/L (8-16); BILIRUBIN - TOTAL 0.63 mg/dL (0.2-1.3); CALCIUM 8.3 mg/dL (8.5-10.1); CARBON DIOXIDE 26.1 mmol/L (21.0-32.0); CREATININE - SERUM 2.2 mg/dL (0.6-1.3); POTASSIUM - SERUM 3.7 mmol/L (3.5-5.1); PROTEIN - SERUM 5.6 g/dL (6.4-8.2)
[2017-02-11 20:00] VITALS: BP 108/65
--- NOTE | 2017-02-11 21:30 | NUR ---
RECEIVED PT FROM ER, PT ALERT AND ORIENTED.
--- NOTE | 2017-02-11 21:35 | NUR ---
AT BED SIDE TALK TO PT.
[2017-02-11 22:18] VITALS: BP 108/65
[2017-02-11 23:05] VITALS: BP 108/65; BMI 30.9
[2017-02-12] VITALS (12 sets, daily range): BP systolic 133–158; BP diastolic 63–75
[2017-02-12 05:31] LABS: BASOPHILS 0.2 % (0-2); EOSINOPHILS 1.9 % (0-7); HEMATOCRIT 24.9 % (42.0-54.0); IMMATURE GRANULOCYTES 1.7 % (0-5); LYMPHOCYTES 33.8 % (15-50); MCH 27.9 pg (26.0-34.0); MCHC 32.1 g/dL (31.0-37.0); MCV 86.8 fL (80.0-100.0); MEAN PLATELET VOLUME 9.2 fL (7.4-10.4); MONOCYTES 10.6 % (2-11); NEUTROPHILS 51.8 % (40-80); PLATELET COUNT 287 10x3/uL (130-400); RBC 2.87 10x6/uL (4.20-6.10); RDW 16.5 % (11.5-14.5); WBC 4.7 10x3/uL (4.8-10.8)
[2017-02-12 05:54] LABS: ALBUMIN 2.3 g/dL (3.4-5.0); ANION GAP 12.6 mmol/L (8-16); BILIRUBIN - TOTAL 0.8 mg/dL (0.2-1.3); CALCIUM 8.3 mg/dL (8.5-10.1); CARBON DIOXIDE 24.9 mmol/L (21.0-32.0); CREATININE - SERUM 2.2 mg/dL (0.6-1.3); POTASSIUM - SERUM 3.5 mmol/L (3.5-5.1); PROTEIN - SERUM 5.5 g/dL (6.4-8.2)
--- NOTE | 2017-02-12 07:15 | NUR ---
ASSESSMENT PER FLOW SHEET.PT IS ON BIPAP 40%. BRUISES NOTED TO BILATERAL ARMS,ABDOMEN AND LEFT FOOT.BILATERAL FEET VERY DRY.STERI STRIPS NOTED TO LEFT INNER CALF X2 WITH SMALL DRESSING OVER THEM.BILATERAL LOWER EXT HAVE PITTING EDEMA.BUTTOCKS RED WITHOUT BREAKDOWN.CALL LIGHT IN REACH.
--- NOTE | 2017-02-12 18:45 | NUR ---
UNIT 1 OF 1 PRBC'S INITIATED.PT WITHOUT REACTIONS.BREATHING BETTER.CONT PLAN OF CARE
--- NOTE | 2017-02-12 19:44 | NUR ---
PT LYING IN BED CONVERSING WITH VISITOR, PT HAS 1 UNIT OF BLOOD INFUSING, BED IS IN LOW POSITION, NO SIGNS OF DISTRESS, CALL LIGHT WITHIN REACH
--- NOTE | 2017-02-12 22:43 | NUR ---
CALLED DR WRIGHT AND RELAYED MESSAGE THAT BLOOD SUGAR IS AT 426, WAS ADVISED TO RESTART LEVEMIR. PT'S PREVIOUS DOSAGE WAS 50UNITS QPM, RESTARTED AND CALLED HS. SPOKE W/ MICHAEL AND WAS ADVISED TO FAX ORDER TO 2350
[2017-02-13] VITALS: BP 130/69
--- NOTE | 2017-02-13 02:00 | NUR ---
PT IN BED WITH NO DISTRESS. RESPIRATIONS EVEN AND UNLABORED. SIDE RAILS X 2. BED IS LOW. CALL LIGHT IN REACH.
--- NOTE | 2017-02-13 02:14 | NUR ---
PT LYING IN BED RECEIVING BREATHING TREATMENT, PT SP IN ROOM WITH PT VISITING. PITTING EDEMA NOTED IN BLLE OF PT. BED IN LOW POSITION WITH HOB ELEVATED, CALL LIGHT IN REACH
[2017-02-13 04:00] VITALS: BP 133/76
[2017-02-13 04:33] LABS: BASOPHILS 0 % (0-2); EOSINOPHILS 0 % (0-7); HEMATOCRIT 26.4 % (42.0-54.0); HEMOGLOBIN 8.4 g/dL (13.5-17.5); LYMPHOCYTES 21.6 % (15-50); MCH 26.8 pg (26.0-34.0); MCHC 31.8 g/dL (31.0-37.0); MCV 84.1 fL (80.0-100.0); MEAN PLATELET VOLUME 8.8 fL (7.4-10.4); MONOCYTES 1.8 % (2-11); NEUTROPHILS 75.6 % (40-80); PLATELET COUNT 276 10x3/uL (130-400); RBC 3.14 10x6/uL (4.20-6.10); RDW 16.7 % (11.5-14.5)
[2017-02-13 04:58] LABS: % SATURATION 18 % (15-55); IRON 37 ug/dl (35-150); TOTAL IRON BIND CAPACITY 204 ug/dl (260-445); UNSAT IRON BIND CAPACITY 167 ug/dl (150-375)
[2017-02-13 05:05] LABS: CALCIUM 8.3 mg/dL (8.5-10.1); CARBON DIOXIDE 23.5 mmol/L (21.0-32.0); CHLORIDE - SERUM 105 mmol/L (98-107); CREATININE - SERUM 2.4 mg/dL (0.6-1.3); FERRITIN 305 ng/mL (3-244); MAGNESIUM - SERUM 2.4 mg/dL (1.8-2.4); PHOSPHOROUS 3.9 mg/dL (2.5-4.9); PRO BNP 14923 pg/mL (0-450); SODIUM 139 mmol/L (136-145); TROPONIN-I 0.019 ng/mL (0.000-0.060); eGFR NON AFRICAN AMERICAN 28 mL/min (90-120)
[2017-02-13 05:11] LABS: CALC OSMOLALITY 299 mosm/kg (275-300); GLUCOSE 356 mg/dL (74-106); POTASSIUM - SERUM 4.2 mmol/L (3.5-5.1); UREA NITROGEN 36 mg/dL (7-18)
[2017-02-13 05:37] LABS: ERYTHROCYTE SEDIMENTATION RATE 68 mm/hr (0-20)
--- NOTE | 2017-02-13 07:30 | NUR ---
PATIENT RESTING QUIETLY WITH HIS EYES CLOSED. AT PATIENT'S BEDSIDE. PATIENT AWAKENS EASILY TO VERBAL STIMULI. PATIENT IS AWAKE, ALERT, AND ORIENTED X4. PATIENT DENIES ANY NEEDS AT PRESENT TIME. CALL LIGHT IN PATIENT'S REACH. WILL MONITOR.
[2017-02-13 09:13] VITALS: BP 136/69
[2017-02-13 13:03] VITALS: BP 137/60
--- NOTE | 2017-02-13 19:27 | NUR ---
PT LYING IN BED ON LT SIDE, EVEN RISE AND FALL OF CHEST, NO SIGNS OF DISTRESS, EYES CLOSED, BREATHING NON LABORED. BED IN LOW POSITION, CALL LIGHT IN REACH
[2017-02-13 20:00] VITALS: BP 117/51
--- NOTE | 2017-02-13 22:29 | NUR ---
ASSISTED PT UP TO RESTROOM, PT ASKED FOR ATIVAN TO HELP WITH SLEEP, NO SIGNS OF DISTRESS WILL CONTINUE WITH CARE PLAN
[2017-02-14] VITALS (21 sets, daily range): BP systolic 117–144; BP diastolic 61–76
[2017-02-14 05:03] LABS: BASOPHILS 0 % (0-2); EOSINOPHILS 0 % (0-7); HEMATOCRIT 24.2 % (42.0-54.0); HEMOGLOBIN 7.8 g/dL (13.5-17.5); IMMATURE GRANULOCYTES 0.4 % (0-5); LYMPHOCYTES 10.4 % (15-50); MCH 27.4 pg (26.0-34.0); MCHC 32.2 g/dL (31.0-37.0); MCV 84.9 fL (80.0-100.0); MEAN PLATELET VOLUME 9.2 fL (7.4-10.4); MONOCYTES 2.9 % (2-11); NEUTROPHILS 86.3 % (40-80); PLATELET COUNT 317 10x3/uL (130-400); RBC 2.85 10x6/uL (4.20-6.10); RDW 16.5 % (11.5-14.5)
[2017-02-14 05:07] LABS: WBC 8.1 10x3/uL (4.8-10.8)
[2017-02-14 05:25] LABS: ALBUMIN 2.2 g/dL (3.4-5.0); ANION GAP 13.3 mmol/L (8-16); BILIRUBIN - TOTAL 0.5 mg/dL (0.2-1.3); CALCIUM 7.9 mg/dL (8.5-10.1); CREATININE - SERUM 2.4 mg/dL (0.6-1.3); POTASSIUM - SERUM 4.3 mmol/L (3.5-5.1); PROTEIN - SERUM 5.2 g/dL (6.4-8.2)
--- NOTE | 2017-02-14 19:26 | NUR ---
PT SITTING UP IN BED VISITING W/ SPOISE. A&O X4. PITTING EDEMA BLLE, OXIMIZER AT 14L. NO APPARENT DISTRESS, BREATHING UNLABORED, BED IN LOW POSITION, NO OTHER NEEDS AT THIS TIME. CALL LIGHT WITHIN REACH
[2017-02-15] VITALS: BP 151/76
[2017-02-15 03:09] LABS: BASOPHILS 0 % (0-2); EOSINOPHILS 0 % (0-7); HEMATOCRIT 28.5 % (42.0-54.0); HEMOGLOBIN 9.3 g/dL (13.5-17.5); LYMPHOCYTES 7.8 % (15-50); MCH 27.4 pg (26.0-34.0); MCHC 32.6 g/dL (31.0-37.0); MCV 84.1 fL (80.0-100.0); MEAN PLATELET VOLUME 8.8 fL (7.4-10.4); MONOCYTES 4.4 % (2-11); NEUTROPHILS 86.8 % (40-80); PLATELET COUNT 285 10x3/uL (130-400); RBC 3.39 10x6/uL (4.20-6.10); RDW 15.7 % (11.5-14.5); WBC 8.4 10x3/uL (4.8-10.8)
[2017-02-15 03:20] LABS: ANION GAP 13.2 mmol/L (8-16); CALCIUM 8.2 mg/dL (8.5-10.1); CARBON DIOXIDE 24.7 mmol/L (21.0-32.0); CREATININE - SERUM 2.5 mg/dL (0.6-1.3); POTASSIUM - SERUM 3.9 mmol/L (3.5-5.1)
[2017-02-15 03:47] VITALS: BP 147/72
--- NOTE | 2017-02-15 06:00 | NUR ---
EYES CLOSED RESPIRATIONS WITH EASE AND UNLABORED.
--- NOTE | 2017-02-15 07:15 | NUR ---
PATIENT RECEIVED ALERT IN MID MELÉNDEZ POSITION RESTING QUIETLY. RESPIRATIONS EVEN AND UNLABORED. DENIES NEEDS. SIDE RAILS UP X2. BED IN LOW POSITION. CALL LIGHT IN REACH.
--- NOTE | 2017-02-15 07:55 | HP ---
PATIENT: ANASTASIIA FONTENOT MEDICAL RECORD: [id number] ACCOUNT: [id number] LOCATION:D.[id number] : 39 ADMISSION DATE: 02/11/17 HISTORY AND PHYSICAL EXAMINATION HISTORY OF PRESENT ILLNESS: A 76-year-old male presented to the hospital with progressive shortness of breath. He has had recent hospitalization and rehab with same findings. PAST MEDICAL HISTORY: History of pneumonia, edema or chronic kidney disease, CHF with ejection fraction of 35%, mitral valve regurgitation, aortic insufficiency, BPH and COPD. He has been on 4+ liters of oxygen at home, history of atrial fibrillation, has a dual chamber pacemaker, on amiodarone; has some toxicity signs on amiodarone, before this was stopped and then restarted. Also includes coronary artery bypass grafting, stent placement, angioplasty, hernia repair times 3. Also includes diabetes. CHIEF COMPLAINT: Extreme shortness of breath. He is very weak, difficulty just going to the bathroom and back. FAMILY HISTORY: Lung cancer in mother. ALLERGIES: LISTED PENICILLIN. CURRENT MEDICATIONS: Insulin sliding scale, tamsulosin 0.4 mg daily, ipratropium and albuterol (DuoNeb) q.4 hours, amlodipine 10 mg daily, aspirin 81 mg daily, Lasix 40 mg b.i.d., Renvela 0.8 p.o. t.i.d., Tessalon Perles t.i.d., acidophilus, Levemir 50 units at bedtime and prednisone taper. REVIEW OF SYSTEMS: GENERAL: No acute change in weight. HEENT: No cephalgia, visual changes, tinnitus, epistaxis, or dysphagia. CARDIOVASCULAR: Extensive history as above, progressive shortness of breath. PULMONARY: Denies hemoptysis, denies night sweats. GASTROINTESTINAL: Denies hematemesis, hematochezia, or melena. GENITOURINARY: Denies dysuria. History as above. MUSCULOSKELETAL: No acute changes. ENDOCRINE: History of diabetes with neuropathy, no acute changes. PHYSICAL EXAMINATION: VITAL SIGNS: Temp 98.4, blood pressure is 140/63, heart rate 72, respirations 18 and O2 sats 96% on 12 liters via oxymizer. GENERAL: Alert, oriented and comfortable at rest. HEENT: Normocephalic and atraumatic. Eyes: Pupils are equal, round, reactive to light and accommodation. Extraocular muscles are intact. Conjunctiva was not injected. Ears: Canals are patent, TMs are intact. Nose: Nares patent without drainage. Throat: No erythema and no exudates. NECK: Supple. No lymphadenopathy and no JVD. HEART: Regular rate and rhythm. LUNGS: Prolonged expiratory phase. Breathing is nonlabored with extensive supplemental O2. ABDOMEN: Soft, nontender, bowel sounds positive. EXTREMITIES: Present times 4, bilateral lower extremity edema. NEUROLOGIC: No focal deficits. HISTORY AND PHYSICAL [id number] ANASTASIIA FONTENOT LABORATORY DATA: ABG shows a pH of 7.476, pCO2 of 31.5 and pO2 of 67. Hemoglobin on ABG is 7, hematocrit 21. CBC shows a white count of 4.7, hemoglobin of 8, hematocrit 24.9 and platelets 287. Chemistry shows a sodium of 142, potassium 3.5, chloride 108, bicarb 24.9, BUN 27, creatinine 2.2 and glucose 129. CK is 34. ProBNP is 9124. Perfusion scan negative for pulmonary emboli. CT of the chest, worsening of mild to moderate congestive heart failure, possible pneumonia, possible changes associated with amiodarone toxicity that is discuss with contact manager, Dr. Adan. Blood cultures are pending. ASSESSMENT AND PLAN: 1. Acute anemia. Check stool for occult blood. Transfusion has already been ordered by pulmonology, we will monitor. 2. Chronic obstructive pulmonary disease, congestive heart failure, pending respiratory failure, multiple comorbidities, pulmonology consulted. IV diuresis, supportive care, steroids restarted. 3. Diabetes. Restart sliding scale insulin, monitor. TRANSINT:[id number] Voice Confirmation ID: [id number] DOCUMENT ID: [id number] TIFFANY GALLAGHER DO at 0755 CC: [id number] DICTATION DATE: 02/12/171425 LIQUOR ESTABLISHMENT MANAGER: 02/12/171942 ADM IN [place] [id number] [facility] [place] [address]
[2017-02-15 08:29] VITALS: BP 141/75
--- NOTE | 2017-02-15 08:33 | NUR ---
PATIENT ALERT IN HIGH MELÉNDEZ POSITION. NO SIGNS OF DISTRESS NOTED. SCHEDULED MEDICATION ADMINISTERED. IV TO RIGHT HAND PATENT. FLUSHES EASY AND NO REDNESS NOTED. DENIES NEEDS. SIDE RAILS UP X2. BED IN LOW POSITION. CALL LIGHT IN REACH.
--- NOTE | 2017-02-15 11:40 | NUR ---
PATIENT SITTING UP ON SIDE OF BED ALERT. ACCU CHECK 388. INSULIN PER SLIDING SCALE. DENIES NEEDS. FAMILY PRESENT. BED IN LOW POSITION. CALL LIGHT IN REACH.
--- NOTE | 2017-02-15 12:54 | NUR ---
Patient Name: ANASTASIIA FONTENOT Admission Status: ER Accout number: [id number] Admission Date: 02-11-2017 : 1940 Admission Diagnosis:SHORTNESS OF BREATH Attending: MENA Current LOS: 4 Anticipated DC Date: 02-20-2017 Planned Disposition: Home with Home Health Primary Insurance: MEDICARE A & B Discharge Planning Comments: CM MET WITH PATIENT REGARDING D/C NEEDS AND PLANS. PATIENT STATED HE LIVES WITH HIS AND SHE WILL DRIVE HIM HOME AT DISCHARGE. PATIENT STATED HE HAS A RAMP TO ENTER HIS HOME AND HAS NO STAIRS INSIDE HOME. PATIENT STATED HE HAS A WALKER, SHOWER CHAIR, OXYGEN, PORTABLE O2, AND NEBULIZER AT HOME. OXYGEN IS SUPPLIE BY [facility]. PATIENTS PCP IS DR. LEE AND PHARMACY IS [facility]. PATIENT IS CURRENT WITH [facility]. CM WILL CONTINUE TO FOLLOW PATIENT WITH D/C NEEDS AND PLANS. PCP DR. ROSA IRIZARRY BY [facility]- [phone] EDA () CELL [phone] HOME [phone] Reporting Consultant: Antoinette Sherman Is the patient Alert and Oriented? Yes 0 * How many steps to enter\exit or inside your home? RAMP 0 * PCP DR. LEE 0 * Pharmacy [email or web address] 0 * Preadmission Environment Home with Family 0 * ADLs Independent 0 * Additional services required to return to the preadmission environment? Yes 0 * Can the patient safely return to the preadmission environment? Yes 0 * Has this patient been hospitalized within the prior 30 days at any hospital? Yes 0 Grand Total: 0
[2017-02-15 13:06] VITALS: BP 129/63
--- NOTE | 2017-02-15 13:54 | EC ---
PATIENT:ANASTASIIA FONTENOT DATE OF SERVICE: 02/11/17 SEX: M MEDICAL RECORD: [id number] DATE OF : [birth year] LOCATION:D.[facility] AGE OF PATIENT: 76 ADMISSION DATE: 02/11/17 REFERRING PHYSICIAN: INTERPRETING PHYSICIAN: LEWIS RYAN MD ECHOCARDIOGRAM REPORT ECHO CHARGES 4 ECHO COMPLETE CLINICAL DIAGNOSIS: AHYPOXIA/ASSESS EF HX CAD/CABG ECHOCARDIOGRAPHIC MEASUREMENTS (adult normal given) AC root (d.<3.7cm) 4.8 cm LV Septum d (<1.2 cm> 1.6 cm Valve Excursion 2.3 cm LV Septum (systole) 2.1 cm Left Atria (s.<4.0cm> cm LVPW d(<1.2cm) 1.7 cm RV (d.<2.3cm) cm LVPW (sytole) 2.0 cm LV diastole(<5.6CM) 7.8 cm MV E-F(>70mm/sec) cm LV systole 5.5 cm LVOT Diameter 2.1 cm MV exc.(>10mm) 1.9 cm Est.ejection fraction (50-75%) % Pericardial Effusion N DOPPLER: LVIT cm/sec A 71.0 cm/sec E 106 cm/sec LA cm/sec RVSP 61 mmHg LVOT 136 cm/sec AOP1/2T m/s Asc. Ao 197 cm/sec RVOT 123 cm/sec RA cm/sec PA 153 cm/sec AV Gradient Peak 15.59mmHg AV Mean 8.16 mmHg AV Area 2.1 cm MV Gradient Peak 5.52 mmHg MV Mean 2.17 mmHg MV Area cm COMMENTS: [employer] Hazmat Driver: Baltazar GARLAND Tile Setter: 1 Dr. Ryan TAPE# PACS DATE OF SERVICE: 02/12/2017 Echocardiogram FINDINGS: 1. Left ventricular chamber size is dilated. Left ventricular systolic function is moderately reduced. Overall ejection fraction is 35%. 2. Left atrium, right atrium, and right ventricular chamber sizes are dilated. 3. Valvular structures have normal structure and motion. 4. Doppler interrogation reveals [id number] mitral regurgitation, ECHOCARDIOGRAM REPORT [id number] ANASTASIIA FONTENOT [id number] tricuspid regurgitation, no other valvular insufficiency or stenosis and pulmonary systolic pressure is elevated estimated at 61 mmHg. 5. No evidence of pericardial effusion or a left ventricular thrombus. TRANSINT:[id number] Voice Confirmation ID: [id number] DOCUMENT ID: [id number] LEWIS RYAN MD at 1354 CC: [id number] DICTATION DATE: 02/13/17 1020 ELECTRONIC PREPRESS OPERATOR: 02/13/17 1157 ADM IN [facility] [address] [place] [address]
--- NOTE | 2017-02-15 15:20 | NUR ---
PATIENT IN LEFT LATERAL POSITION RESTING WITH EYES CLOSED. RESPIRATIONS EVEN AND UNLABORED. SIDE RAILS UP X2. BED IN LOW POSITION. CALL LIGHT IN REACH.
[2017-02-15 16:29] VITALS: BP 120/55
--- NOTE | 2017-02-15 16:36 | NUR ---
ALERT IN BED WITH PRESENT. NO SIGNS OF DISTRESS NOTED. ACCU CHECK 396. INSULIN PER SLIDING SCALE. DENIES NEEDS. SIDE RAILS UP X2. BED IN LOW POSITION. CALL LIGHT IN REACH.
[2017-02-15 20:00] VITALS: BP 122/59
--- NOTE | 2017-02-15 21:40 | NUR ---
RECIEVED TO ROOM 2206 FROM OUTPATIENT. ALERT ORIENTED. NO DISTRESS NOTED. NO COMPLAINTS VOICED. IV INFUSING TO LEFT ARM WITHOUT REDNESS OR EDEMA NOTED. FAMILY AT BEDSIDE.
--- NOTE | 2017-02-15 21:44 | NUR ---
AWAKE,ALERT.NO DISTRESS NOTED. O2 @ 15 L PER OXIMIZER. RESP UNLABORED. SL TO RIGHT FOREARM WITHOUT REDNESS OR EDEMA NOTED. CL IN REACH
--- NOTE | 2017-02-15 23:35 | NUR ---
EYES CLOSED RESPIRATIONS WITH EASE AND UNLABORED.
[2017-02-16] VITALS: BP 143/70
[2017-02-16 04:00] VITALS: BP 140/73
[2017-02-16 04:59] LABS: BASOPHILS 0 % (0-2); EOSINOPHILS 0 % (0-7); HEMOGLOBIN 9.3 g/dL (13.5-17.5); LYMPHOCYTES 8.2 % (15-50); MCH 26.9 pg (26.0-34.0); MCHC 32.1 g/dL (31.0-37.0); MCV 83.8 fL (80.0-100.0); MEAN PLATELET VOLUME 9.5 fL (7.4-10.4); MONOCYTES 5.2 % (2-11); NEUTROPHILS 85.6 % (40-80); PLATELET COUNT 305 10x3/uL (130-400); RBC 3.46 10x6/uL (4.20-6.10); RDW 15.6 % (11.5-14.5); WBC 8.8 10x3/uL (4.8-10.8)
--- NOTE | 2017-02-16 05:04 | NUR ---
AWAKE WITOUT COMPLAINTS. NO CHANGE IN ASSESSMENT. CL IN REACH
[2017-02-16 05:14] LABS: ANION GAP 13.8 mmol/L (8-16); CARBON DIOXIDE 24.4 mmol/L (21.0-32.0); CREATININE - SERUM 2.6 mg/dL (0.6-1.3); POTASSIUM - SERUM 4.2 mmol/L (3.5-5.1)
[2017-02-16 09:15] VITALS: BP 124/74
--- NOTE | 2017-02-16 10:17 | NUR ---
RECIVED FROM MED SURG PER PT AMB.
[2017-02-16 10:56] VITALS: Ht 193 cm; Wt 113.7 kg
[2017-02-16 11:22] VITALS: BP 142/82
[2017-02-16 16:03] VITALS: BP 156/76
[2017-02-16 19:00] VITALS: BP 156/78
--- NOTE | 2017-02-16 21:37 | NUR ---
INTRODUCED MYSELF TO PT NIGHTSHIFT MED PASS NURSE. PT SITTING UP IN BED RESTING QUIETLY. SWALLOWED ALL HIS NIGHTLY MEDICATIONS WITHOUT ANY DIFFICULTIES. FSBS 289 PT REC'D 10 UNITS OF HIS FAST ACTING INSULIN ALONG WITH HIS LONG ACTING INSULIN. INITIATED IVPB DOXYCYCLINE INFUSING VIA R.HAND PIV WTIH DRSG CDI AND SWAB CAPS IN USE. PT HAS L.HAND PIV WITH DOBUTAMINE DRIP INFUSING @17.7ML/HR. PT DENIES ANY CURRENT PAIN OR FURTHER NEEDS AT THIS TIME. CL IN REACH, BED IN LOWEST, SIDE RAILS X2. WILL CPOC.
--- NOTE | 2017-02-16 22:00 | NUR ---
ASSESSMENT COMPLETE PER FLOWSHEET.
--- NOTE | 2017-02-17 | NUR ---
ON BIPAP 45 PERCENT FIO2. NO CO AT TIME
--- NOTE | 2017-02-17 | NUR ---
SLEEPING NO DISTRESS NOTED. SR UP X 2. CALL LIGHT WITH IN REACH.
--- NOTE | 2017-02-17 02:00 | NUR ---
UP TO USE URINAL. VOIDED 400CC.
[2017-02-17 04:00] VITALS: BP 155/82
--- NOTE | 2017-02-17 04:30 | NUR ---
SLEEPING NO DISTRESS NOTED. SR UP X 2. CALL LIGHT WITHIN REACH.
[2017-02-17 05:25] LABS: ALBUMIN 2.4 g/dL (3.4-5.0); ANION GAP 11.9 mmol/L (8-16); BILIRUBIN - TOTAL 0.75 mg/dL (0.2-1.3); CALCIUM 8.5 mg/dL (8.5-10.1); CARBON DIOXIDE 26.1 mmol/L (21.0-32.0); CREATININE - SERUM 2.1 mg/dL (0.6-1.3); PROTEIN - SERUM 5.7 g/dL (6.4-8.2)
[2017-02-17 06:10] LABS: BASOPHILS 0.1 % (0-2); EOSINOPHILS 0 % (0-7); HEMATOCRIT 31.1 % (42.0-54.0); HEMOGLOBIN 10.2 g/dL (13.5-17.5); IMMATURE GRANULOCYTES 3.9 % (0-5); LYMPHOCYTES 10.1 % (15-50); MCH 27.2 pg (26.0-34.0); MCHC 32.8 g/dL (31.0-37.0); MCV 82.9 fL (80.0-100.0); MEAN PLATELET VOLUME 9.3 fL (7.4-10.4); NEUTROPHILS 77.9 % (40-80); PLATELET COUNT 355 10x3/uL (130-400); RBC 3.75 10x6/uL (4.20-6.10); RDW 15.7 % (11.5-14.5)
--- NOTE | 2017-02-17 07:10 | NUR ---
ASSESSMENT DONE. DENIES NEEDS.
[2017-02-17 07:54] VITALS: BP 143/67
--- NOTE | 2017-02-17 09:33 | NUR ---
UP IN CHAIR. IV PATENT. DR. LEE AT BS. WILL CONT. PLAN OF CARE.
[2017-02-17 11:37] VITALS: BP 127/88
[2017-02-17 15:23] VITALS: BP 147/69
--- NOTE | 2017-02-17 17:29 | NUR ---
WITHOUT CHANGES OR DISTRESS NOTED AT THIS TIME. DENIES NEEDS.
[2017-02-18] VITALS: BP 169/82
[2017-02-18 04:00] VITALS: BP 159/72
--- NOTE | 2017-02-18 06:14 | NUR ---
FSBS 62. SNACK GIVEN. AM LAB DRAWN FROM RIGHT PICC LINE. PT RESTING.
[2017-02-18 06:38] LABS: HEMATOCRIT 32.7 % (42.0-54.0); HEMOGLOBIN 10.6 g/dL (13.5-17.5); MCH 27.2 pg (26.0-34.0); MCHC 32.4 g/dL (31.0-37.0); MCV 83.8 fL (80.0-100.0); MEAN PLATELET VOLUME 9.4 fL (7.4-10.4); PLATELET COUNT 341 10x3/uL (130-400)
[2017-02-18 06:50] LABS: ANION GAP 6.1 mmol/L (8-16); CALCIUM 8.3 mg/dL (8.5-10.1); CARBON DIOXIDE 29.3 mmol/L (21.0-32.0); CREATININE - SERUM 1.8 mg/dL (0.6-1.3); POTASSIUM - SERUM 3.4 mmol/L (3.5-5.1)
[2017-02-18 07:08] LABS: EOSINOPHILS 1 % (0-7); LYMPHOCYTES 41 % (15-50); MONOCYTES 3 % (2-11); NEUTROPHILS 44 % (40-80)
[2017-02-18 07:09] LABS: PLATELET ESTIMATE NORMAL
--- NOTE | 2017-02-18 07:30 | NUR ---
ASSESSMENT COMPLETED. DENIES ANY NEEDS. O2 AT7 L/M PER OXIMIZER.PICC LINE TO RIGH ARM. NS AT 10 CCHR. DOBUTAMINE AT 17.5 MG. TELEMERTY SHOWS SR WITH PACED BEATS. EDEMA TO LEGGS AND FEET
[2017-02-18 08:00] VITALS: BP 149/67
--- NOTE | 2017-02-18 11:20 | NUR ---
AMBULATING HALLS WITH PT
[2017-02-18 11:53] VITALS: BP 145/70
--- NOTE | 2017-02-18 15:58 | NUR ---
DOBUTAMINE DCD PER ORDERS. UP IN BEDSIDE CHAIR. DENIES ANY NEEDS.
--- NOTE | 2017-02-18 18:22 | NUR ---
UP IN BEDSIDE CHAIR. DENIES ANY NEEDS. CALL LIGHT IN REACH. WILL MONITOR
--- NOTE | 2017-02-18 19:30 | NUR ---
RECEIVED PT IN BEWD WATCHING TV DENIES ANY NEEDS OR DISCOMFORT AT THIS TIME
[2017-02-18 20:00] VITALS: BP 147/73
--- NOTE | 2017-02-18 21:03 | NUR ---
FSBS 241 PT REFUSED COVERAGE STATED HE WAS GOING TO GET LEVIMIER 50 UNITS AND HIS SUGAR HAD DROPPED DOWN TO LOW THIS MORNING
[2017-02-19] VITALS: BP 156/72
--- NOTE | 2017-02-19 03:05 | NUR ---
RESTING QUIETLY EYES CLOSED RESP UNLABORED NAD NOTED
[2017-02-19 04:00] VITALS: BP 150/68
[2017-02-19 05:31] LABS: BASOPHILS 0.2 % (0-2); EOSINOPHILS 0.3 % (0-7); HEMOGLOBIN 9.9 g/dL (13.5-17.5); IMMATURE GRANULOCYTES 6.2 % (0-5); LYMPHOCYTES 19.9 % (15-50); MCHC 31.9 g/dL (31.0-37.0); MCV 84.7 fL (80.0-100.0); MONOCYTES 9.6 % (2-11); NEUTROPHILS 63.8 % (40-80); PLATELET COUNT 264 10x3/uL (130-400); RBC 3.66 10x6/uL (4.20-6.10); RDW 16.2 % (11.5-14.5); WBC 8.7 10x3/uL (4.8-10.8)
[2017-02-19 05:43] LABS: ANION GAP 6.8 mmol/L (8-16); CALCIUM 8.3 mg/dL (8.5-10.1); CARBON DIOXIDE 31.9 mmol/L (21.0-32.0); CREATININE - SERUM 1.7 mg/dL (0.6-1.3); MAGNESIUM - SERUM 2.2 mg/dL (1.8-2.4); POTASSIUM - SERUM 3.7 mmol/L (3.5-5.1)
--- NOTE | 2017-02-19 05:53 | NUR ---
GLUCOSE 65 PER LAB DRAW 4 OZ OF ORANGE JUICE AND URSZULA CRACKERS GIVEN
--- NOTE | 2017-02-19 06:42 | NUR ---
FSBS 73 4 OUNCES OF ORANGE JUICE GIVEN WITH URSZULA CRACKERS
--- NOTE | 2017-02-19 07:47 | NUR ---
ASSESSMENT COMPLETED. TELEMERTY SHOWS PACED RHYTHM AT 70. O2 AT 7 L/M PER OXIMIZER. PT HAS A RIGHT ARM PICC LINE. EDEMA TO FEET. DENIES ANY NEEDS. CALL LIGHT IN REACH WITH SR UP. NO NEEDS VOICED
[2017-02-19 08:34] VITALS: BP 144/66
[2017-02-19 12:04] VITALS: BP 151/75
[2017-02-19 16:00] VITALS: BP 160/83
--- NOTE | 2017-02-19 18:48 | NUR ---
UP IN BEDSIDE CHAIR. DENIES ANY NEEDS.CALL LIGHT IN REACH
--- NOTE | 2017-02-19 19:30 | NUR ---
RECEIVED PT IN BED AAOX4 RESP UNLABORED DENIES ANY NEEDS OR DISCOMFORT AT THIS TIME NAD NOTED
[2017-02-19 21:40] VITALS: BP 157/81
--- NOTE | 2017-02-19 21:56 | NUR ---
FSBS 257 REGULAR INSULIN 10 UNITS GIVEN SQ
[2017-02-20] VITALS: BP 145/66
[2017-02-20 05:22] LABS: BASOPHILS 0.1 % (0-2); EOSINOPHILS 1.1 % (0-7); HEMATOCRIT 32.5 % (42.0-54.0); HEMOGLOBIN 10.5 g/dL (13.5-17.5); IMMATURE GRANULOCYTES 7.7 % (0-5); LYMPHOCYTES 24.2 % (15-50); MCH 27.7 pg (26.0-34.0); MCHC 32.3 g/dL (31.0-37.0); MCV 85.8 fL (80.0-100.0); MEAN PLATELET VOLUME 9.2 fL (7.4-10.4); MONOCYTES 7.7 % (2-11); NEUTROPHILS 59.2 % (40-80); PLATELET COUNT 253 10x3/uL (130-400); RBC 3.79 10x6/uL (4.20-6.10); RDW 16.4 % (11.5-14.5); WBC 7.4 10x3/uL (4.8-10.8)
[2017-02-20 05:39] LABS: ANION GAP 9.6 mmol/L (8-16); CALCIUM 8.5 mg/dL (8.5-10.1); CARBON DIOXIDE 31.8 mmol/L (21.0-32.0); CREATININE - SERUM 1.9 mg/dL (0.6-1.3); POTASSIUM - SERUM 3.4 mmol/L (3.5-5.1)
--- NOTE | 2017-02-20 05:59 | NUR ---
FSBS 126
--- NOTE | 2017-02-20 07:30 | NUR ---
ASSESSMENT DONE. DENIES NEEDS.
[2017-02-20 08:00] VITALS: BP 123/69
--- NOTE | 2017-02-20 08:04 | NUR ---
SPO2 94 ON N3L VIA OXIMIZER. ATTEMPT TO WEAN DOWN ON REPLACED OXIMIZER WITH REG NASAL CANNULA
--- NOTE | 2017-02-20 09:37 | NUR ---
RESTS WITH EYES CLOSED. RESP UL ON . CALL LIGHT IN REACH. WILL CONT. PLAN OF CARE.
[2017-02-20 12:46] VITALS: BP 138/75
--- NOTE | 2017-02-20 13:47 | NUR ---
Nutrition follow-up: Diet: ADA consistent CHO PO intake 100% of meals Labs reviewed +BM RDN following.
--- NOTE | 2017-02-20 15:11 | NUR ---
Patient Name: ANASTASIIA FONTENOT Encounter No: [id number] : 1940 Primary Insurance: MEDICARE A & B Anticipated DC Date: 02-21-2017 Planned Disposition: Home with Home Health External Planned Provider: [facility] DCP follow-up note: CM RECEIVED DISCHARGE PLANNING AND HOME HEALTH ORDER. CM MET WITH PT IN ROOM WHO REPORTS AGREEMENT WITH DISCHARGE PLAN FOR TOMORROW, FAMILY TO TRANSPORT HOME TOMORROW. PT REPORTS HAVING [facility] WITH [facility]READ[facility]. IMPORTANT MESSAGE FROM MEDICARE PROVIDED AND EXPLAINED. CM CALLED [facility], , SPOKE TO BRUNILDA WHO VERIFIED PT ON HOLD AND [facility] WOULD RESUME ON MONDAY. CM FAXED HOME HEALTH REFERRAL TO [phone]. TO RESUME HOME HEALTH FOR DISCHARGE HOME, FAX DISCHARGE INFORMATION TO [facility] AT [phone], NOTIFY [facility] AT [phone]. Pb Spencer, CASE MANAGEMENT
[2017-02-20 16:00] VITALS: BP 136/68
--- NOTE | 2017-02-20 17:57 | NUR ---
WITHOUT CHANGES OR DISTRESS NOTED AT THIS TIME. DENIES NEEDS.
--- NOTE | 2017-02-20 19:42 | NUR ---
RECEIVED REPORT, WILL ASSUME CARE OF PT, ASKING FOR ICE, WILL GIVE, BED IS LOW, SRX2, CALL LIGHT IN REACH, WILL CONTINUE PLAN OF CARE
[2017-02-20 20:59] VITALS: BP 144/79
--- NOTE | 2017-02-21 00:11 | NUR ---
ASSESSMENT COMPLETE, SEE FLOWSHEET, BED IS LOW, SRX2, CALL LIGHT IN REACH, WILL CONTINUE PLAN OF CARE
[2017-02-21 01:20] VITALS: BP 150/88
--- NOTE | 2017-02-21 03:41 | NUR ---
RECIEVED REPORT FROM ISRRAEL LION @ 5281. CHECKED IN ON PATIENT, SLEEPING, RR EVEN AND UNLABORED, NO S&S OF DISTRESS NOTED. TELEMETRY ON AND SHOWING SR @ 71. BED LOW AND LOCKED, CALL LIGHT IN REACH. WILL CPOC.
[2017-02-21 05:04] VITALS: BP 111/72; BP 132/72
[2017-02-21 05:26] LABS: BASOPHILS 0.1 % (0-2); EOSINOPHILS 0.5 % (0-7); HEMATOCRIT 33.6 % (42.0-54.0); HEMOGLOBIN 10.8 g/dL (13.5-17.5); IMMATURE GRANULOCYTES 5.4 % (0-5); MCH 27.2 pg (26.0-34.0); MCHC 32.1 g/dL (31.0-37.0); MCV 84.6 fL (80.0-100.0); MEAN PLATELET VOLUME 9.7 fL (7.4-10.4); MONOCYTES 7.1 % (2-11); NEUTROPHILS 60.9 % (40-80); PLATELET COUNT 279 10x3/uL (130-400); RBC 3.97 10x6/uL (4.20-6.10); RDW 16.1 % (11.5-14.5); WBC 9.1 10x3/uL (4.8-10.8)
[2017-02-21 05:48] LABS: ANION GAP 9.9 mmol/L (8-16); CALCIUM 8.5 mg/dL (8.5-10.1); CARBON DIOXIDE 33.2 mmol/L (21.0-32.0); MAGNESIUM - SERUM 1.8 mg/dL (1.8-2.4); PHOSPHOROUS 4.4 mg/dL (2.5-4.9); POTASSIUM - SERUM 3.1 mmol/L (3.5-5.1)
[2017-02-21] MEDS ORDERED: VIBRAMYCIN 100100 MG PO (06:55)
[2017-02-21] MEDS ORDERED: BACTRIM DS TABL1 TAB PO (06:55)
[2017-02-21] MEDS ORDERED: LASIX40 MG PO (06:56)
[2017-02-21] MEDS ORDERED: K-TAB10 MEQ PO (06:56)
[2017-02-21] MEDS ORDERED: METOLAZONE2.5 MG PO (06:58)
[2017-02-21] MEDS ORDERED: PULMICORT0.5 MG/21 UPD (06:58)
[2017-02-21] MEDS ORDERED: LEVEMIR100 U/M1 SC (06:59)
[2017-02-21] MEDS ORDERED: HUMULIN R100 U/ML SC (06:59)
--- NOTE | 2017-02-21 08:07 | NUR ---
ASSESSMENT DONE. DENIES NEEDS.
[2017-02-21 08:12] VITALS: BP 146/76
--- NOTE | 2017-02-21 09:16 | NUR ---
UP IN CHAIR WITH CALL LIGHT IN REACH. WILL MONITOR NEEDS.
--- NOTE | 2017-02-21 10:43 | NUR ---
Patient Name: ANASTASIIA FONTENOT Encounter No: [id number] : 1940 Primary Insurance: MEDICARE A & B Anticipated DC Date: 02-21-2017 Planned Disposition: Home with Home Health External Planned Provider: [facility] DCP follow-up note: CM RECEIVED DISCHARGE ORDER, CM FAXED DISCHARGE INFORMATION TO [facility] AT [phone], CALLED BRUNILDA OF [facility] AT [phone]. PT NOTIFIED, REPORTS SPOUSE TO PICK HIM UP FOR DISCHARGE HOME TODAY. NO FURTHER DISCHARGE NEEDS IDENTIFIED. BRETT PARKER, CASE MANAGEMENT
--- NOTE | 2017-02-21 11:50 | NUR ---
ORDER RECEIVED TO REMOVED PICC LINE FOR DISCHARGE. MY HANDS WASHED. GLOVES DONNED. DRESSING REMOVED. SITE CLEAN AND DRY. SITE CLEANED WITH CHLORA-PREP. NO SUTURES. PT INSTRUCTED TO DEEP BREATH,HOLD IT AND BEAR DOWN. CATH REMOVED AT 1 INCH INCREMENTS UNTIL ALL 42 CM REMOVED WITH TIP INTACT. NO SIGNS OF INFECTION ON TIP. NEOSPORIN OINT APPLIED AND 2X2 WITH TEGADREM APPLIED. PT INSTRUCTED TO KEEP DRESSING CLEAN, DRY AND INTACT FOR 24 HOURS AND [address]ACE IT. PT ALSO INSTRUCTED ABOUT SIGNS OF BLEEDING AND INFECTION. PT VERABALIZES UNDERSTANDING. PT BOSTON PROCEDURE WELL.
--- NOTE | 2017-02-21 13:08 | NUR ---
DC GIVEN TO PT
--- NOTE | 2017-02-21 13:17 | NUR ---
DC HOME PER PERSONAL CAR
== END 2017-02-21 13:17 | disposition home health service (06) | DRG 291 ==
LOC: D.ER 17:41 → D.MS 20:15 → D.M2 02-16 10:15
PROVIDERS: Emergency Medicine; Family Medicine; Internal Medicine Pulmonary Disease; Legal Medicine; ADMIT Family Medicine
PROC: 07DR3ZX Extraction of Iliac Bone Marrow, Percutaneous Approach, Diagnostic (ICD-10-PCS; 2017-02-15)
PROC: 02HV33Z Insertion of Infusion Device into Superior Vena Cava, Percutaneous Approach (ICD-10-PCS; principal; 2017-02-17)
PROC: B548ZZA Ultrasonography of Superior Vena Cava, Guidance (ICD-10-PCS; 2017-02-17)
DX: I13.0 Hypertensive heart and chronic kidney disease with heart failure and stage 1 through stage 4 chronic kidney disease, or unspecified chronic kidney disease (principal); I50.23 Acute on chronic systolic (congestive) heart failure; J96.02 Acute respiratory failure with hypercapnia; J96.01 Acute respiratory failure with hypoxia; J18.9 Pneumonia, unspecified organism; N18.4 Chronic kidney disease, stage 4 (severe); N13.8 Other obstructive and reflux uropathy; J44.0 Chronic obstructive pulmonary disease with (acute) lower respiratory infection; E11.22 Type 2 diabetes mellitus with diabetic chronic kidney disease; E11.21 Type 2 diabetes mellitus with diabetic nephropathy; E11.40 Type 2 diabetes mellitus with diabetic neuropathy, unspecified; E78.5 Hyperlipidemia, unspecified; I48.91 Unspecified atrial fibrillation; Z95.0 Presence of cardiac pacemaker; Z99.81 Dependence on supplemental oxygen; N40.1 Benign prostatic hyperplasia with lower urinary tract symptoms; I25.10 Atherosclerotic heart disease of native coronary artery without angina pectoris; I42.9 Cardiomyopathy, unspecified; I27.2 Other secondary pulmonary hypertension; D63.1 Anemia in chronic kidney disease; J45.909 Unspecified asthma, uncomplicated; K21.9 Gastro-esophageal reflux disease without esophagitis

== ENCOUNTER 2017-03-23 10:06 | Emergency (ER) | payer MEDICARE, BC ==
[2017-02-16 10:56] VITALS: BMI 31.6
[~2017-03-23 10:06] MED LIST changes: +BACTRIM DS TABL1 TAB PO; +HUMULIN R100 U/ML SC; +K-TAB10 MEQ PO; +METOLAZONE2.5 MG PO; +VIBRAMYCIN 100100 MG PO
[2017-03-23 10:37] LABS: BASOPHILS 0.2 % (0-2); EOSINOPHILS 2.1 % (0-7); HEMATOCRIT 31.9 % (42.0-54.0); HEMOGLOBIN 10.6 g/dL (13.5-17.5); LYMPHOCYTES 21.7 % (15-50); MCH 27.7 pg (26.0-34.0); MCHC 33.2 g/dL (31.0-37.0); MCV 83.5 fL (80.0-100.0); MEAN PLATELET VOLUME 9.7 fL (7.4-10.4); MONOCYTES 7.6 % (2-11); NEUTROPHILS 67.4 % (40-80); RBC 3.82 10x6/uL (4.20-6.10); RDW 16.2 % (11.5-14.5); WBC 8.4 10x3/uL (4.8-10.8)
[2017-03-23 10:43] LABS: PLATELET COUNT 198 10x3/uL (130-400)
[2017-03-23 11:16] LABS: ANION GAP 13.3 mmol/L (8-16); BILIRUBIN - TOTAL 0.45 mg/dL (0.2-1.3); CALCIUM 9.1 mg/dL (8.5-10.1); CARBON DIOXIDE 27.5 mmol/L (21.0-32.0); CREATININE - SERUM 3.8 mg/dL (0.6-1.3); PROTEIN - SERUM 6.6 g/dL (6.4-8.2)
[2017-03-23 11:19] LABS: POTASSIUM - SERUM 2.8 mmol/L (3.5-5.1)
[2017-03-23 13:03] LABS: APPEARANCE HAZY (CLEAR); BACTERIA FEW /hpf (NONE SEEN); BILIRUBIN NEGATIVE (NEGATIVE); COLOR YELLOW (YELLOW); EPITHELIAL CELLS OCC /hpf (0-5); GLUCOSE NEGATIVE (NEGATIVE); KETONE NEGATIVE (NEGATIVE); LEUKOCYTE ESTERASE NEGATIVE (NEGATIVE); NITRITE NEGATIVE (NEGATIVE); PROTEIN NEGATIVE (NEGATIVE); RED CELLS - URINE 25-50 /hpf (0-5); UROBILINOGEN NORMAL (NORMAL); WHITE CELLS - URINE RARE /hpf (0-5)
== END 2017-03-23 14:00 | disposition home or self-care (01) ==
LOC: D.ER 10:06
PROVIDERS: Emergency Medicine; Nurse Practitioner Family
DX: E87.6 Hypokalemia (principal); W19.XXXA Unspecified fall, initial encounter; Y93.89 Activity, other specified; Y92.89 Other specified places as the place of occurrence of the external cause; I12.9 Hypertensive chronic kidney disease with stage 1 through stage 4 chronic kidney disease, or unspecified chronic kidney disease; N18.9 Chronic kidney disease, unspecified; E11.9 Type 2 diabetes mellitus without complications; Z79.4 Long term (current) use of insulin

== ENCOUNTER → 2017-03-27 15:38 | Outpatient (CLI) | payer MEDICARE, BC ==
[2017-02-16 10:56] VITALS: BMI 31.6
[2017-03-27 16:37] LABS: ANION GAP 15.2 mmol/L (8-16); CALCIUM 8.4 mg/dL (8.5-10.1); CARBON DIOXIDE 28.2 mmol/L (21.0-32.0); CREATININE - SERUM 4.2 mg/dL (0.6-1.3); POTASSIUM - SERUM 3.4 mmol/L (3.5-5.1)
== END | disposition home or self-care (01) ==
LOC: D.LABREF 15:38
PROVIDERS: Family Medicine
DX: I73.00 Raynaud's syndrome without gangrene (principal); E11.22 Type 2 diabetes mellitus with diabetic chronic kidney disease; N18.4 Chronic kidney disease, stage 4 (severe); I50.9 Heart failure, unspecified

== ENCOUNTER 2017-03-28 11:29 | Outpatient (CLI) | payer MEDICARE, BC ==
[2017-02-16 10:56] VITALS: BMI 31.6
== END 2017-03-28 17:20 | disposition home or self-care (01) ==
LOC: D.OPS 11:29
DX: D69.6 Thrombocytopenia, unspecified (principal)

== ENCOUNTER → 2017-04-19 09:38 | Outpatient (CLI) | payer MEDICARE, BC ==
[2017-02-16 10:56] VITALS: BMI 31.6
== END | disposition home or self-care (01) ==
LOC: D.RT 09:30
DX: J44.9 Chronic obstructive pulmonary disease, unspecified (principal)

== ENCOUNTER → 2017-07-05 09:50 | Outpatient (CLI) | payer MEDICARE, BC ==
[2017-02-16 10:56] VITALS: BMI 31.6
== END | disposition home or self-care (01) ==
LOC: D.US 07-04 10:00
DX: N18.3 Chronic kidney disease, stage 3 (moderate) (principal)

== ENCOUNTER → 2017-08-22 12:29 | Outpatient (CLI) | payer MEDICARE, BC ==
[2017-02-16 10:56] VITALS: BMI 31.6
== END | disposition home or self-care (01) ==
LOC: D.RT 12:29
DX: R06.00 Dyspnea, unspecified (principal)

== ENCOUNTER → 2017-09-05 12:12 | Outpatient (CLI) | payer MEDICARE, BC ==
[2017-02-16 10:56] VITALS: BMI 31.6
== END | disposition home or self-care (01) ==
LOC: D.RAD 12:12
DX: R13.10 Dysphagia, unspecified (principal)

== ENCOUNTER → 2017-10-04 10:34 | Outpatient (CLI) | payer MEDICARE, BC ==
[2017-02-16 10:56] VITALS: BMI 31.6
[~2017-10-04 10:34] MED LIST changes: +CO Q-1030 MG PO; +COREG12.5 MG PO; +FERROUS SULFAT325 MG PO; +ISOSORBIDE MONO30 M1 PO; +MULTIPLE VITAMI1 TA1 PO; +OMNICEF300 MG PO; +TYLENOL W/CODEI1 TAB PO; +ZANTAC150 MG PO
== END | disposition home or self-care (01) ==
LOC: D.CT 09-06 11:00
DX: R93.8 Abnormal findings on diagnostic imaging of other specified body structures (principal)

== ENCOUNTER 2017-11-28 10:00 | Inpatient (IN) | payer MEDICARE, BC ==
[~2017-11-28] VITALS: Ht 193 cm; Wt 103.5 kg
--- NOTE | ~2017-11-28 | CN ---
PATIENT NAME:ANASTASIIA FONTENOT MEDICAL RECORD: [id number] : [birth year] LOCATION:D. D.2113 ADMIT DATE: 11/28/17 ACCOUNT: [id number] CONSULTING PHYSICIAN: NOHEMI MARTINEZ MD REFERRING PHYSICIAN: KAR ADRIAN DO DATE OF CONSULTATION: 11/28/2017 RENAL CONSULTATION REASON FOR CONSULTATION: CKD, syncope with shortness of breath. 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 REVIEW OF SYSTEMS: As above. No dysuria, pyuria, hematuria. No flank pain. No chest pain. All the rest review of systems are negative except for overall weakness and fatigue. PAST MEDICAL HISTORY: Neuropathy, cataracts, glasses, diabetes type 2, hypertension, coronary artery disease, CABG, stents, home O2, COPD, hernia repair times 3, CABG in 2014, BPH. ALLERGIES: PENICILLIN. HOME MEDICATIONS: Flomax, Combivent, aspirin, Tessalon Perles, Lasix, potassium, Pulmicort, Levemir sliding scale, Lipitor, Coreg, Proscar, Prozac, Neurontin, Avapro. FAMILY HISTORY: Cancer in his parents and siblings. SOCIAL HISTORY: No alcohol, tobacco, or illicit drugs at this time. He is retired. PHYSICAL EXAMINATION: VITAL SIGNS: Blood pressure 101/68, 99.1 temperature, 71 pulse. GENERAL: He is resting NAD this evening. HEENT: Clear. NECK: No JVD or thyromegaly. CHEST: Coarse. ABDOMEN: Nontender. Obese. Positive bowel sounds. No focal neurologic deficits. LABORATORY DATA: BUN is 29, creatinine 1.8. H&H is 9/29.7 with a white blood count of 9600. Troponin 0.018. CPK 293. Urinalysis with 1.01 specific gravity, 2+ protein, few bacteria, rare waxy casts. ASSESSMENT: 1. Chronic kidney disease stage III to IV, syncopal episode with shortness of breath, noted proteinuria in his urinalysis. 2. Diabetic nephropathy. 3. Chronic obstructive pulmonary disease. 4. Hypertension with borderline blood pressure. 5. Anemia. 6. BPH. We will have to clarify as Flomax or Proscar. CONSULT REPORT [id number] ANASTASIIA FONTENOT 7. Left and right knee pain as he had x-rays of both knees. PLAN: 1. We will follow with you. 2. Urine protein-creatinine ratio. 3. Serum protein electrophoresis. TRANSINT:[id number] Voice Confirmation ID: [id number] DOCUMENT ID: [id number] NOHEMI MARTINEZ MD at 2028 CC: [id number] DICTATION DATE: 11/29/17631 DATA BASE DESIGN ANALYST: 11/29/17 1219 ADM IN [place] [id number] [place] [id number]
--- NOTE | ~2017-11-28 | CN ---
PATIENT NAME:ANASTASIIA NIETO MEDICAL RECORD: [id number] : [birth year] LOCATION:D. D.2113 ADMIT DATE: 11/28/17 ACCOUNT: [id number] CONSULTING PHYSICIAN: GORGE GREGG MD REFERRING PHYSICIAN: KAR ADRIAN DO DATE OF CONSULTATION: 11/29/2017 Cardiology Consultation HISTORY OF PRESENT ILLNESS: Anastasiia Nieto is a 77-year-old gentleman who was admitted with history of coronary artery disease status post coronary bypass grafting, residual ischemic cardiomyopathy, EF 35% range, class II to class III symptomatology. Mitigating factor is pulmonary hypertension with some obstructive component. His has been in rehab here at [facility], has not been eating and drinking like previously. Had a syncopal episode after walking up a hill. No prodrome, was breathless before then, has again baseline probably high II low III symptomatology. PAST MEDICAL HISTORY: 1. History of hypertension. 2. Chronic renal insufficiency. 3. Coronary artery disease as described above. 4. Cardiomyopathy. 5. Obstructive pulmonary disease. 6. Pulmonary hypertension. ALLERGIES: PENICILLIN. MEDICATIONS: Typically include Flomax 0.4 every day, DuoNeb, carvedilol 25 b.i.d., Avapro 150 b.i.d., Prozac 10 every day, Neurontin 300 t.i.d., aspirin 81 every day, Lasix 80 every day, insulin per scale. SOCIAL HISTORY: , lives here in [place]. Nonsmoker and nondrinker. He is able to care of his ADLs. No set exercise program. REVIEW OF SYSTEMS: The patient reports easy bruising but reports no swollen glands. The patient reports no fever, no night sweats, no significant weight gain, no significant weight loss. No significant exercise tolerance. The patient reports no dry eyes, no irritation, no vision change. Patient reports no difficulty hearing and no ear pain. Patient reports no frequent nose bleeds or nose and sinus problems. Patient reports on arm pain on exertion. No shortness of breath while lying down. No history of heart murmur. Patient reports no cough, no wheezing or coughing up blood. Patient reports no abdominal pain, no vomiting. Normal appetite. No diarrhea and not vomiting blood. No nausea and no constipation. Patient reports no incontinence. No difficulty urinating. No hematuria. No increased frequency. Patient reports no muscle aches. No weakness, no arthralgias, no back pain. No swelling of the extremities. Patient reports no abnormal mole, no jaundice, no rashes. Reports no loss of consciousness. No weakness and no numbness. No seizures, dizziness, or headaches. The patient reports no depression, no sleep disturbance, feeling safe in a relationship and no alcohol abuse. Patient reports on fatigue. Reports no runny nose or sinus pressure. No itching, no hives, and no frequent sneezing. PHYSICAL EXAMINATION: CONSULT REPORT [id number] POANASTASIIA GENERAL: Pleasant gentleman in no acute distress, appears stated age. VITAL SIGNS: Blood pressure 134/57, pulse 75 and regular. HEENT: Normocephalic, atraumatic. NECK: No JVD or bruit. HEART: Regular. LUNGS: [place] clear. ABDOMEN: Soft, nontender. EXTREMITIES: Pulses 2+. No edema. NEUROLOGIC: Grossly intact. DIAGNOSTIC DATA: ECG shows asynchronous pacing. IMPRESSION: Syncope, suspect more exertion with volume depletion. We will check pacemaker to make sure no underlying pacemaker dysfunction and really nonfocal on exam. Agree with current workup, otherwise we will see him back again. Thank you for the consultation. TRANSINT:[id number] Voice Confirmation ID: [id number] DOCUMENT ID: [id number] GORGE GREGG MD at 1214 CC: [id number] DICTATION DATE: 11/29/17823 SKEIN DYER: 11/29/17 1235 DIS IN 11/30/17 [place] [id number] [place] [address]
--- NOTE | ~2017-11-28 | EC ---
PATIENT:ANASTASIIA FONTENOT DATE OF SERVICE: 11/28/17 SEX: M MEDICAL RECORD: [id number] DATE OF : [birth year] LOCATION:D.M2 D.211 AGE OF PATIENT: 77 ADMISSION DATE: 11/28/17 REFERRING PHYSICIAN: INTERPRETING PHYSICIAN: GORGE GREGG MD ECHOCARDIOGRAM REPORT ECHO CHARGES 4 ECHO COMPLETE Date: 11/29 CLINICAL DIAGNOSIS: CHF ECHOCARDIOGRAPHIC MEASUREMENTS (adult normal given) AC root (d.<3.7cm) 3.6 cm LV Septum d (<1.2 cm> 1.2 cm Valve Excursion 2.2 cm LV Septum (systole) 1.9 cm Left Atria (s.<4.0cm> 5.2 cm LVPW d(<1.2cm) 1.4 cm RV (d.<2.3cm) 3.9 cm LVPW (sytole) 2.3 cm LV diastole(<5.6CM) 6.1 cm MV E-F(>70mm/sec) cm LV systole 4.1 cm LVOT Diameter 2.1 cm MV exc.(>10mm) cm Est.ejection fraction (50-75%) % DOPPLER: LVIT cm/sec A 107 cm/sec E 89.0 cm/sec LA cm/sec RVSP 70.0 mmHg LVOT 92.0 cm/sec AOP1/2T m/s Asc. Ao 229 cm/sec RVOT 67.0 cm/sec RA cm/sec PA 110 cm/sec AV Gradient Peak 21.0 mmHg AV Mean 11.0 mmHg AV Area 1.3 cm MV Gradient Peak 6.5 mmHg MV Mean 2.6 mmHg MV Area cm COMMENTS: Lather Apprentice: 1 MAYCOL BEEOE Pyrometallurgical Engineer: 3 Dr. Chopra TAPE# PACS Pericardial Effusion N DATE OF SERVICE: Adequate 2D echo, color flow and spectral Doppler, and M-mode. Borderline LVH. LV internal dimensions normal. LV wall motion is globally hypokinetic. EF is mild to moderately reduced. Estimated EF 30% to 35%. Aortic valve sclerosis without stenosis by Doppler interrogation. Left atrium is dilated at 5.2 cm. Mitral valve shows no prolapse. Mitral valve has annular calcification and mild to moderate MR. Right-sided chambers upper limits of normal to mildly dilated. Moderate TR. Estimated RV systolic pressure is estimated greater than or equal to 70 mmHg. ECHOCARDIOGRAM REPORT [id number] ANASTASIIA FONTENOT TRANSINT:[id number] Voice Confirmation ID: [id number] DOCUMENT ID: [id number] GORGE GREGG MD at 1214 CC: [id number] DICTATION DATE: 11/30/17 1519 SUPPLIER QUALITY ENGINEERING MANAGER: 11/30/17 1716 DIS IN 11/30/17 [place] [id number] [place] [id number]
[~2017-11-28 10:00] MED LIST changes: -CO Q-1030 MG PO; -COREG12.5 MG PO; -FERROUS SULFAT325 MG PO; -ISOSORBIDE MONO30 M1 PO; -MULTIPLE VITAMI1 TA1 PO; -OMNICEF300 MG PO; -TYLENOL W/CODEI1 TAB PO; -ZANTAC150 MG PO
[2017-11-28 10:28] LABS: BASOPHILS 0.2 % (0-2); HEMATOCRIT 30.7 % (42.0-54.0); HEMOGLOBIN 9.2 g/dL (13.5-17.5); IMMATURE GRANULOCYTES 0.4 % (0-5); LYMPHOCYTES 18.7 % (15-50); MCH 25.8 pg (26.0-34.0); MCV 86.2 fL (80.0-100.0); MEAN PLATELET VOLUME 8.9 fL (7.4-10.4); MONOCYTES 8.2 % (2-11); NEUTROPHILS 69.5 % (40-80); PLATELET COUNT 292 10x3/uL (130-400); RBC 3.56 10x6/uL (4.20-6.10); RDW 17.3 % (11.5-14.5); WBC 9.3 10x3/uL (4.8-10.8)
[2017-11-28 10:43] LABS: ALBUMIN 2.8 g/dL (3.4-5.0); ANION GAP 12.4 mmol/L (8-16); BILIRUBIN - TOTAL 0.49 mg/dL (0.2-1.3); CALCIUM 9.4 mg/dL (8.5-10.1); CARBON DIOXIDE 27.3 mmol/L (21.0-32.0); POTASSIUM - SERUM 3.7 mmol/L (3.5-5.1); PROTEIN - SERUM 6.7 g/dL (6.4-8.2)
[2017-11-28 11:18] LABS: INR 1.08 (0.85-1.17); PROTIME 13.6 SECONDS (11.6-15.0)
[2017-11-28 11:25] LABS: MAGNESIUM - SERUM 2.2 mg/dL (1.8-2.4); TROPONIN-I 0.021 ng/mL (0.000-0.060)
[2017-11-28 12:11] LABS: APPEARANCE CLEAR (CLEAR); BACTERIA FEW /hpf (NONE SEEN); BILIRUBIN NEGATIVE (NEGATIVE); COLOR YELLOW (YELLOW); EPITHELIAL CELLS 0-5 /hpf (0-5); GLUCOSE NEGATIVE (NEGATIVE); HYALINE CAST 0-5 /lpf (NONE SEEN); KETONE NEGATIVE (NEGATIVE); MUCUS >1+ /lpf (NONE SEEN); NITRITE NEGATIVE (NEGATIVE); PROTEIN 2+ mg/dL (NEGATIVE); RED CELLS - URINE OCC /hpf (0-5); UROBILINOGEN NORMAL (NORMAL)
[2017-11-28 12:12] LABS: WAXY CAST RARE /lpf (NONE SEEN); WHITE CELLS - URINE RARE /hpf (0-5)
[2017-11-28 16:49] LABS: CKMB 1.1 U/L (0.0-3.6); CREATINE KINASE 59 UL (21-232); TROPONIN-I 0.025 ng/mL (0.000-0.060)
[2017-11-28 21:27] VITALS: BP 101/68
[2017-11-28 22:59] LABS: CREATINE KINASE 46 UL (21-232); TROPONIN-I 0.018 ng/mL (0.000-0.060)
[2017-11-28] MEDS ORDERED: MULTIPLE VITAMI1 TA1 PO (22:59)
[2017-11-28] MEDS ORDERED: CO Q-1030 MG PO (22:59)
[2017-11-28] MEDS ORDERED: FERROUS SULFAT325 MG PO (22:59)
[2017-11-28 23:04] LABS: CKMB 1.1 U/L (0.0-3.6)
[2017-11-29] VITALS (7 sets, daily range): BP systolic 101–149; BP diastolic 57–71; Ht 193 cm; Wt 103.5 kg
[2017-11-29 04:39] LABS: BASOPHILS 0.3 % (0-2); EOSINOPHILS 3.3 % (0-7); HEMATOCRIT 29.7 % (42.0-54.0); IMMATURE GRANULOCYTES 0.2 % (0-5); LYMPHOCYTES 18.2 % (15-50); MCH 25.9 pg (26.0-34.0); MCHC 30.3 g/dL (31.0-37.0); MCV 85.3 fL (80.0-100.0); MEAN PLATELET VOLUME 9.5 fL (7.4-10.4); MONOCYTES 9.8 % (2-11); NEUTROPHILS 68.2 % (40-80); PLATELET COUNT 270 10x3/uL (130-400); RBC 3.48 10x6/uL (4.20-6.10); RDW 17.3 % (11.5-14.5); WBC 9.6 10x3/uL (4.8-10.8)
[2017-11-29 05:10] LABS: CALC OSMOLALITY 291 mosm/kg (275-300); CALCIUM 9.2 mg/dL (8.5-10.1); CARBON DIOXIDE 27.1 mmol/L (21.0-32.0); CHLORIDE - SERUM 108 mmol/L (98-107); CKMB 0.9 U/L (0.0-3.6); CREATINE KINASE 42 UL (21-232); CREATININE - SERUM 1.8 mg/dL (0.6-1.3); GLUCOSE 88 mg/dL (74-106); POTASSIUM - SERUM 3.4 mmol/L (3.5-5.1); SODIUM 144 mmol/L (136-145); TROPONIN-I 0.027 ng/mL (0.000-0.060); UREA NITROGEN 29 mg/dL (7-18); eGFR NON AFRICAN AMERICAN 39 mL/min (90-120)
[2017-11-29] MEDS ORDERED: LIPITOR40 MG PO (09:31)
[2017-11-29] MEDS ORDERED: ISOSORBIDE MONO30 M1 PO (09:32)
[2017-11-29] MEDS ORDERED: ZANTAC150 MG PO (09:32)
[2017-11-30 00:22] VITALS: BP 119/44
[2017-11-30 04:00] VITALS: BP 153/67
[2017-11-30 05:30] LABS: BASOPHILS 0.2 % (0-2); EOSINOPHILS 5.1 % (0-7); HEMATOCRIT 28.2 % (42.0-54.0); HEMOGLOBIN 8.5 g/dL (13.5-17.5); IMMATURE GRANULOCYTES 0.3 % (0-5); LYMPHOCYTES 19.6 % (15-50); MCH 25.4 pg (26.0-34.0); MCHC 30.1 g/dL (31.0-37.0); MCV 84.4 fL (80.0-100.0); MEAN PLATELET VOLUME 9.8 fL (7.4-10.4); MONOCYTES 9.6 % (2-11); NEUTROPHILS 65.2 % (40-80); PLATELET COUNT 256 10x3/uL (130-400); RBC 3.34 10x6/uL (4.20-6.10); RDW 17.2 % (11.5-14.5)
[2017-11-30 05:58] LABS: ALBUMIN 2.4 g/dL (3.4-5.0); ANION GAP 12.4 mmol/L (8-16); BILIRUBIN - TOTAL 0.53 mg/dL (0.2-1.3); C-REACTIVE PROTEIN 10.1 mg/dL (0.0-0.9); CALCIUM 8.9 mg/dL (8.5-10.1); CARBON DIOXIDE 25.8 mmol/L (21.0-32.0); CREATININE - SERUM 1.9 mg/dL (0.6-1.3); PHOSPHOROUS 3.8 mg/dL (2.5-4.9); POTASSIUM - SERUM 3.2 mmol/L (3.5-5.1); PROTEIN - SERUM 6.1 g/dL (6.4-8.2)
[2017-11-30] MEDS ORDERED: OMNICEF300 MG PO (06:43)
[2017-11-30] MEDS ORDERED: COREG12.5 MG PO (06:43)
[2017-11-30 06:46] LABS: ERYTHROCYTE SEDIMENTATION RATE 58 mm/hr (0-20)
[2017-11-30] MEDS ORDERED: TYLENOL W/CODEI1 TAB PO (06:48)
[2017-11-30 08:13] VITALS: BP 153/75
[2017-11-30 12:51] VITALS: BP 137/60
[2017-11-30 17:07] VITALS: BP 163/82
== END 2017-11-30 19:39 | disposition home health service (06) | DRG 291 ==
LOC: D.ER 10:00 → D.EDHOLD 15:52 → D.M2 15:52
PROVIDERS: Family Medicine; Internal Medicine Nephrology; Nurse Practitioner Family
DX: I13.0 Hypertensive heart and chronic kidney disease with heart failure and stage 1 through stage 4 chronic kidney disease, or unspecified chronic kidney disease (principal); J18.9 Pneumonia, unspecified organism; I50.23 Acute on chronic systolic (congestive) heart failure; J96.11 Chronic respiratory failure with hypoxia; J44.0 Chronic obstructive pulmonary disease with (acute) lower respiratory infection; I95.1 Orthostatic hypotension; T46.2X5A Adverse effect of other antidysrhythmic drugs, initial encounter; J70.4 Drug-induced interstitial lung disorders, unspecified; E11.22 Type 2 diabetes mellitus with diabetic chronic kidney disease; N18.3 Chronic kidney disease, stage 3 (moderate); E11.21 Type 2 diabetes mellitus with diabetic nephropathy; E11.40 Type 2 diabetes mellitus with diabetic neuropathy, unspecified; M25.562 Pain in left knee; M25.561 Pain in right knee; E78.5 Hyperlipidemia, unspecified; D64.9 Anemia, unspecified; N40.0 Benign prostatic hyperplasia without lower urinary tract symptoms; I25.10 Atherosclerotic heart disease of native coronary artery without angina pectoris; I48.91 Unspecified atrial fibrillation; I25.5 Ischemic cardiomyopathy; J32.9 Chronic sinusitis, unspecified; I08.1 Rheumatic disorders of both mitral and tricuspid valves; I27.20 Pulmonary hypertension, unspecified; Z95.0 Presence of cardiac pacemaker; Z95.1 Presence of aortocoronary bypass graft

== ENCOUNTER → 2018-01-23 13:03 | Outpatient (CLI) | payer MEDICARE, BC ==
[2017-11-29 12:38] VITALS: BMI 28.0
[~2018-01-23 13:03] MED LIST changes: +CO Q-1030 MG PO; +COREG12.5 MG PO; +FERROUS SULFAT325 MG PO; +ISOSORBIDE MONO30 M1 PO; +MULTIPLE VITAMI1 TA1 PO; +OMNICEF300 MG PO; +TYLENOL W/CODEI1 TAB PO; +ZANTAC150 MG PO
== END | disposition home or self-care (01) ==
LOC: D.RAD 13:00
DX: J84.9 Interstitial pulmonary disease, unspecified (principal)

== ENCOUNTER → 2018-08-15 13:59 | Outpatient (CLI) | payer MEDICARE, BC ==
[2017-11-29 12:38] VITALS: BMI 28.0
== END | disposition home or self-care (01) ==
LOC: D.RT 13:59
DX: J44.9 Chronic obstructive pulmonary disease, unspecified (principal)

== ENCOUNTER 2019-01-08 22:36 | Inpatient (IN) | payer MEDICARE, BC ==
[~2019-01-08] VITALS: Ht 193 cm; Wt 91.7 kg
--- NOTE | ~2019-01-08 | HEMODYNAMI ---
PATIENT:ANASTASIIA FONTENOT MEDICAL RECORD: [id number] : 38 [facility] ADMISSION DATE: 01/09/19 Generatedon:01/18/201914:16 Patient name: ANASTASIIA FONTENOT Patient #: [id number] SSN: : 1940 Date of study: 01/18/2019 Page: Of Hemodynamic Procedure Report Patient Data Patient Demographics Procedure consent was obtained First Name: ANASTASIIA Gender: Male Last Name: PO : 1940 [facility] Initial: ARVIND Age: 78 year(s) Patient #: [id number] Race: Additional ID: [id number] Contact details [address]: [address] [place] [address] State: [place] City: [place] Zip code: [address] Past Medical History Allergies Allergen Reaction Date Comments Reported Penicillins 11/10/2014 Other allergy 01/18/2019 pcn Admission Admission Data Admission Date: 01/09/2019 Admission Time: 1:14 Arrival Date: 01/09/2019 Arrival Time: 1:14 Admit Source: Other Insurance Payor: Medicare Room #: D.2117 Height (in.): 75.98 BSA: 2.27 (m2) Height (cm.): 193 BMI: 25.77 (kg/m2) Weight (lbs.): 211.64 Weight (kg.): 96 Lab Results Lab Result Date: 01/16/2019 Lab Result Time: 0:00 Biochemistry Name Units Result Min Max BUN mg/dl 66 --(----)-* 7 18 Creatinine mg/dl 1.7 --(----)-* 0.6 1.3 CBC Name Units Result Min Max Hemoglobin g/dl 11.3 *-(----)-- 13.5 17.5 Procedure Procedure Types Cath Procedure Diagnostic Procedure Right Heart Right Heart Pharmacology Study Sedation Charges Moderate Sedation up to 15 minutes PCI Procedure AMI/SVG/BEHAVIORAL SCIENCES DEPARTMENT CHAIR PTCA or Stent SVG-BMS/JANI Initial Procedure Description Procedure Date Procedure Date: 01/18/2019 Procedure Start Time: 13:50 Procedure End Time: 14:12 Procedure Staff Name Function Dayton Ryan MD Performing Physician Romulo Sims RT Monitor Geena Rowland RT Scrub Lucho Mccrary RN Nurse Yaz Aguero RN Claims Attorney Procedure Data Cath Procedure Fluoroscopy Diagnostic fluoroscopy Total fluoroscopy Time: 4.1 time: 4.1 min min Diagnostic fluoroscopy Total fluoroscopy dose: 317 dose: 317 mGy mGy Contrast Material Contrast Material Type Amount (ml) Isovue 300 41 Entry Location Entry Primary Successful Side Size Upsize Upsize Entry Closure Kay ccessful Closure Location (Fr) 1 (Fr) 2 (Fr) Remarks Device Remarks Femoral Right 6 Fr Exoseal artery Short Femoral Left 7 Fr Manual vein Short Compression Estimated blood loss: 10 ml Diagnostic catheters Device Type Used For End Catheter Placement SWAN 7Fr Thermodilution Procedure cather (131F7P) DIAGNOSTIC 3DRC 5Fr Procedure catheter ([id number]) Procedure Complications No complications Procedure Medications Medication Administration Route Dosage 0.9% NaCl I.V. 100 ml/hr Oxygen etCO2 Nasal cannula 3 l/min Heparin Flush Bag added to field 2 bags (1000units/500ml NS) Lidocaine 2% added to field 20 Dobutamine 5 mcg/kg/min (500mg/250ml D5W) Versed I.V. 1 mg Fentanyl I.V. 50 mcg Fentanyl I.V. 25 mcg Adenosine IV 3mg/ml I.V. 50 mcg/kg/min Adenosine IV 3mg/ml I.V. 100 mcg/kg/min Adenosine IV 3mg/ml I.V. 150 mcg/kg/min Heparin Bolus I.V. 4000 units Adenosine IV 3mg/ml 150 mcg/kg/min Hemodynamics Rest BSA: 2.27 (m2) HGB: 11.3 (g/dl) O2 Consumption: Estimated: 261.11 (ml/min) O2 Co nsumption indexed: Estimated:115.03 (ml/min/m) Heart Rate: 72 (bpm) Pressure Samples Time Site Value (mmHg) Purpose Heart Use Rate(bpm) 13:52 PCW 14/(12) Snapshot 71 13:53 PA 65/24(35) Snapshot 70 13:55 PA 65/22(35) Snapshot 70 Snapshots Pre Cath Intra NCS Post Cath Vital Signs Time Heart Resp SPO2 etCO2 NIBP (mmHg) Rhythm Pain Sedation Rate (ipm) (%) (mmHg) Status Level (bpm) 13:26:40 70 15 96 0 178/114(163) NSR 0 (11) 10(A) , No pain 13:31:02 71 15 95 0 181/104(156) NSR 0 (11) 10(A) , No pain 13:35:24 70 14 95 0 172/108(153) NSR 0 (11) 10(A) , No pain 13:39:44 69 12 92 0 160/98(143) NSR 0 (11) 10(A) , No pain 13:44:00 69 11 92 0 162/90(134) NSR 0 (11) 10(A) , No pain 13:48:16 69 12 94 0 159/96(130) NSR 0 (11) 9(A) , No pain 13:52:30 70 15 93 0 160/96(133) NSR 0 (11) 9(A) , No pain 13:56:46 70 12 91 0 157/94(135) NSR 0 (11) 9(A) , No pain 14:01:00 69 12 93 0 162/98(144) NSR 0 (11) 9(A) , No pain 14:05:18 70 11 93 0 153/91(133) NSR 0 (11) 9(A) , No pain 14:09:30 69 12 94 0 153/100(136) NSR 0 (11) 9(A) , No pain Medications Time Medication Route Dose Verified Delivered Reason Notes Effectiveness by by 13:24:56 0.9% NaCl I.V. 100 ml/hr Lucho Lucho Per physic dion Hermann Mccrary RN RN 13:25:04 Oxygen etCO2 Nasal 3 l/min Lucho Lucho for low 02 sats cannula Hermann Mccrary RN RN 13:25:15 Heparin Flush added to 2 bags Lucho Lucho used for Bag field Lorigan Lorigan procedure (1000units/500ml RN RN NS) 13:25:24 Lidocaine 2% added to 20ml vial Lucho Lucho for local field Lorigan Lorigan anesthetic RN RN 13:26:20 Dobutamine I.V. 5 Lucho Lucho Per physic dion (500mg/250ml drip(infusing mcg/kg/min Lorigan Lorigan D5W) upon arrival) RN RN 13:46:40 Versed I.V. 1 mg Lucho Lucho for sedati on Hermann Mccrary RN RN 13:46:48 Fentanyl I.V. 50 mcg Lucho Lucho for sedati on Hermann Mccrary RN RN 13:48:15 Fentanyl I.V. 25 mcg Lucho Lucho for sedati on Hermann Mccrary RN RN 13:53:42 Adenosine IV I.V. 50 Lucho Lucho for 3mg/ml mcg/kg/min Lorigan Lorigan vasodilation RN RN 13:56:24 Adenosine IV I.V. 100 Lucho Lucho for 3mg/ml mcg/kg/min Lorigan Lorigan vasodilation RN RN 13:58:32 Adenosine IV I.V. 150 Lucho Lucho for 3mg/ml mcg/kg/min Lorigan Lorigan vasodilation RN RN 14:00:02 Adenosine IV I.V.turned 150 Lucho Lucho Per physic dion 3mg/ml off mcg/kg/min Hermann Mccrary RN RN 14:02:00 Heparin Bolus I.V. 4000 units Lucho Lucho for Lorigan Lorsamm anticoagulation RN real property evaluator Log Time Note 13:00:22 Yaz Aguero RN sent for patient. Start room use. 13:15:06 Patient Height : 75.98 inches 13:15:06 Patient Weight : 211.64 lbs 13:15:34 Informed consent obtained and on chart 13:15:39 Admit Source: Other 13:16:15 Diagnostic Cath status Elective 13:16:54 Time tracking: Regular hours (M-F 7:00 - 5:00) 13:17:00 Patient received from Med II to CCL 2 Alert and oriented. Tansferred to table in Supine position. 13:17:00 Plan of Care:Hemodynamics will remain stable., Cardiac rhythm will remain stable., Comfort level will be maintained., Respiratory function will remain adequate., Patient/ family verbilizes understanding of procedure., Procedure tolerated without complication., Recovers from procedure without complications.. 13:17:01 Warm blankets applied, and chris hugger turned on for patient comfort. 13:17:02 Correct patient and procedure confirmed by team. 13:17:26 H&P Date Dictated: 01/16/2019 Within 30 days and on chart.. 13:17:27 Pre-procedure instructions explained to patient. 13:17:28 Pre-op teaching completed and patient verbalized understanding. 13:17:30 Family in patients room. 13:17:32 Patient NPO since Midnight. 13:24:56 0.9% NaCl 100 ml/hr I.V. was administered by Lucho Mccrary RN; Per physician; 13:25:04 Oxygen 3 l/min etCO2 Nasal cannula was administered by Lucho Mccrary RN; for low 02 sats; 13:25:15 Heparin Flush Bag (1000units/500ml NS) 2 bags added to field was administered by Lucho Mccrary RN; used for procedure; 13:25:24 Lidocaine 2% 20ml vial added to field was administered by Lucho Mccrary RN; for local anesthetic; 13:25:30 Vital chart was started 13:26:20 Dobutamine (500mg/250ml D5W) 5 mcg/kg/min I.V. drip(infusing upon arrival) was administered by Lucho Mccrary RN; Per physician; 13:27:33 Patient allergic to Other allergypcn 13:27:37 Is the patient allergic to Iodine/contrast media? No. 13:27:38 Is patient on blood thinner?Yes 13:27:41 ACC The patient was administered the following blood thiners within the last 24 hours: ACCPlavix 13:29:31 Patient diabetic? No. 13:29:33 Previous problem with sedation/anesthesia? No ? 13:29:34 Snore? Yes 13:29:35 Sleep apnea? No 13:29:36 Deviated septum? No 13:29:37 Opens mouth fully? Yes 13:29:37 Sticks out tongue? Yes 13:30:05 Airway obstruction? Yes asthma/COPD 13:30:08 Dentures? No ? 13:30:14 Pre procedure: left dorsailis pedis pulse 1+ Palpable, but thready & weak; easily obliterated 13:30:17 Patient pain scale 0/10 ?. 13:30:26 IV patent on arrival in right forearm with 0.9% NaCl at KVO. 13:30:43 Lab results completed and on chart. 13:30:45 Left groin area was prepped with chlora-prep and draped in sterile fashion 13:30:46 Alarms reviewed by Brooke. N. 13:30:47 Sharps counted by scrub and verified by R.N. 13:30:51 ACIST Syringe (07123) opened to sterile field. 13:30:51 Bag Decanter (2002S) opened to sterile field. 13:30:54 ACIST Hand Control (99501) opened to sterile field. 13:30:54 ACIST Manifold (22808) opened to sterile field. 13:30:57 Tegaderm 4 x 4 (1626W) opened to sterile field. 13:31:01 EMERALD Guide Wire (502-933) opened to sterile field. 13:31:17 SHEATH 7FR Saugerties (KUO482) opened to sterile field. 13:31:18 SHEATH 6FR Saugerties (LHO005) opened to sterile field. 13:31:28 INFLATOR Merit BasixCompak (MG3179) opened to sterile field. 13:31:33 Baseline sample Acquired. 13:31:37 Rhythm: paced 13:31:39 Full Disclosure recording started 13:34:34 Maximum allowable Isovue 300 dose 273ml. Physician notified. (300ml for normal creatinines. For patients with creatinine of 1.7 or higher multiply weight(kg) x 5 divided by creatinine.) 13:38:36 Zero performed for pressure channel P1 13:45:43 Physician arrived 13:45:43 --------ALL STOP TIME OUT------ 13:45:44 Final Timeout: patient, procedure, and site verified with staff and physician. All members of the team are in agreement. 13:45:46 Left groin site verified by team. 13:45:52 Fire Safety Assessment: A--An alcohol-based skin anteseptic being used preoperatively., C--Open oxygen or nitrous oxide is being used., D--An ESU, laser, or fiber-optic light is being used. 13:45:56 Maximum allowable Isovue 300 dose 273ml. Physician notified. (300ml for normal creatinines. For patients with creatinine of 1.7 or higher multiply weight(kg) x 5 divided by creatinine.) 13:46:09 Physical assessment completed. ASA score P 3 - A patient with severe systemic disease as per Dayton Ryan MD. 13:46:12 Sedation plan: IV Moderate Sedation Medication:Versed, Fentanyl 13:46:40 Versed 1 mg I.V. was administered by Lucho Mccrary RN; for sedation; 13:46:48 Fentanyl 50 mcg I.V. was administered by Lucho Mccrary RN; for sedation; 13:48:15 Fentanyl 25 mcg I.V. was administered by Lucho Mccrary RN; for sedation; 13:49:29 Procedure started. 13:50:29 Local anesthetic to left femerol artery with Lidocaine 2% by Dayton Ryan MD.INITIAL ACCESS ONLY 13:51:06 A 6 Fr Short sheath was inserted into the Right Femoral artery 13:51:19 A 7 Fr Short sheath was inserted into the Left Femoral vein 13:51:28 A SWAN 7Fr Thermodilution cather ([id number]) was advanced over the wire and used for Procedure. 13:52:04 Right heart pressures obtained. 13:53:42 Adenosine IV 3mg/ml 50 mcg/kg/min I.V. was administered by Lucho Mccrary RN; for vasodilation; 13:55:48 Timer 1 started at 1:53 PM, stopped at 1:55 PM, duration 00:02:02 sec. 13:56:24 Adenosine IV 3mg/ml 100 mcg/kg/min I.V. was administered by Lucho Mccrary RN; for vasodilation; 13:58:17 Timer 1 started at 1:56 PM, stopped at 1:58 PM, duration 00:02:13 sec. 13:58:32 Adenosine IV 3mg/ml 150 mcg/kg/min I.V. was administered by Lucho Mccrary RN; for vasodilation; 13:58:49 A DIAGNOSTIC 3DRC 5Fr catheter ([id number]) was advanced over the wire and used for Procedure. 13:59:29 Catheter exchanged over wire. 13:59:37 GUIDE 6FR GERMAN 90 catheter ([id number]) opened to sterile field. 13:59:47 6 Fr GERMAN 90 cm guide catheter was inserted over the wire 13:59:51 Timer 1 started at 1:58 PM, stopped at 1:59 PM, duration 00:01:31 sec. 13:59:59 Seanor-Kehinde removed. 14:00:02 Adenosine IV 3mg/ml 150 mcg/kg/min I.V.turned off was administered by Lucho Mccrary RN; Per physician; 14:00:41 whisper wire advanced. 14:02:00 Heparin Bolus 4000 units I.V. was administered by Lucho Mccrary RN; for anticoagulation; 14:02:35 Wire advanced across lesion. 14:02:52 Inflate balloon Inflation number: 1 A EUPHORA 2.0 x 20 Balloon ([id number]) was prepped and advanced across the BOSE -> Dist LAD 90, then inflated to 15 MATTHEW for 0:10 (min:sec) 0. 14:03:01 Inflation number: 2 The EUPHORA 2.0 x 20 Balloon ([id number]) was reinflated across the BOSE -> Dist LAD 90, to 15 MATTHEW for 0:10 (min:sec) 0. 14:03:20 Balloon removed over the wire. 14:05:08 Place stent Inflation Number: 3 A DESTINEE RX 2.25 x 26 stent ([id number]) was prepped and advanced across the BOSE -> Dist LAD 90. The stent was deployed at 13 MATTHEW for 0:10 (min:sec) 0. 14:05:11 Stent catheter was removed intact over wire. 14:05:11 Wire removed. 14:05:12 Guide catheter removed. 14:05:26 EXOSEAL 6Fr (EX600) opened to sterile field. 14:08:27 Sheath removed intact; hemostasis achieved with Exoseal to the Right Femoral artery. 14:08:29 Procedure ended.(Physican Out) 14:08:44 Sheath removed intact; hemostasis achieved with Manual Compression to the Left Femoral vein. 14:09:13 Fluoroscopy time 04.10 minutes. 14:09:20 Flurop Dose total: 317 14:09:20 Fluoroscopy dose: 317 mGy 14:09:54 Contrast amount:Isovue 300 41ml. 14:09:57 Sharps counted by scrub and verified by R.N. 14:10:00 Insertion/operative site no bleeding no hematoma. 14:10:03 Post-op/insertion site Left Femoral artery dressed using a 4 x 4 and Tegaderm. 14:10:20 Post left femoral vein:stable, soft, clean and dry 14:10:24 Post-op/insertion site Left Femoral vein dressed using a 4 x 4 and Tegaderm. 14:10:30 Post left femoral vein:stable, soft, clean and dry 14:10:31 Post Procedure Pulses reassessed and unchanged 14:10:33 Post-procedure physical assessment completed. ASA score P 3 - A patient with severe systemic disease as per Dayton Ryan MD. 14:10:36 Post procedure rhythm: unchanged. 14:10:43 Estimated blood loss: 10 ml 14:10:44 Post procedure instruction explained to patient.Patient verbalizes understanding. 14:10:45 Patient needs reinforcement of post procedure teaching. 14:11:19 Procedure type changed to Cath procedure, Diagnostic procedure, Right Heart, Right Heart Pharmacology Study, Sedation Charges, Moderate Sedation up to 15 minutes, PCI procedure, AMI/SVG/BEHAVIORAL SCIENCES DEPARTMENT CHAIR PTCA or Stent, SVG-BMS/JANI Initial 14:12:41 Procedure and supply charges have been captured, reviewed, submitted and are correct. 14:12:44 Procedure Complication : No complications 14:12:46 Vital chart was stopped 14:12:46 See physician's report for complete and final results. 14:12:49 Report given to PCU. 14:12:51 Patient transfered to PCU with Stretcher. 14:12:53 Procedure ended. 14:12:53 Full Disclosure recording stopped 14:12:57 End room use (Document Last) Intervention Summary Intervention Notes Time ActionType Lesion and Equipment Used Action# Pressure Duration Attributes 14:02:52 Inflate BOSE -> EUPHORA 2.0 x 1 15 00:10 balloon Dist LAD 20 Balloon ([id number]) 14:03:01 Reinflate BOSE -> EUPHORA 2.0 x 2 15 00:10 balloon Dist LAD 20 Balloon ([id number]) 14:05:08 Place stent BOSE -> DESTINEE RX 2.25 x 3 13 00:10 Dist LAD 26 stent ([id number]) Device Usage Item Name Manufacture Quantity Catalog Hospital Part Current [facility] Lot# / Number Charge Number Stock Stock Serial# Code ACIST Syringe Acist 1 72953 691689 788524 442167 20 (68212) [employer] Bag Decanter Microtek 1 602436 95092 306625 5 () Medical Inc. ACIST Hand Acist 1 78163 736993 201176 763937 5 Control Medical (19469) Tang [employer] Inc ACIST Manifold Acist 1 16639 638199 040037 788226 5 (30440) Medical Systems Inc Tegaderm 4 x 4 3M 1 1626W 278021 165995 169652 5 (1626W) EMERALD Guide Cardinal 1 502-455 350473 328623 494277 5 Wire (502-455) Health SHEATH 7FR Terumo 1 GBM941 300818 455279 718942 5 Saugerties (ERO501) SHEATH 6FR Terumo 1 LSG826 264189 005620 162025 40 [place]augerties (DJT433) INFLATOR Merit Merit 1 TO1808 150442 567833 828178 15 Cava GrillIntermountain Medical CenterTu Closet Mi Closet Medical (FJ8194) SWAN 7Fr Dominguez 1 131F7P 496788 20978 019772 3 Thermodilution Lifesciences cather (131F7P) DIAGNOSTIC Cardinal 1 [id number] 052253 998180 563568 9 3DRC 5Fr Health catheter ([id number]) GUIDE 6FR GERMAN Medtronic 1 [id number] 908106 94673 005089 1 90 catheter ([id number]) EUPHORA 2.0 x Medtronic 1 [id number] 990669 972214 830711 5 [id number] 20 Balloon ([id number]) DESTINEE RX 2.25 x Medtronic 1 [id number] 885954 3802484 744752 5 [id number] 26 stent ([id number]) EXOSEAL 6Fr Cardinal 1 EX600 675527 784012 092484 10 (EX600) Health Signature Audit [place] Stage Time Signature Unsigned Intra-Procedure 01/18/2019 Romulo Sims 2:16:33 PM RT(R) Signatures Monitor : Romulo Sims RT Signature : Date : Time : [facility] [address] [place] [address]
--- NOTE | ~2019-01-08 | HEMODYNAMI ---
PATIENT:ANASTASIIA FONTENOT MEDICAL RECORD: [id number] : 38 [facility] DATE: 01/09/19 Generatedon:01/16/201913:11 Patient name: ANASTASIIA FONTENOT Patient #: [id number] SSN: : 1940 Date of study: 01/16/2019 Page: Of Hemodynamic Procedure Report Patient Data Patient Demographics Procedure consent was obtained First Name: ANASTASIIA Gender: Male Last Name: PO : 1940 [facility] Initial: ARVIND Age: 78 year(s) Patient #: [id number] Race: Additional ID: [id number] Contact details [address]: [address] [place] [address] State: [place] City: [place] Zip code: [address] Past Medical History Allergies Allergen Reaction Date Comments Reported Penicillins 11/10/2014 Admission Admission Data Admission Date: 01/09/2019 Admission Time: 1:14 Arrival Date: 01/09/2019 Arrival Time: 1:14 Admit Source: Other Insurance Payor: Medicare Room #: D.2117 Height (in.): 75.98 BSA: 2.27 (m2) Height (cm.): 193 BMI: 25.77 (kg/m2) Weight (lbs.): 211.64 Weight (kg.): 96 Lab Results Lab Result Date: 01/16/2019 Lab Result Time: 0:00 Biochemistry Name Units Result Min Max BUN mg/dl 66 --(----)-* 7 18 Creatinine mg/dl 1.7 --(----)-* 0.6 1.3 CBC Name Units Result Min Max Hemoglobin g/dl 11.3 *-(----)-- 13.5 17.5 Procedure Procedure Types Cath Procedure Diagnostic Procedure LHC LHC w/Coronaries w/Grafts Procedure Description Procedure Date Procedure Date: 01/16/2019 Procedure Start Time: 12:44 Procedure End Time: 13:05 Procedure Staff Name Function Dayton Ryan MD Performing Physician Yolis BROWN Monitor Geena Janett RT Scrub Eve Machuca RN Nurse Procedure Data Cath Procedure Fluoroscopy Diagnostic fluoroscopy Total fluoroscopy Time: 7.4 time: 7.4 min min Diagnostic fluoroscopy Total fluoroscopy dose: dose: 1419 mGy 1419 mGy Contrast Material Contrast Material Type Amount (ml) Isovue 370 124 Entry Location Entry Primary Successful Side Size Upsize Upsize Entry Closure Succes sful Closure Location (Fr) 1 (Fr) 2 (Fr) Remarks Device Remarks Femoral Right 5 Fr 6 Fr Exoseal artery Short Estimated blood loss: 5 ml Diagnostic catheters Device Type Used For End Catheter Placement MULTIPACK Pigtail 5 Fr Multi-vessel catheter Angiography MULTIPACK JL 4.0 5Fr Left Coronary catheter Angiography MULTIPACK 3DRC 5Fr Multi-vessel catheter Angiography DIAGNOSTIC AR2 MOD 5 Fr Multi-vessel catheter ([id number]) Angiography Procedure Complications No complications Procedure Medications Medication Administration Route Dosage Versed I.V. 2 mg Fentanyl I.V. 50 mcg 0.9% NaCl I.V. 100 ml/hr Oxygen etCO2 Nasal cannula 2 l/min Lidocaine 2% added to field 20 Heparin Flush Bag added to field 2 bags (1000units/500ml NS) Fentanyl I.V. 50 mcg Heparin Bolus I.V. 4000 units Integrilin (Bolus I.V. 8.5 ml 2mg/ml) Plavix P.O. 600 mg Hemodynamics Rest BSA: 2.27 (m2) HGB: 11.3 (g/dl) O2 Consumption: Estimated: 263.52 (ml/min) O2 Co nsumption indexed: Estimated:116.09 (ml/min/m) Heart Rate: 75 (bpm) Pressure Samples Time Site Value (mmHg) Purpose Heart Use Rate(bpm) 12:46 LV 221/3,10 Snapshot 25 Snapshots Pre Cath Intra NCS Post Cath Vital Signs Time Heart Resp SPO2 etCO2 NIBP (mmHg) Rhythm Pain Status Sedation Rate (ipm) (%) (mmHg) Level (bpm) 12:26:38 75 15 97 0 175/110(149) NSR 0 (11) , No 10(A) pain 12:31:03 73 13 98 0 164/106(137) NSR 0 (11) , No 10(A) pain 12:35:27 71 14 98 0 176/105(151) NSR 0 (11) , No 9(A) pain 12:39:55 69 15 97 0 168/105(150) NSR 0 (11) , No 9(A) pain 12:44:21 69 19 98 0 161/103(142) NSR 5 (11) , 10(A) Very distressing 12:48:46 69 16 97 0 171/104(146) NSR 0 (11) , No 9(A) pain 12:53:10 69 14 97 0 164/105(145) NSR 0 (11) , No 9(A) pain 12:57:36 69 12 95 0 159/104(136) NSR 0 (11) , No 9(A) pain 13:02:00 69 10 97 0 164/107(144) NSR 0 (11) , No 10(A) pain Medications Time Medication Route Dose Verified Delivered Reason Notes Effectiveness by by 12:32:12 Versed I.V. 2 mg Dayton Eve for sedation Shelby Machuca RN 12:32:18 Fentanyl I.V. 50 Dayton Eve for sedation mcg Shelby Machuca RN 12:32:33 0.9% NaCl I.V. 100 Dayton Eve used for ml/hr Shelby Machuca hourly sales staff 12:32:41 Oxygen etCO2 2 Dayton Eve used for Nasal l/min Shelby Machuca procedure cannula RN 12:32:47 Lidocaine 2% added 20ml Dayton Dayton for local to vial Shelby Ryan MD anesthetic field 12:32:52 Heparin Flush added 2 Dayton Dayton used for Bag to bags Shelby Ryan MD procedure (1000units/500ml field NS) 12:45:43 Fentanyl I.V. 50 Dayton Eve for sedation mcg Shelby Machuca RN 12:53:35 Heparin Bolus I.V. 4000 Dayton Eve for verif ied units Shelby Machuca anticoagulation with Dr. HUE Ryan 12:53:49 Integrilin I.V. 8.5 Dayton Eve for waste d (Bolus 2mg/ml) ml Shelby Machuca antiplatelet 1.5mL RN therapy 12:54:10 Plavix P.O. 600 Dayton Soteloyla for mg Shelby Machuca antiplatelet RN therapy Procedure Log Time Note 12:00:12 Eve Machuca RN sent for patient. Start room use. 12:11:29 Signed procedure consent form obtained from patient. 12:11:31 Diagnostic Cath status Urgent 12:11:32 Time tracking: Regular hours (M-F 7:00 - 5:00) 12:11:34 Plan of Care:Hemodynamics will remain stable., Cardiac rhythm will remain stable., Comfort level will be maintained., Respiratory function will remain adequate., Patient/ family verbilizes understanding of procedure., Procedure tolerated without complication., Recovers from procedure without complications.. 12:17:51 Procedure type changed to Cath procedure, Diagnostic procedure, LHC, LHC w/Coronaries w/Grafts 12:18:14 Patient received from Med II to CCL 1 Alert and oriented. Tansferred to table in Supine position. 12:18:15 Warm blankets applied, and chris hugger turned on for patient comfort. 12:18:16 Correct patient and procedure confirmed by team. 12:18:16 ECG and BP/O2 sat monitors applied to patient. 12:25:20 Vital chart was started 12:27:45 Baseline sample Acquired. 12:27:58 Rhythm: paced 12:28:01 Full Disclosure recording started 12:28:09 H&P Date Dictated: 01/16/2019 New H&P dictated by physician.. 12:28:11 Pre-procedure instructions explained to patient. 12:28:11 Pre-op teaching completed and patient verbalized understanding. 12:28:12 Family in waiting room. 12:28:13 Patient NPO since Midnight. 12:28:16 Is the patient allergic to Iodine/contrast media? No. 12:28:17 Was the patient premedicated? No 12:28:21 Is patient on blood thinner?No 12:28:22 Patient diabetic? Yes. 12:28:23 If diabetic: On Metformin? No 12:28:26 Previous problem with sedation/anesthesia? No ? 12:28:28 Snore? Yes 12:28:31 Sleep apnea? No 12:28:32 Deviated septum? No 12:28:33 Opens mouth fully? Yes 12:28:35 Sticks out tongue? Yes 12:28:45 Airway obstruction? Yes asthma, copd 12:28:58 Dentures? No ? 12:29:04 Pre procedure: right dorsailis pedis pulse 1+ Palpable, but thready & weak; easily obliterated 12:29:06 Pre procedure: left dorsailis pedis pulse 1+ Palpable, but thready & weak; easily obliterated 12::08 Patient pain scale 0/10 ?. 12:: IV patent on arrival in left forearm with 0.9% NaCl at [facility]. 12:: Lab results completed and on chart. 12:: Right groin area was prepped with chlora-prep and draped in sterile fashion : Alarms reviewed by R. N. : Sharps counted by scrub and verified by R.N. 12::33 Physician arrived 12:: --------ALL STOP TIME OUT------ 12:: Final Timeout: patient, procedure, and site verified with staff and physician. All members of the team are in agreement. 12::36 Right groin site verified by team. 12::39 Maximum allowable Isovue 370 dose 300ml. Physician notified. (300ml for normal creatinines. For patients with creatinine of 1.7 or higher multiply weight(kg) x 5 divided by creatinine.) 12:31:44 Fire Safety Assessment: A--An alcohol-based skin anteseptic being used preoperatively., C--Open oxygen or nitrous oxide is being used., D--An ESU, laser, or fiber-optic light is being used. 12:31:47 Physical assessment completed. ASA score P 2 - A patient with mild systemic disease as per Dayton Ryan MD. 12:31:50 Sedation plan: IV Moderate Sedation Medication:Versed, Fentanyl 12:32:12 Versed 2 mg I.V. was administered by Eve Machuca RN; for sedation; :16 Lab Result : Hemoglobin 11.3 g/dl 12::16 Lab Result : Creatinine 1.7 mg/dl 12::16 Lab Result : BUN 66 mg/dl 12::18 Fentanyl 50 mcg I.V. was administered by Eve Machuca RN; for sedation; :: 0.9% NaCl 100 ml/hr I.V. was administered by Eve Machuca RN; used for procedure; ::34 Admit Source: Other 12:: Oxygen 2 l/min etCO2 Nasal cannula was administered by Eve Machuca RN; used for procedure; 12:32:47 Lidocaine 2% 20ml vial added to field was administered by Dayton Ryan MD; for local anesthetic; 12:32:50 Patient Height : 75.98 inches 12:32:52 Heparin Flush Bag (1000units/500ml NS) 2 bags added to field was administered by Dayton Ryan MD; used for procedure; 12:32:55 Patient Weight : 211.64 lbs 12:33:38 Insurance Payor : Medicare 12:33:44 Arrival Date: 01/09/2019 1:14:00 AM 12:33:55 Use device set Femoral Dx 12:33:57 ACIST Syringe (44052) opened to sterile field. 12:33:57 Bag Decanter (2002S) opened to sterile field. 12:33:57 Medline Cath Pack ([id number]) opened to sterile field. 12:33:58 DIAGNOSTIC WIRE .035 260cm J wire (753262) opened to sterile field. 12:33:59 ACIST Hand Control (75476) opened to sterile field. 12:34:00 ACIST Manifold (61891) opened to sterile field. 12:34:00 DIAGNOSTIC Multipack 5Fr catheter set ([id number]) opened to sterile field. 12:34:00 Tegaderm 4 x 4 (1626W) opened to sterile field. 12:34:02 EMERALD Guide Wire (118-277) opened to sterile field. 12:34:05 SHEATH 5FR Independence (DBL942) opened to sterile field. 12:44:13 Procedure started. 12:44:17 Local anesthetic to right femoral artery with Lidocaine 2% by Dayton Ryan MD.INITIAL ACCESS ONLY 12:44:25 A 5 Fr sheath was inserted into the Right Femoral artery 12:45:35 A MULTIPACK Pigtail 5 Fr catheter was advanced over the wire and used for Multi-vessel Angiography. 12:45:43 Fentanyl 50 mcg I.V. was administered by Eve Machuca RN; for sedation; 12:46:11 LV hemodynamics recorded. 12:46:12 LV gram done using VALDES 12:46:15 Injector settings: Ml/sec: 3, Volume: 6, 12:46:22 EF : 20 % 12:46:28 Pt arrived to on HFNC, DAMEON EtCO2 d/t HFNC in place 12:47:22 Catheter removed. 12:47:27 A MULTIPACK JL 4.0 5Fr catheter was advanced over the wire and used for Left Coronary Angiography. 12:47:30 LCA angiography performed. 12:47:33 Injector settings: Ml/sec: 3, Volume: 6, 12:48:01 Catheter removed. 12:48:07 A MULTIPACK 3DRC 5Fr catheter was advanced over the wire and used for Multi-vessel Angiography. 12:48:18 BOSE angiography performed. 12:49:03 RCA angiography performed. 12:49:07 Injector settings: Ml/sec: 3, Volume: 6, 12:50:01 Catheter removed. 12:50:20 A DIAGNOSTIC AR2 MOD 5 Fr catheter ([id number]) was advanced over the wire and used for Multi-vessel Angiography. 12:50:32 SVG to Diag angiography performed. 12:50:41 SVG to Circ angiography performed. 12:50:49 Catheter removed. 12:51:01 Proceeding to intervention. 12:51:20 SHEATH 6FR Independence (YHA456) opened to sterile field. 12:51:21 INFLATOR Merit BasixCompak (CJ9277) opened to sterile field. 12:52:24 Sheath upsized to a 6 Fr Short. 12:53:35 Heparin Bolus 4000 units I.V. was administered by Eve Machuca RN; for anticoagulation; verified with Dr. Ryan 12:53:43 GUIDE 6FR XB 3.5 SH catheter ([id number]) opened to sterile field. 12:53:44 GUIDE 6FR XBLAD 4.0 SH catheter ([id number]) opened to sterile field. 12:53:49 Integrilin (Bolus 2mg/ml) 8.5 ml I.V. was administered by Eve Machuca RN; for antiplatelet therapy; wasted 1.5mL 12:53:56 6 Fr xb 3.5 sh guide catheter was inserted over the wire 12:54:00 Guide Catheter removed. unable to cannulate vessel. 12:54:10 Plavix 600 mg P.O. was administered by Eve Machuca RN; for antiplatelet therapy; 12:54:12 6 Fr xb 4 sh guide catheter was inserted over the wire 12:54:54 CHOICE PT Extra Support 182cm wire ([id number]) opened to sterile field. 12:55:11 choice pt wire advanced. 12:55:42 Wire advanced across lesion. 12:56:53 Inflate balloon Inflation number: 1 A EUPHORA 3.0 x 20 Balloon ([id number]) was prepped and advanced across the Prox CX 95, then inflated to 17 MATTHEW for 0:10 (min:sec) . 12:57:01 Inflation number: 2 The EUPHORA 3.0 x 20 Balloon ([id number]) was reinflated across the Prox CX , to 17 MATTHEW for 0:10 (min:sec) . 12:57:13 Inflation number: 1 The EUPHORA 3.0 x 20 Balloon ([id number]) was reinflated across the LMCA , to 17 MATTHEW for 0:10 (min:sec) . 12:58:12 Balloon removed over the wire. 12:58:51 Place stent Inflation Number: 3 A DESTINEE RX 3.0 x 15 stent ([id number]) was prepped and advanced across the Prox CX 95. The stent was deployed at 17 MATTHEW for 0:10 (min:sec) . 12:59:12 Inflation number: 4 The stent balloon was then re-inflated across the Prox CX to 23 MATTHEW for 0:10 (min:sec) . 13:00:08 Stent catheter was removed intact over wire. 13:00:44 Place stent Inflation Number: 2 A DESTINEE RX 3.0 x 15 stent ([id number]) was prepped and advanced across the LMCA 95. The stent was deployed at 23 MATTHEW for 0:10 (min:sec) . 13:01:03 Inflation number: 3 The stent balloon was then re-inflated across the LMCA to 23 MATTHEW for 0:10 (min:sec) . 13:01:26 Inflation number: 4 The stent balloon was then re-inflated across the LMCA to 25 MATTHEW for 0:10 (min:sec) . 13:02:14 Stent catheter was removed intact over wire. 13:02:14 Wire removed. 13:02:15 Guide catheter removed. 13:02:24 EXOSEAL 6Fr (EX600) opened to sterile field. 13:02:36 Sheath removed intact; hemostasis achieved with Exoseal to the Right Femoral artery. 13:03:08 Procedure ended.(Physican Out) 13:04:18 Fluoroscopy time 07.40 minutes. 13:04:25 Fluoroscopy dose: 1419 mGy 13:04:25 Flurop Dose total: 1419 13:04:32 Contrast amount:Isovue 370 124ml. 13:04:34 Sharps counted by scrub and verified by R.N. 13:04:35 Insertion/operative site no bleeding no hematoma. 13:04:44 Post-op/insertion site Right Femoral artery dressed using a 4 x 4 and Tegaderm. 13:04:49 Post procedure rhythm: unchanged. 13:04:52 Estimated blood loss: 5 ml 13:04:53 Post procedure instruction explained to patient.Patient verbalizes understanding. 13:04:54 Patient needs reinforcement of post procedure teaching. 13:04:55 Procedure and supply charges have been captured, reviewed, submitted and are correct. 13:05:00 Procedure Complication : No complications 13:05:03 Vital chart was stopped 13:05:03 See physician's report for complete and final results. 13:05:14 Report given to [facility] II. 13:05:18 Patient transfered to Med II with Stretcher. 13:05:21 Procedure ended. 13:05:21 Full Disclosure recording stopped 13:05:31 ACC-PCI Only Patient was given prescriptions, or instructed by Dayton Ryan MD to start/continue the following medications upon discharge: Plavix 13:05:33 End room use (Document Last) Intervention Summary Intervention Notes Time ActionType Lesion and Equipment Used Action# Pressure Duration Attributes 12:56:53 Inflate Prox CX EUPHORA 3.0 x 1 17 00:10 balloon 20 Balloon ([id number]) 12:57:01 Reinflate Prox CX EUPHORA 3.0 x 2 17 00:10 balloon 20 Balloon ([id number]) 12:57:13 Reinflate LMCA EUPHORA 3.0 x 1 17 00:10 balloon 20 Balloon ([id number]) 12:58:51 Place stent Prox CX DESTINEE RX 3.0 x 3 17 00:10 15 stent ([id number]) 12:59:12 Reinflate Prox CX DESTINEE RX 3.0 x 4 23 00:10 stent 15 stent balloon ([id number]) 13:00:44 Place stent LMCA DESTINEE RX 3.0 x 2 23 00:10 15 stent ([id number]) 13:01:03 Reinflate LMCA DESTINEE RX 3.0 x 3 23 00:10 stent 15 stent balloon ([id number]) 13:01:26 Reinflate LMCA DESTINEE RX 3.0 x 4 25 00:10 stent 15 stent balloon ([id number]) Device Usage Item Name Manufacture Quantity Catalog Number Hospital Part Current M inimal Lot# / Charge Number Stock Stock Serial# Code ACIST Syringe Acist 1 10926 781473 521796 915166 2 0 (66530) Medical Systems Inc Bag Decanter Microtek 1 135627 62462 436046 5 () Medical Inc. Medline Cath Medline 1 [id number] 657051 26301 262220 5 Pack ([id number]) DIAGNOSTIC St Matt 1 694834 314026 475991 532926 3 0 WIRE .035 260cm J wire (986909) ACIST Hand Acist 1 96701 514938 454262 304161 5 Control Medical (38153) Systems Inc ACIST Manifold Acist 1 14129 900756 501765 804036 5 (00288) Medical Systems Inc DIAGNOSTIC Cardinal 1 OS6702 221539 85479 367315 3 0 Multipack 5Fr Health catheter set (YP8700) Tegaderm 4 x 4 3M 1 1626W 790490 251961 071717 5 (1626W) EMERALD Guide Cardinal 1 502-455 500982 912639 585915 5 Wire (502-455) Health SHEATH 5FR Terumo 1 MSN438 355502 449161 753661 5 Independence (NRR187) MULTIPACK Cardinal 1 068591 5 Pigtail 5 Fr Health catheter MULTIPACK JL Cardinal 1 768646 5 4.0 5Fr Health catheter MULTIPACK 3DRC Cardinal 1 983887 5 5Fr catheter Health DIAGNOSTIC AR2 Cardinal 1 [id number] 121073 063874 996530 2 0 MOD 5 Fr Health catheter ([id number]) SHEATH 6FR Terumo 1 NWO001 093258 715973 563247 4 0 Independence (SEC544) INFLATOR Merit Merit 1 IJ2947 151543 528446 393623 1 5 Kwicr (YU0856) GUIDE 6FR XB Cardinal 1 20433547 956528 251771 084710 2 3.5 Health catheter (53140290) GUIDE 6FR Cardinal 1 07691949 002388 7778 784302 3 XBLAD 4.0 Health catheter (80425949) CHOICE PT [place] 1 [id number] 386063 242697 288812 5 Extra Support Scientific 182cm wire ([id number]) EUPHORA 3.0 x Medtronic 1 [id number] 664052 358890 007999 5 [id number] 20 Balloon ([id number]) DESTINEE RX 3.0 x Medtronic 2 [id number] 421312 8345644 897787 5 [id number] 15 stent [id number] ([id number]) EXOSEAL 6Fr Cardinal 1 EX600 859127 110502 067065 1 0 (EX600) Health Signature Audit [place] Stage Time Signature Unsigned Intra-Procedure 01/16/2019 Yolis Mas 1:11:04 PM RT(R) Signatures Monitor : Yolis Mas RT Signature : Date : Time : [place] [id number] [place] [address]
[2019-01-08 23:11] LABS: BASOPHILS 0.4 % (0-2); EOSINOPHILS 0.4 % (0-7); HEMATOCRIT 32.9 % (42.0-54.0); HEMOGLOBIN 10.5 g/dL (13.5-17.5); IMMATURE GRANULOCYTES 0.2 % (0-5); LYMPHOCYTES 9.8 % (15-50); MCH 25.7 pg (26.0-34.0); MCHC 31.9 g/dL (31.0-37.0); MCV 80.6 fL (80.0-100.0); MEAN PLATELET VOLUME 9.5 fL (7.4-10.4); MONOCYTES 7.8 % (2-11); NEUTROPHILS 81.4 % (40-80); PLATELET COUNT 236 10x3/uL (130-400); RBC 4.08 10x6/uL (4.20-6.10); RDW 16.7 % (11.5-14.5); WBC 8.3 10x3/uL (4.8-10.8)
[2019-01-08 23:24] LABS: APTT 38.8 SECONDS (22.8-39.4); INR 1.32 (0.85-1.17); PROTIME 15.8 SECONDS (11.6-15.0)
[2019-01-08 23:25] LABS: D-DIMER-QUANTITATIVE 1.24 ug/mLFEU (0.20-0.54)
[2019-01-08 23:28] LABS: ALBUMIN 2.9 g/dL (3.4-5.0); ALKALINE PHOSPHATASE 46 U/L (46-116); ALT (SGPT) 18 U/L (10-68); BILIRUBIN - TOTAL 0.51 mg/dL (0.2-1.3); CALC OSMOLALITY 290 mosm/kg (275-300); CALCIUM 8.9 mg/dL (8.5-10.1); CHLORIDE - SERUM 106 mmol/L (98-107); CREATININE - SERUM 1.9 mg/dL (0.6-1.3); POTASSIUM - SERUM 3.9 mmol/L (3.5-5.1); PROTEIN - SERUM 6.9 g/dL (6.4-8.2); SODIUM 139 mmol/L (136-145); UREA NITROGEN 41 mg/dL (7-18); eGFR NON AFRICAN AMERICAN 36 mL/min (90-120)
[2019-01-08 23:29] LABS: GLUCOSE 148 mg/dL (74-106)
[2019-01-08 23:38] LABS: CREATINE KINASE 88 UL (21-232); PRO BNP 23748 pg/mL (0-450); TROPONIN-I 0.028 ng/mL (0.000-0.060)
[2019-01-09 00:19] VITALS: BP 137/62
[2019-01-09] MEDS ORDERED: LANTUS SOL100 UNIT/1 SC (02:45)
[2019-01-09] MEDS ORDERED: BROVANA15 MCG/2 M INH (02:54)
[2019-01-09] MEDS ORDERED: IPRAT-ALBUT 0.5-3 ML UPD (02:57)
[2019-01-09] MEDS ORDERED: ATROVENT HFA12.9 GM INH (02:58)
[2019-01-09] MEDS ORDERED: PRAVACHOL40 MG PO (02:59)
[2019-01-09 03:43] VITALS: BP 117/73; BMI 26.4
[2019-01-09 04:41] LABS: BASOPHILS 0 % (0-2); EOSINOPHILS 0 % (0-7); HEMATOCRIT 31.5 % (42.0-54.0); HEMOGLOBIN 9.9 g/dL (13.5-17.5); IMMATURE GRANULOCYTES 0.1 % (0-5); LYMPHOCYTES 9.7 % (15-50); MCH 25.3 pg (26.0-34.0); MCHC 31.4 g/dL (31.0-37.0); MCV 80.6 fL (80.0-100.0); MEAN PLATELET VOLUME 9.7 fL (7.4-10.4); MONOCYTES 1.2 % (2-11); PLATELET COUNT 235 10x3/uL (130-400); RBC 3.91 10x6/uL (4.20-6.10); RDW 16.9 % (11.5-14.5); WBC 6.7 10x3/uL (4.8-10.8)
[2019-01-09 05:32] LABS: CALC OSMOLALITY 288 mosm/kg (275-300); CALCIUM 8.7 mg/dL (8.5-10.1); CARBON DIOXIDE 20.6 mmol/L (21.0-32.0); CHLORIDE - SERUM 106 mmol/L (98-107); CKMB 0.7 U/L (0.0-3.6); CREATINE KINASE 77 UL (21-232); CREATININE - SERUM 1.9 mg/dL (0.6-1.3); MAGNESIUM - SERUM 2.1 mg/dL (1.8-2.4); PHOSPHOROUS 3.2 mg/dL (2.5-4.9); POTASSIUM - SERUM 3.4 mmol/L (3.5-5.1); PRO BNP 29651 pg/mL (0-450); SODIUM 140 mmol/L (136-145); TROPONIN-I 0.024 ng/mL (0.000-0.060); UREA NITROGEN 41 mg/dL (7-18); eGFR NON AFRICAN AMERICAN 36 mL/min (90-120)
[2019-01-09 05:34] LABS: GLUCOSE 92 mg/dL (74-106)
[2019-01-09 09:12] VITALS: BP 135/68
[2019-01-09 12:09] VITALS: BP 149/78
[2019-01-09 12:25] LABS: CKMB 0.7 U/L (0.0-3.6); CREATINE KINASE 61 UL (21-232); POTASSIUM - SERUM 3.6 mmol/L (3.5-5.1); TROPONIN-I < 0.017 ng/mL (0.000-0.060)
[2019-01-09 13:12] VITALS: BMI 26.4
[2019-01-09 16:24] VITALS: BP 149/66
--- NOTE | 2019-01-09 20:00 | NUR ---
PATIENT IN BED WITH IV INTACT. NO COMPLAINTS OR SIGNS OF DISTRESS. CALL LIGHTW ITHIN REACH.
[2019-01-09 20:56] VITALS: BP 143/76
--- NOTE | 2019-01-09 21:00 | NUR ---
FSBS 350 12 UNITS OF INSULIN GIVEN PER SS.
[2019-01-10 00:47] VITALS: BP 124/69
--- NOTE | 2019-01-10 00:58 | NUR ---
PT RESTING IN BED. ALERT AND ORIENTED. NO SIGNS OF DISTRESS. BREATHING EVEN AND UNLABORED. PT STATES NO PROBLEMS AT THIS TIME. BED LOWERED AND LOCKED. OBED ALARM ON. CALL LIGHT IN REACH. WILL CONTINUE PLAN OF CARE.
[2019-01-10 01:24] LABS: APPEARANCE CLEAR (CLEAR); BILIRUBIN NEGATIVE (NEGATIVE); COLOR YELLOW (YELLOW); GLUCOSE 100 mg/dL (NEGATIVE); KETONE NEGATIVE (NEGATIVE); NITRITE NEGATIVE (NEGATIVE); PROTEIN 2+ mg/dL (NEGATIVE); SPECIFIC GRAVITY 1.015 (1.005-1.020); UROBILINOGEN NORMAL (NORMAL)
--- NOTE | 2019-01-10 03:12 | NUR ---
I have reviewed this patient and I concur with the Shift Assessment completed by the Licensed Practical Nurse today this shift.
[2019-01-10 05:23] VITALS: BP 143/87
--- NOTE | 2019-01-10 06:11 | NUR ---
FSBS 204 8 UNITS OF INSULIN GIVEN PER SS.
[2019-01-10 06:46] LABS: BASOPHILS 0.1 % (0-2); EOSINOPHILS 0 % (0-7); HEMATOCRIT 31.2 % (42.0-54.0); HEMOGLOBIN 9.8 g/dL (13.5-17.5); IMMATURE GRANULOCYTES 0.1 % (0-5); LYMPHOCYTES 9.2 % (15-50); MCH 25.1 pg (26.0-34.0); MCHC 31.4 g/dL (31.0-37.0); MEAN PLATELET VOLUME 10.3 fL (7.4-10.4); MONOCYTES 3.7 % (2-11); NEUTROPHILS 86.9 % (40-80); PLATELET COUNT 235 10x3/uL (130-400); RDW 16.7 % (11.5-14.5); WBC 7.1 10x3/uL (4.8-10.8)
[2019-01-10 07:11] LABS: CALCIUM 9.2 mg/dL (8.5-10.1); CARBON DIOXIDE 21.1 mmol/L (21.0-32.0); CREATININE - SERUM 2.1 mg/dL (0.6-1.3); MAGNESIUM - SERUM 2.3 mg/dL (1.8-2.4); POTASSIUM - SERUM 4.1 mmol/L (3.5-5.1)
[2019-01-10 07:12] LABS: PHOSPHOROUS 4.7 mg/dL (2.5-4.9)
--- NOTE | 2019-01-10 08:05 | NUR ---
PT RESTING IN BED. AROUSED BY VERBAL STIMULI. NO S/S OF ACUTE DISTRESS. CL IN PLACE.
[2019-01-10 08:55] VITALS: BP 137/79
[2019-01-10 12:24] VITALS: BP 151/92
--- NOTE | 2019-01-10 13:35 | NUR ---
[address] [place] [address] SUPERVISOR [employer] CALLED, "PT IS SHOWING VTACH ON TELE". CHECKED PT. PT STANDING UP IN BR URINATING. NO S/S OF ACUTE DISTRESS. CL IN PLACE.
[2019-01-10 15:07] LABS: % SATURATION 14 % (15-55); IRON 30 ug/dl (35-150); TOTAL IRON BIND CAPACITY 205 ug/dl (260-445); UNSAT IRON BIND CAPACITY 175 ug/dl (150-375)
[2019-01-10 17:34] VITALS: BP 138/84
--- NOTE | 2019-01-10 18:12 | NUR ---
PT SITTING UP ON SIDE OF BED WANTING TO KNOW, "WHEN WILL THE MATHEMATICS EDUCATION PROFESSOR BE AROUND?" HAD ELISABETH CALL DR HERRERA TO SEE IF HE WAS GOING TO CONSULT, "I WILL LOOK INTO IT I HAVE NOT BE ON THAT SIDE YET." NO S/S OF ACUTE DISTRESS. CL IN PLACE
[2019-01-10 20:00] VITALS: BP 150/83
[2019-01-11] VITALS: BP 134/77
[2019-01-11 04:00] VITALS: BP 120/72
[2019-01-11 06:08] LABS: BASOPHILS 0 % (0-2); EOSINOPHILS 0 % (0-7); HEMATOCRIT 32.7 % (42.0-54.0); HEMOGLOBIN 10.2 g/dL (13.5-17.5); IMMATURE GRANULOCYTES 0.4 % (0-5); LYMPHOCYTES 6.1 % (15-50); MCH 25.2 pg (26.0-34.0); MCHC 31.2 g/dL (31.0-37.0); MCV 80.7 fL (80.0-100.0); MEAN PLATELET VOLUME 10.1 fL (7.4-10.4); MONOCYTES 1.6 % (2-11); NEUTROPHILS 91.9 % (40-80); PLATELET COUNT 260 10x3/uL (130-400); RBC 4.05 10x6/uL (4.20-6.10); RDW 16.8 % (11.5-14.5)
[2019-01-11 06:15] LABS: WBC 10.5 10x3/uL (4.8-10.8)
[2019-01-11 06:22] LABS: ANION GAP 14.9 mmol/L (8-16); CALCIUM 9.3 mg/dL (8.5-10.1); CARBON DIOXIDE 21.6 mmol/L (21.0-32.0); CREATININE - SERUM 2.2 mg/dL (0.6-1.3); MAGNESIUM - SERUM 2.4 mg/dL (1.8-2.4); PHOSPHOROUS 4.6 mg/dL (2.5-4.9); POTASSIUM - SERUM 4.5 mmol/L (3.5-5.1)
[2019-01-11 07:20] LABS: FOLATE (FOLIC ACID) - SERUM >20.0 ng/mL (>3.0)
--- NOTE | 2019-01-11 07:26 | NUR ---
ASSESSED AT THE BEGINNING OF THE SHIFT. PT IS ALERT AND ORIENTED, ABLE TO VERBALIZE NEEDS. HE IS ABLE TO GET UP TO THE BATHROOM AD SABA AND HAS O2 AT 6 LITER HF. HIS TELEMETRY IS SHOWING PACED 72 AND HE HAS SLEEP QUITE A BIT DURING THE NIGHT. A NEW IV WAS STARTED IN HIS LEFT FOREARM BECAUSE THE ONE IN HIS HAND STARTED LEAKING. NO COMPLAINTS HAVE BEEN VOICED AND NO PAIN MEDS REQUESTED.
--- NOTE | 2019-01-11 07:28 | NUR ---
ALERT AND ORIENTED X 3. LUNGS DIMINISHED BILATERALLY. HEART SOUNDS S1 AND S2 HEARD IN ALL DOCKERY. TELEMETRY IN PLACE. BOWEL SOUNDS ACTIVE X 4. SKIN INTACT WITHOUT REDNESS. IV TO LFA PATENT WITHOUT REDNESS. O2 IN PLACE AT 2L. REQUEST AND GIVEN COFFEE. DENIES PAIN. DENIES FURTHER NEEDS. BED LOW. CALL GARCIA AND PERSONAL ITEMS IN REACH. WILL CONTINUE TO MONITOR.
--- NOTE | 2019-01-11 07:30 | NUR ---
ALERT AND ORIENTED X 3. LUNGS DIMINISHED BILATERALLY. O2 IN PLACE AT 6L. HEART SOUNDS S1 AND S2 HEARD IN ALL DOCKERY. TELEMETRY IN PLACE. BOWEL SOUNDS ACTIVE X 4. SKIN INTACT WITHOUT REDNESS. IV TO LFA PATENT WITHOUT REDNESS. BED LOW. CALL GARCIA AND PERSONAL ITEMS IN REACH. WILL CONTINUE TO MONITOR.
[2019-01-11 08:00] VITALS: BP 156/90
[2019-01-11 09:05] VITALS: Ht 193 cm; Wt 91.7 kg
--- NOTE | 2019-01-11 10:43 | NUR ---
RESTING IN BED. DENIES PAIN. DENIES NEED. WILL CONTINUE TO MONITOR.
[2019-01-11 13:07] VITALS: BP 139/83
--- NOTE | 2019-01-11 14:26 | NUR ---
NUTRITION F/U CHART REVIEWED. PT CURRENTLY SLEEPING. NURSING REPORTS PT TOLERATING RENAL ADA DIET. WILL CONTINUE TO PROVIDE DIET, MONITOR PT PROGRESS. RD FOLLOWING
--- NOTE | 2019-01-11 14:28 | NUR ---
PATIENT SLEEPING. WILL CONTINUE TO MONITOR.
--- NOTE | 2019-01-11 15:38 | MORECARE ---
CASE MANAGEMENT DISCHARGE SUMMARY PATIENT: ANASTASIIA FONTENOT UNIT: [id number] ADM DATE: 01/09/19 AGE: 78 : 39 SEX: M ROOM/BED: D.2228 AUTHOR: EMANI MENDEZ PHYSICIAN: REFERRING PHYSICIAN: ROBERT HERRERA MD DATE OF SERVICE: 01/11/19 Discharge Plan Patient Name: ANASTASIIA FONTENOT [facility] [facility] 1940 Planned Disposition: Anticipated Discharge Date: Discharge Date: Expected LOS: Initial Reviewer: [email or web address] Initial Review Date: 01/11/2019 Generated: 01/11/19 4:38 pm Comments DCP- Discharge Planning Updated by [email or web address]: Hayley Gomez on 01/11/19 2:[address] Sleeping, not disturbed at this time. Will meet at a later time. CM will continue to follow and assist with discharge planning/needs. Patient Name: ANASTASIIA FONTENOT Page [phone] at 1538 All edits/amendments must be made on the electronic document DICTATION DATE: 01/11/19 153 BUILDING TECH: RAHAT 01/11/19 1538 RPT#: [id number] DC DATE: STATUS: ADM IN [facility] [address] [place] [address] END OF REPORT
--- NOTE | 2019-01-11 17:12 | NUR ---
RECEIVED PT TO ROOM 2116 VIA W/C PER M/S STAFF AAOX4 RESP SL SOB O2 ON 6 LPM HIGH FLOW NC PT EATING EVENING MEAL DENIES ANY DISCOMFORT OR NEEDS AT THIS TIME
--- NOTE | 2019-01-11 20:00 | NUR ---
INITIAL ROUNDS AND ASSESSMENT COMPLETED. PT WITH DOBUTAMINE DRIP AT 5MCG/KG/MIN = 15ML/HR INFUSING TO LFA. TELEMETRY PACEMAKER 70. HIGH FLOW O2 @ 6L/NC. STRICT I&O. CALL LIGHT IN REACH. MONITOR AND CPOC.
[2019-01-11 20:21] VITALS: BP 160/97
--- NOTE | 2019-01-11 22:49 | NUR ---
BEDTIME MEDS GIVEN. PT HAS SCHEDULED ABT THAT IS NOT COMPATIBLE WITH HIS DOBUTAMINE DRIP. SITED NEW 20G TO RFA. MONITOR AND CPOC.
[2019-01-12] VITALS (7 sets, daily range): BP systolic 142–166; BP diastolic 86–102
--- NOTE | 2019-01-12 00:44 | NUR ---
IV ABT UP AND INFUSING TO RFA AT THIS TIME. PT RESTING. NO OTHER NEEDS.
[2019-01-12 04:06] LABS: BASOPHILS 0 % (0-2); EOSINOPHILS 0 % (0-7); HEMATOCRIT 33.6 % (42.0-54.0); HEMOGLOBIN 10.3 g/dL (13.5-17.5); IMMATURE GRANULOCYTES 0.3 % (0-5); LYMPHOCYTES 4.2 % (15-50); MCH 24.9 pg (26.0-34.0); MCHC 30.7 g/dL (31.0-37.0); MCV 81.4 fL (80.0-100.0); MEAN PLATELET VOLUME 10.4 fL (7.4-10.4); MONOCYTES 2.1 % (2-11); NEUTROPHILS 93.4 % (40-80); PLATELET COUNT 258 10x3/uL (130-400); RBC 4.13 10x6/uL (4.20-6.10); RDW 16.9 % (11.5-14.5); WBC 12.8 10x3/uL (4.8-10.8)
[2019-01-12 04:19] LABS: ANION GAP 15.3 mmol/L (8-16); CALCIUM 8.8 mg/dL (8.5-10.1); CARBON DIOXIDE 20.9 mmol/L (21.0-32.0); MAGNESIUM - SERUM 2.3 mg/dL (1.8-2.4); PHOSPHOROUS 4.3 mg/dL (2.5-4.9); POTASSIUM - SERUM 4.2 mmol/L (3.5-5.1)
--- NOTE | 2019-01-12 07:16 | NUR ---
NOTIFIED LAB THAT PT WAS NOW BEING MORE COOPERATIVE AND THEY COULD ATTEMPT TO COLLECT HIS AM LABS AT THIS TIME.
--- NOTE | 2019-01-12 20:00 | NUR ---
INITIAL ROUNDS AND ASSESSMENT COMPLETED. PT RESTING IN BED. ALERT/ORIENTED. IV DOBUTAMINE INFUSING TO LFA AT 5MCG/KG/MIN (15ML/HR). FSBS 141. PACED/69 PER TELEMETRY. SALINE LOCK TO RFA FOR ABT. NO NEEDS AT THIS TIME. CALL LIGHT IN REACH. MONITOR AND CPOC.
--- NOTE | 2019-01-13 01:26 | NUR ---
ABT COMPLETED NOW FOR THE NIGHT. PT RESTING WITH EYES CLOSED. RESPS EVEN/NONLABORED. IV DOBUTAMINE INFUSING AT 15ML/HR. MONITOR AND CPOC.
[2019-01-13 03:55] VITALS: BP 156/81
[2019-01-13 04:22] LABS: BASOPHILS 0 % (0-2); EOSINOPHILS 0 % (0-7); HEMATOCRIT 33.5 % (42.0-54.0); HEMOGLOBIN 10.5 g/dL (13.5-17.5); IMMATURE GRANULOCYTES 0.6 % (0-5); MCH 25.5 pg (26.0-34.0); MCHC 31.3 g/dL (31.0-37.0); MCV 81.5 fL (80.0-100.0); MEAN PLATELET VOLUME 10.4 fL (7.4-10.4); MONOCYTES 1.6 % (2-11); NEUTROPHILS 92.8 % (40-80); PLATELET COUNT 251 10x3/uL (130-400); RBC 4.11 10x6/uL (4.20-6.10); RDW 16.8 % (11.5-14.5); WBC 11.6 10x3/uL (4.8-10.8)
[2019-01-13 04:32] LABS: ANION GAP 15.2 mmol/L (8-16); CALCIUM 8.9 mg/dL (8.5-10.1); CREATININE - SERUM 2.1 mg/dL (0.6-1.3); MAGNESIUM - SERUM 2.3 mg/dL (1.8-2.4); PHOSPHOROUS 4.4 mg/dL (2.5-4.9); POTASSIUM - SERUM 4.2 mmol/L (3.5-5.1)
[2019-01-13 08:02] VITALS: BP 151/88
--- NOTE | 2019-01-13 09:55 | NUR ---
UP TO SHOWER WITH SSIS SSRS DEVELOPER ASSIST. WILL CONT. PLAN OF CARE.
[2019-01-13 11:50] VITALS: BP 143/78
[2019-01-13 16:03] VITALS: BP 152/89
[2019-01-13 19:10] VITALS: BP 144/86
--- NOTE | 2019-01-13 19:46 | NUR ---
INITIAL ROUNDS AND ASSESSMENT COMPLETED. PT RESTING IN BED. NO DISTRESS. MONITOR AND CPOC.
--- NOTE | 2019-01-13 22:08 | NUR ---
BEDTIME MEDS GIVEN. FSBS 223, SLIDING SCALE INSULIN GIVEN. PT NO LONGER ON IV ABT. IV SOLUMEDROL GIVEN VIA RFA SALINE LOCK.
[2019-01-13 23:55] VITALS: BP 148/82
[2019-01-14 03:55] VITALS: BP 156/85
--- NOTE | 2019-01-14 04:24 | NUR ---
RESTING IN BED WITH NO DISTRESS. IV DOBUTAMINE INFUSING AND PT UP INDEPENDENTLY TO VOID. STRICT I&O BEING MEASURED. MONITOR AND CPOC.
[2019-01-14 05:34] LABS: BASOPHILS 0 % (0-2); EOSINOPHILS 0 % (0-7); HEMATOCRIT 33.7 % (42.0-54.0); HEMOGLOBIN 10.6 g/dL (13.5-17.5); IMMATURE GRANULOCYTES 0.3 % (0-5); LYMPHOCYTES 5.8 % (15-50); MCH 25.1 pg (26.0-34.0); MCHC 31.5 g/dL (31.0-37.0); MCV 79.7 fL (80.0-100.0); MEAN PLATELET VOLUME 10.2 fL (7.4-10.4); MONOCYTES 1.7 % (2-11); NEUTROPHILS 92.2 % (40-80); PLATELET COUNT 255 10x3/uL (130-400); RBC 4.23 10x6/uL (4.20-6.10); RDW 16.8 % (11.5-14.5); WBC 11.5 10x3/uL (4.8-10.8)
[2019-01-14 05:41] LABS: ANION GAP 15.3 mmol/L (8-16); CALCIUM 9.5 mg/dL (8.5-10.1); CARBON DIOXIDE 22.9 mmol/L (21.0-32.0); CREATININE - SERUM 1.7 mg/dL (0.6-1.3); MAGNESIUM - SERUM 2.3 mg/dL (1.8-2.4); POTASSIUM - SERUM 4.2 mmol/L (3.5-5.1)
--- NOTE | 2019-01-14 07:15 | NUR ---
RECEIVED PT SITTING ON SIDE OF BED AAOX4 RESP UNLABORED O2 ON 6 PRODUCTION SANITIZER HIGH FLOW NC PT DENIES ANY NEEDS OR DISCOMFORT WILL CONTINUE TO MONITOR
[2019-01-14 08:05] VITALS: BP 169/59
[2019-01-14 11:38] VITALS: BP 162/92
--- NOTE | 2019-01-14 15:05 | MORECARE ---
CASE MANAGEMENT DISCHARGE SUMMARY PATIENT: ANASTASIIA FONTENOT UNIT: [id number] ADM DATE: 01/09/19 AGE: 78 : 39 SEX: M ROOM/BED: D.2117 AUTHOR: EMANI MENDEZ PHYSICIAN: REFERRING PHYSICIAN: ROBERT HERRERA MD DATE OF SERVICE: 01/14/19 Discharge Plan Patient Name: ANASTASIIA FONTENOT [facility] [facility] 1940 Planned Disposition: Home with Home Health Anticipated Discharge Date: 01/15/19 Discharge Date: Expected LOS: 6 Initial Reviewer: [email or web address] Initial Review Date: 01/11/2019 Generated: 01/14/19 4:04 pm DCP- Discharge Planning Updated by [email or web address]: Hayley Gomez on 01/11/19 2:[address] Sleeping, not disturbed at this time. Will meet at a later time. CM will continue to follow and assist with discharge planning/needs. Last DP export: 01/11/19 2:38 p Patient Name: ANASTASIIA FONTENOT Page 16188 at 1505 All edits/amendments must be made on the electronic document DICTATION DATE: 01/14/191503 CATTLE FARMER: RAHAT 01/14/19 150 RPT#: [id number] DC DATE: STATUS: ADM IN [facility] [address] [place] [address] END OF REPORT
--- NOTE | 2019-01-14 15:12 | MORECARE ---
CASE MANAGEMENT DISCHARGE SUMMARY PATIENT: ANASTASIIA FONTENOT UNIT: [id number] ADM DATE: 01/09/19 AGE: 78 : 39 SEX: M ROOM/BED: D.2117 AUTHOR: EMANI MENDEZ PHYSICIAN: REFERRING PHYSICIAN: ROBERT HERRERA MD DATE OF SERVICE: 01/14/19 Discharge Plan Patient Name: ANASTASIIA FONTENOT Facility: [facility]:[place] : 1940 Planned Disposition: Home with Home Health Anticipated Discharge Date: 01/15/19 Discharge Date: Expected LOS: 6 Initial Reviewer: [email or web address] Initial Review Date: 01/11/2019 Generated: 01/14/19 4:12 pm DCP- Discharge Planning Updated by [email or web address]: Hayley Gomez on 01/11/19 2:[address] Sleeping, not disturbed at this time. Will meet at a later time. CM will continue to follow and assist with discharge planning/needs. DCPIA - Discharge Planning Initial Assessment Updated by [email or web address]: Pb Spencer on 01/14/19 3:05 pm * Is the patient Alert and Oriented? Yes * How many steps to enter\exit or inside your home? 2 W / RAMP * PCP DR. LEE * Pharmacy [facility] * Preadmission Environment Home with Family * ADLs Independent * Equipment Nebulizer Oxygen Walker Wheelchair * Other Equipment HOME AND PORTABLE OXYGEN [facility] - MEDICAL EQUIPMENT PROVIDER PREFERENCE * List name and contact numbers for known caregivers / representatives who currently or will assist patient after discharge: EDA FONTENOT, [place], [place] [phone] * Verbal permission to speak to the caregivers and representatives has been obtained from the patient. N/A * Community resources currently utilized Home Health * Please name any agencies selected above. [facility] * Additional services required to return to the preadmission environment? No * Can the patient safely return to the preadmission environment? Yes * Has this patient been hospitalized within the prior 30 days at any hospital? No Last DP export: 01/14/19 2:04 p Patient Name: ANASTASIIA FONTENOT Page 86803 at 1512 All edits/amendments must be made on the electronic document DICTATION DATE: 01/14/191511 BINDER LAYER: RAHAT 01/14/191511 RPT#: [id number] DC DATE: STATUS: ADM IN [facility] [address] [place] [address] END OF REPORT
--- NOTE | 2019-01-14 15:31 | MORECARE ---
CASE MANAGEMENT DISCHARGE SUMMARY PATIENT: ANASTASIIA FONTENOT UNIT: [id number] ADM DATE: 01/09/19 AGE: 78 : 39 SEX: M ROOM/BED: D.211 AUTHOR: ANDREA,DOC PHYSICIAN: REFERRING PHYSICIAN: ROBERT HERRERA MD DATE OF SERVICE: 01/14/19 Discharge Plan Patient Name: ANASTASIIA FONTENOT Facility: [facility]:[place] : 1940 Planned Disposition: Home with Home Health Anticipated Discharge Date: 01/15/19 Discharge Date: Expected LOS: 6 Initial Reviewer: [email or web address] Initial Review Date: 01/11/2019 Generated: 01/14/19 4:30 pm Comments DCP- Discharge Planning Updated by [email or web address]: Pb Spencer on 01/14/19 2:[address] Patient Name: ANASTASIIA FONTENOT Admission Status: ER Accout number: [id number] Admission Date: 01-09-2019 : 1940 Admission Diagnosis:HEART FAILURE, UNSPECIFIED Attending: ROBERT HERRERA Current LOS: 5 Anticipated DC Date: 01-15-2019 Planned Disposition: Home with Home Health Primary Insurance: MEDICARE A & B PLANNED EXTERNAL PROVIDER: [facility] Discharge Planning Comments: CM MET WITH PT IN ROOM TO DISCUSS DISCHARGE PLANNING AND NEEDS. PT REPORTS LIVING AT HOME INDEPENDENTLY WITH HIS . PT HAS WALKER AND WHEELCHAIR THAT HE DOES NOT USE; PT HAS NEBULIZER AND HOME / PORTABLE OXYGEN FROM [facility]. PT HAS HOME HEALTH WITH [facility]. CM DISCUSSED AVAILABILITY OF HOME HEALTH, REHAB SERVICES AND MEDICAL EQUIPMENT. PT DENIES DISCHARGE NEEDS,OTHER THAN HOME HEALTH RESUMPTION. PT REPORTS HIS WILL PICK HIM UP FOR DISCHARGE HOME. IMPORTANT MESSAGE FROM MEDICARE PROVIDED AND EXPLAINED. CHOICE FOR [facility] SIGNED. CM CALLED [facility], , SPOKE TO ISRRAEL WHO VERIFIED PT IS ACTIVE WITH [facility] AND THEY CAN RESUME SERVICES WHEN PT DISCHARGES HOME. CM FAXED HOSPITAL UPDATE TO [facility] AT [phone]. PT PLANS TO DISCHARGE HOME WITH . FOR DISCHARGE NOTIFY [facility] FOR RESUMPTION, , FAX DISCHARGE INFORMATION TO [facility] AT [phone]. CM TO CONTINUE TO FOLLOW AND ASSIST NEEDED. Business School Dean: Pb Spencer DCP- Discharge Planning Updated by [id number]: Hayley Patricia on 01/11/19 2:[address] Sleeping, not disturbed at this time. Will meet at a later time. CM will continue to follow and assist with discharge planning/needs. DCPIA - Discharge Planning Initial Assessment Updated by [email or web address]: Pb Spencer on 01/14/19 3:05 pm * Is the patient Alert and Oriented? Yes * How many steps to enter\exit or inside your home? 2 W / RAMP * PCP DR. LEE * Pharmacy [facility] * Preadmission Environment Home with Family * ADLs Independent * Equipment Nebulizer Oxygen Walker Wheelchair * Other Equipment HOME AND PORTABLE OXYGEN [facility] - MEDICAL EQUIPMENT PROVIDER PREFERENCE * List name and contact numbers for known caregivers / representatives who currently or will assist patient after discharge: EDA FONTENOT, [place], [place] [phone] * Verbal permission to speak to the caregivers and representatives has been obtained from the patient. N/A * Community resources currently utilized Home Health * Please name any agencies selected above. [facility] * Additional services required to return to the preadmission environment? No * Can the patient safely return to the preadmission environment? Yes * Has this patient been hospitalized within the prior 30 days at any hospital? No External Providers External Provider: [facility] Next Contact Date: 01/14/2019 Service Request Date: Service Type: Resolution: Reviewer: Comments: Last DP export: 01/14/19 2:12 p Patient Name: ANASTASIIA FONTENOT Page 17051 at 1531 All edits/amendments must be made on the electronic document DICTATION DATE: 01/14/19 1530 BODY PRESS OPERATOR: RAHAT 01/14/19 1530 RPT#: [id number] DC DATE: STATUS: ADM IN [facility] [address] [place] [address] END OF REPORT
--- NOTE | 2019-01-14 16:09 | MORECARE ---
CASE MANAGEMENT DISCHARGE SUMMARY PATIENT: ANASTASIIA FONTENOT UNIT: [id number] ADM DATE: 01/09/19 AGE: 78 : 39 SEX: M ROOM/BED: D.2110 AUTHOR: ANDREA,DOC PHYSICIAN: REFERRING PHYSICIAN: ROBERT HERRERA MD DATE OF SERVICE: 01/14/19 Discharge Plan Patient Name: ANASTASIIA FONTENOT Facility: [facility]:[place] : 1940 Planned Disposition: Home with Home Health Anticipated Discharge Date: 01/15/19 Discharge Date: Expected LOS: 6 Initial Reviewer: [email or web address] Initial Review Date: 01/11/2019 Generated: 01/14/19 5:08 pm Comments DCP- Discharge Planning Updated by [email or web address]: Pb Spencer on 01/14/19 2:[address] Patient Name: ANASTASIIA FONTENOT Admission Status: ER Accout number: [id number] Admission Date: 01-09-2019 : 1940 Admission Diagnosis:HEART FAILURE, UNSPECIFIED Attending: ROBERT HERRERA Current LOS: 5 Anticipated DC Date: 01-15-2019 Planned Disposition: Home with Home Health Primary Insurance: MEDICARE A & B PLANNED EXTERNAL PROVIDER: [facility] Discharge Planning Comments: CM MET WITH PT IN ROOM TO DISCUSS DISCHARGE PLANNING AND NEEDS. PT REPORTS LIVING AT HOME INDEPENDENTLY WITH HIS . PT HAS WALKER AND WHEELCHAIR THAT HE DOES NOT USE; PT HAS NEBULIZER AND HOME / PORTABLE OXYGEN FROM [facility]. PT HAS HOME HEALTH WITH [facility]. CM DISCUSSED AVAILABILITY OF HOME HEALTH, REHAB SERVICES AND MEDICAL EQUIPMENT. PT DENIES DISCHARGE NEEDS,OTHER THAN HOME HEALTH RESUMPTION. PT REPORTS HIS WILL PICK HIM UP FOR DISCHARGE HOME. IMPORTANT MESSAGE FROM MEDICARE PROVIDED AND EXPLAINED. CHOICE FOR [facility] SIGNED. CM CALLED [facility], , SPOKE TO ISRRAEL WHO VERIFIED PT IS ACTIVE WITH [facility] AND THEY CAN RESUME SERVICES WHEN PT DISCHARGES HOME. CM FAXED HOSPITAL UPDATE TO [facility] AT [phone]. PT PLANS TO DISCHARGE HOME WITH . FOR DISCHARGE NOTIFY [facility] FOR RESUMPTION, , FAX DISCHARGE INFORMATION TO [facility] AT [phone]. CM TO CONTINUE TO FOLLOW AND ASSIST NEEDED. Screen Printing Machine Operator: Pb Spencer DCP- Discharge Planning Updated by [email or web address]: Hayley Patricia on 01/11/19 2:[address] Sleeping, not disturbed at this time. Will meet at a later time. CM will continue to follow and assist with discharge planning/needs. DCPIA - Discharge Planning Initial Assessment Updated by [email or web address]: Pb Spencer on 01/14/19 3:05 pm * Is the patient Alert and Oriented? Yes * How many steps to enter\exit or inside your home? 2 W / RAMP * PCP DR. LEE * Pharmacy [facility] * Preadmission Environment Home with Family * ADLs Independent * Equipment Nebulizer Oxygen Walker Wheelchair * Other Equipment HOME AND PORTABLE OXYGEN [facility] - MEDICAL EQUIPMENT PROVIDER PREFERENCE * List name and contact numbers for known caregivers / representatives who currently or will assist patient after discharge: EDA FONTENOT, [place], [place] [phone] * Verbal permission to speak to the caregivers and representatives has been obtained from the patient. N/A * Community resources currently utilized Home Health * Please name any agencies selected above. [facility] * Additional services required to return to the preadmission environment? No * Can the patient safely return to the preadmission environment? Yes * Has this patient been hospitalized within the prior 30 days at any hospital? No Coverage Notice Reviewer: [id number] Jesika Spencer Notice Issued Date-Time: 01/14/2019 13:30 Notice Type: IM Discharge Notice Notice Delivered To: Patient Relationship to Patient: [employer] Name: Delivery Method: HAND - Hand Delivered Ghada Days: Prior Verbal Notification: Recipient Understood Notice: Yes Recipient Signature: Yes Med Rec Note Co-signed by Attending: Coverage Notice Comment: Reviewer: [id number] Jesika Spencer Notice Issued Date-Time: 01/14/2019 13:30 Notice Type: Patient Choice Letter Notice Delivered To: Patient Relationship to Patient: [employer] Name: Delivery Method: HAND - Hand Delivered Ghada Days: Prior Verbal Notification: Recipient Understood Notice: Yes Recipient Signature: Yes Med Rec Note Co-signed by Attending: Coverage Notice Comment: [facility] Last DP export: 01/14/19 2:31 p Patient Name: ANASATSIIA FONTENOT Page 80166 at 1609 All edits/amendments must be made on the electronic document DICTATION DATE: 01/14/191607 PROCESS MECHANIC: RAHAT 01/14/191607 RPT#: [id number] DC DATE: STATUS: ADM IN [facility] [address] [place] [address] END OF REPORT
[2019-01-14 18:48] VITALS: BP 148/91
--- NOTE | 2019-01-14 19:32 | NUR ---
RESUMING PATIENT CARE. PATIENT IS ALERT AND ORIENTED, RESTING COMFORTABLY IN BED. RESPIRATIONS ARE EVEN AND UNLABORED. NO S/S OF DISTRESS. NO C/O PAIN. CALL LIGHT WITHIN REACH. WILL CPOC.
[2019-01-14 20:00] VITALS: BP 140/87
--- NOTE | 2019-01-14 20:51 | NUR ---
OTHROSTATIC B/P LAYING 140/87 HR 71 O2 95 RA SITTING 140/91 HR 75 O2 93 RA STANDING 147/79 HR 75 O2 93 RA
[2019-01-15 04:00] VITALS: BP 150/89
--- NOTE | 2019-01-15 07:15 | NUR ---
RECEIVED PT IN BED SITTING ON SIDE AAOX4 RESP UNLABORED SKIN W/D COLOR WNL DENIES ANY NEEDS AT THIS TIME NAD NOTED
[2019-01-15 08:09] VITALS: BP 165/97
--- NOTE | 2019-01-15 08:20 | NUR ---
FSBS 193 HUMALOG 8 UNITS GIVEN SQ RT ARM
--- NOTE | 2019-01-15 11:46 | NUR ---
FSBS 331 HUMALOG 20 UNITS GIVEN SQ LT ARM
[2019-01-15 12:09] VITALS: BP 168/89
[2019-01-15 13:12] LABS: ANION GAP 16.1 mmol/L (8-16); CALCIUM 9.5 mg/dL (8.5-10.1); CARBON DIOXIDE 22.3 mmol/L (21.0-32.0); CREATININE - SERUM 1.9 mg/dL (0.6-1.3); POTASSIUM - SERUM 4.4 mmol/L (3.5-5.1)
[2019-01-15 13:19] LABS: BASOPHILS 0 % (0-2); EOSINOPHILS 0 % (0-7); HEMATOCRIT 35.6 % (42.0-54.0); HEMOGLOBIN 11.5 g/dL (13.5-17.5); IMMATURE GRANULOCYTES 0.5 % (0-5); LYMPHOCYTES 3.7 % (15-50); MCH 25.7 pg (26.0-34.0); MCHC 32.3 g/dL (31.0-37.0); MCV 79.5 fL (80.0-100.0); MEAN PLATELET VOLUME 10.5 fL (7.4-10.4); MONOCYTES 2.2 % (2-11); NEUTROPHILS 93.6 % (40-80); PLATELET COUNT 251 10x3/uL (130-400); RBC 4.48 10x6/uL (4.20-6.10)
[2019-01-15 13:26] LABS: WBC 16.1 10x3/uL (4.8-10.8)
--- NOTE | 2019-01-15 13:31 | NUR ---
Nutrition follow-up: Diet: Renal ADA PO intake ~100% of most meals Pt continues to diures Wt: 214# Labs reviewed; glucose elevated possibly due to Solumedrol 60 mg Q 12 RDN following.
--- NOTE | 2019-01-15 15:33 | NUR ---
RESTING QUIETLY NAD NOTED
[2019-01-15 16:34] VITALS: BP 141/82
--- NOTE | 2019-01-15 19:41 | NUR ---
RESUMED PATIENT CARE. PATIENT RECEIVING UPDRAFT AT THIS TIME. RESPIRATIONS EVEN AND UNLABORED. NO S/S OF DISTRESS. NO C/O OF PAINT. CALL LIGHT IN REACH. WILL CPOC
[2019-01-15 20:00] VITALS: BP 162/95
[2019-01-15 23:30] VITALS: BP 143/84
[2019-01-16 04:00] VITALS: BP 149/80
[2019-01-16 06:48] LABS: BASOPHILS 0 % (0-2); EOSINOPHILS 0 % (0-7); HEMATOCRIT 35.4 % (42.0-54.0); HEMOGLOBIN 11.3 g/dL (13.5-17.5); IMMATURE GRANULOCYTES 0.5 % (0-5); LYMPHOCYTES 5.2 % (15-50); MCH 25.4 pg (26.0-34.0); MCHC 31.9 g/dL (31.0-37.0); MCV 79.6 fL (80.0-100.0); MEAN PLATELET VOLUME 10.6 fL (7.4-10.4); MONOCYTES 1.2 % (2-11); NEUTROPHILS 93.1 % (40-80); PLATELET COUNT 273 10x3/uL (130-400); RBC 4.45 10x6/uL (4.20-6.10); RDW 17.1 % (11.5-14.5)
[2019-01-16 07:21] LABS: ANION GAP 14.1 mmol/L (8-16); CALCIUM 9.1 mg/dL (8.5-10.1); CARBON DIOXIDE 23.2 mmol/L (21.0-32.0); CREATININE - SERUM 1.7 mg/dL (0.6-1.3); POTASSIUM - SERUM 4.3 mmol/L (3.5-5.1)
[2019-01-16 08:31] VITALS: BP 142/76
--- NOTE | 2019-01-16 09:53 | NUR ---
CONSENTS SIGNED FOR [facility]. WILL CONT. PLAN OF CARE.
[2019-01-16 11:39] VITALS: BP 160/97
--- NOTE | 2019-01-16 12:15 | NUR ---
PRE-OPS GIVEN. TO LATHE MECHANIC BY BED.
--- NOTE | 2019-01-16 13:33 | NUR ---
BACK FROM TELECOMMUNICATIONS MANAGER. VS WNL. RIGHT GROIN STABLE WITHOUT BLEEDING OR HEMATOMA NOTED. WILL MONITOR.
[2019-01-16 16:38] VITALS: BP 153/97
--- NOTE | 2019-01-16 16:57 | NUR ---
BACK FROM FORM SETTER. KARLA MORTENSEN.
--- NOTE | 2019-01-16 17:48 | NUR ---
STATES HE FEELS LIKE HE HAS ASPIRATED. DR. DOMINIQUE NOTIFIED. STA CXR ORDERED.
--- NOTE | 2019-01-16 18:07 | PN ---
PATIENT:ANASTASIIA FONTENOT MEDICAL RECORD: [id number] LOCATION:D. D.211 ADMISSION DATE: 01/09/19 PROGRESS NOTE DATE OF SERVICE: 01/16/2019 DIAGNOSES: 1. Congestive heart failure, chronic systolic dysfunction. 2. Dilated cardiomyopathy. 3. Coronary artery disease. 4. Status post coronary artery bypass graft surgery. 5. Angina. 6. Shortness of breath, dyspnea on exertion. 7. Pneumonia. 8. Hypertension. 9. Hyperlipidemia. HOSPITAL COURSE: Mr. Fontenot is known to us. He has a history of bypass surgery in 2014. At that time, he was told that his heart function was in the 35% range. He did well until the last few weeks. He began having more shortness of breath and he had chest pain, chest pressure similar to that prior to his bypass surgery. He was admitted with decompensated heart failure. Troponin was not drawn. His breathing has improved. He has continued to have chest pressure; however, his ejection fraction went from the 35% range now to the 20% range. He does have pulmonary hypertension, but he has moderate mitral regurgitation as well as aortic insufficiency, which would account for that. He was seen by our nurse practitioner today and felt that a right heart catheterization was in order. At this time, the right heart catheterization will add nothing to his overall picture. He has mitral regurgitation, aortic insufficiency, which would lead to the pulmonary hypertension. The pulmonary hypertension is secondary to the valvular heart disease and decompensated ejection fraction with his chest pressure. In light of his coronary bypass graft surgery, we would proceed with left heart catheterization as this is an unstable anginal picture rather than a right heart and pulmonary hypertension picture. Hopefully, there will be an opportunity for revascularization to improve his ejection fraction from a long-term standpoint to keep him out of heart failure. TRANSINT:[id number] Voice Confirmation ID: [id number] DOCUMENT ID: [id number] LEWIS ANNE MD at 1807 CC: [id number] DICTATION DATE: 01/16/19 0951 MEDICAL OFFICE TECHNICIAN: 01/16/19 1111 ADM IN [facility] [address] [place] [address]
--- NOTE | 2019-01-16 18:07 | OP ---
PATIENT NAME: ANASTASIIA FONTENOT MEDICAL RECORD: [id number] :38 LOCATION:D.M2 D.2117 ADMISSION DATE:01/09/19 SURGEON: LEWIS ANNE MD DATE OF OPERATION: 01/16/2019 PROCEDURES: 1. PTCA stent left main. 2. PTCA stent left circumflex. 3. Left heart catheterization. 4. Selective coronary angiography. 5. Left ventriculogram. 6. Vein graft angiography. 7. BOSE angiography. INDICATION: Unstable angina, coronary artery disease, congestive heart failure, worsening cardiomyopathy. PROCEDURE IN DETAIL: After informed consent was obtained and after a detailed description of the risks, benefits as well as alternative therapies, the patient elected to proceed with angiogram and angioplasty. The right femoral area was prepped and draped in normal sterile fashion. Right femoral artery was cannulated via modified Seldinger technique with placement of 6-Icelandic sheath. All catheters exchanged through this sheath. FINDINGS: The left ventriculogram was performed in standard 30-degree VALDES view, reveals global hypokinesis, ejection fraction of 20%. SELECTIVE CORONARY ANGIOGRAPHY: 1. Left main is 95% stenosed. 2. Proximal left circumflex is 95% stenosed. 3. Ramus intermedius is 99% stenosed. 4. Left anterior descending is totally occluded. 5. Right coronary has moderate irregularities, but no flow-limiting stenosis. 6. BOSE to the LAD is patent; however, after this there is 95% stenosis of the [place] LAD. 7. Vein graft, LAD diagonal and ramus intermedius were widely patent; however, the filling of the ramus intermedius does not backfill the remainder of the circumflex, and second and third obtuse marginal. PTCA STENT OF LEFT MAIN AND LEFT CIRCUMFLEX: Due to the fact that the vein graft to the ramus intermedius does not backfill the remainder of the circumflex, this was intervened. The left main was addressed with a 3.0 x 15 mm Sterling stent, the circumflex with a 3.0 x 15 mm Juan stent. Result was 0% residual stenosis. OVERALL IMPRESSION: Successful percutaneous transluminal coronary angioplasty stent of the left main and left circumflex going from 95% initial stenosis on each vessel to 0% residual. PLAN: PTCA stent of the LAD through the BOSE graft. TRANSINT:[id number] Voice Confirmation ID: [id number] DOCUMENT ID: [id number] OPERATIVE REPORT [id number] ANASTASIIA FONTENOT, LEWIS ELLSWORTH at 1807 CC: [id number] DICTATION DATE: 01/16/19 1308 SIZE MARKER: 01/16/19 1412 ADM IN [facility] [id number] [place] [address]
[2019-01-16 20:00] VITALS: BP 146/83
[2019-01-17] VITALS: BP 150/93
[2019-01-17 04:00] VITALS: BP 139/80
[2019-01-17 06:18] LABS: BASOPHILS 0 % (0-2); EOSINOPHILS 0 % (0-7); HEMATOCRIT 37.4 % (42.0-54.0); HEMOGLOBIN 11.9 g/dL (13.5-17.5); IMMATURE GRANULOCYTES 0.7 % (0-5); LYMPHOCYTES 5.3 % (15-50); MCH 25.3 pg (26.0-34.0); MCHC 31.8 g/dL (31.0-37.0); MCV 79.6 fL (80.0-100.0); MEAN PLATELET VOLUME 11.4 fL (7.4-10.4); PLATELET COUNT 293 10x3/uL (130-400); RDW 17.4 % (11.5-14.5); WBC 12.2 10x3/uL (4.8-10.8)
[2019-01-17 06:54] LABS: ANION GAP 13.4 mmol/L (8-16); CALCIUM 9.3 mg/dL (8.5-10.1); CARBON DIOXIDE 25.5 mmol/L (21.0-32.0); CREATININE - SERUM 1.7 mg/dL (0.6-1.3); MAGNESIUM - SERUM 2.4 mg/dL (1.8-2.4); PHOSPHOROUS 4.7 mg/dL (2.5-4.9); POTASSIUM - SERUM 4.9 mmol/L (3.5-5.1)
[2019-01-17 07:31] VITALS: BP 162/96
[2019-01-17 11:21] VITALS: BP 145/91
--- NOTE | 2019-01-17 15:12 | NUR ---
RESP UL ON . IV PATENT. SPEECH THERAPIST AT FOR [facility]. WILL CONT. PLAN OF CARE.
[2019-01-17 15:24] VITALS: BP 156/89
--- NOTE | 2019-01-17 19:20 | NUR ---
RESUMING PATIENT CARE. PATIENT IS ALERT AND ORIENTED, RESTING COMFORTABLY IN BED. PATIENT REMAINS ON 3L NC. NO S/S OF DISTRESS. NO C/O PAIN. CALL LIGHT WITHIN REACH. WILL CPOC.
[2019-01-17 20:00] VITALS: BP 160/88
[2019-01-18] VITALS: BP 158/85
[2019-01-18 04:00] VITALS: BP 156/80
[2019-01-18 08:37] VITALS: BP 158/93
--- NOTE | 2019-01-18 10:06 | NUR ---
TELEMETRY SR. RESP UL ON . CONSENTS SIGNED [facility]. WILL CONT. PLAN OF CARE.
--- NOTE | 2019-01-18 12:01 | NUR ---
FSBS 310 AND NPO. AVIS COLEMAN NOTIFIED. TO FALLOW SS ORDERED.
[2019-01-18 12:08] VITALS: BP 167/100
--- NOTE | 2019-01-18 13:13 | NUR ---
PRE-OPS GIVEN. TO PARKING TECHNICIAN BY BED.
--- NOTE | 2019-01-18 14:48 | NUR ---
BACK FROM BUYER BROKER. VS WNL. LEFT GROIN STABLE WITHOUT BLEEDING OR HEMATOMA NOTED. WILL MONITOR.
[2019-01-18 17:16] VITALS: BP 147/88
--- NOTE | 2019-01-18 18:18 | NUR ---
BED REST UP. GROIN STABLE.
[2019-01-18 20:00] VITALS: BP 133/70
[2019-01-19] VITALS: BP 160/100
[2019-01-19 04:00] VITALS: BP 158/81
--- NOTE | 2019-01-19 07:20 | NUR ---
RECEIVED PT IN BED AAOX4 RESP UNLABORED SKIN W/D DENIES ANY NEEDS OR DISCOMFORT NAD NOTED WILL CONTINUE TO MONITOR
[2019-01-19 08:13] VITALS: BP 136/65
--- NOTE | 2019-01-19 12:07 | NUR ---
FSBS 314 HUMALOG 20 UNITS GIVEN SQ LT ARM
[2019-01-19 13:18] VITALS: BP 137/79
--- NOTE | 2019-01-19 16:41 | NUR ---
FSBS 126 NO COVERAGE REQUIRED
[2019-01-19 17:19] VITALS: BP 110/70
--- NOTE | 2019-01-19 19:56 | NUR ---
INITIAL ROUNDS AND ASSESSMENT COMPLETED. PT RESTING IN BED. NO DISTRESS. CALL LIGHT IN REACH. SEE ASSESSMENT. CALL LIGHT IN REACH.
[2019-01-19 20:00] VITALS: BP 143/76
[2019-01-20] VITALS: BP 157/83
[2019-01-20 04:00] VITALS: BP 151/87
--- NOTE | 2019-01-20 04:59 | NUR ---
PT HAS RESTED DURING THE NIGHT. IV DOBUTREX INFUSING. NO DISCOMFORT VOICED. NO CHANGE FROM INITIAL SHIFT ASSESSMENT. MONITOR AND CPOC.
[2019-01-20 05:21] LABS: BASOPHILS 0 % (0-2); EOSINOPHILS 0 % (0-7); HEMATOCRIT 39.5 % (42.0-54.0); HEMOGLOBIN 12.5 g/dL (13.5-17.5); IMMATURE GRANULOCYTES 0.6 % (0-5); LYMPHOCYTES 8.3 % (15-50); MCH 25.4 pg (26.0-34.0); MCHC 31.6 g/dL (31.0-37.0); MCV 80.1 fL (80.0-100.0); MEAN PLATELET VOLUME 11.1 fL (7.4-10.4); MONOCYTES 6.3 % (2-11); NEUTROPHILS 84.8 % (40-80); PLATELET COUNT 265 10x3/uL (130-400); RBC 4.93 10x6/uL (4.20-6.10); RDW 17.6 % (11.5-14.5); WBC 17.3 10x3/uL (4.8-10.8)
[2019-01-20 05:29] LABS: ALBUMIN 2.6 g/dL (3.4-5.0); ANION GAP 13.3 mmol/L (8-16); BILIRUBIN - TOTAL 0.71 mg/dL (0.2-1.3); CALCIUM 9.3 mg/dL (8.5-10.1); CARBON DIOXIDE 23.8 mmol/L (21.0-32.0); CREATININE - SERUM 1.7 mg/dL (0.6-1.3); POTASSIUM - SERUM 5.1 mmol/L (3.5-5.1); PROTEIN - SERUM 5.7 g/dL (6.4-8.2)
[2019-01-20 08:51] VITALS: BP 150/90
[2019-01-20 12:21] VITALS: BP 144/77
[2019-01-20 16:57] VITALS: BP 114/69
--- NOTE | 2019-01-20 19:54 | NUR ---
INITIAL ROUNDS AND ASSESSMENT COMPLETED. PT RESTING IN BED. NO DISTRESS. MONITOR AND CPOC.
[2019-01-20 20:15] VITALS: BP 145/83
[2019-01-21] VITALS: BP 140/71
[2019-01-21 05:22] LABS: BASOPHILS 0 % (0-2); EOSINOPHILS 0.1 % (0-7); HEMATOCRIT 36.7 % (42.0-54.0); IMMATURE GRANULOCYTES 0.6 % (0-5); LYMPHOCYTES 8.3 % (15-50); MCH 25.7 pg (26.0-34.0); MCHC 32.7 g/dL (31.0-37.0); MCV 78.6 fL (80.0-100.0); MEAN PLATELET VOLUME 11.2 fL (7.4-10.4); MONOCYTES 5.9 % (2-11); NEUTROPHILS 85.1 % (40-80); PLATELET COUNT 252 10x3/uL (130-400); RBC 4.67 10x6/uL (4.20-6.10); RDW 17.7 % (11.5-14.5); WBC 16.4 10x3/uL (4.8-10.8)
[2019-01-21 06:24] LABS: ALBUMIN 2.5 g/dL (3.4-5.0); ANION GAP 13.3 mmol/L (8-16); BILIRUBIN - TOTAL 0.57 mg/dL (0.2-1.3); CALCIUM 9.2 mg/dL (8.5-10.1); CARBON DIOXIDE 23.5 mmol/L (21.0-32.0); CREATININE - SERUM 1.7 mg/dL (0.6-1.3); POTASSIUM - SERUM 4.8 mmol/L (3.5-5.1); PROTEIN - SERUM 5.5 g/dL (6.4-8.2)
[2019-01-21 07:53] VITALS: BP 154/91
[2019-01-21 12:20] VITALS: BP 131/70
[2019-01-21 17:05] VITALS: BP 127/86
--- NOTE | 2019-01-21 19:16 | NUR ---
RESUMING PATIENT CARE. PATIENT IS ALERT AND ORIENTED, RESTING COMFORTABLY IN BED. PATIENT CONTINUES ON 2L NC. RESPIRATIONS ARE EVEN AND UNLABORED. DENIES NEEDS AT THIS TIME. NO S/S OF DISTRESS. NO C/O PAIN. CALL LIGHT WITHIN REACH. WILL CPOC.
[2019-01-21 20:00] VITALS: BP 135/77
[2019-01-22] VITALS: BP 115/62
[2019-01-22 04:00] VITALS: BP 113/68
[2019-01-22 06:59] LABS: HEMATOCRIT 36.8 % (42.0-54.0); HEMOGLOBIN 11.7 g/dL (13.5-17.5); MCH 25.1 pg (26.0-34.0); MCHC 31.8 g/dL (31.0-37.0); MEAN PLATELET VOLUME 11.4 fL (7.4-10.4); PLATELET COUNT 211 10x3/uL (130-400); RBC 4.66 10x6/uL (4.20-6.10)
[2019-01-22 07:00] LABS: WBC 12.1 10x3/uL (4.8-10.8)
[2019-01-22 07:07] LABS: ALBUMIN 2.4 g/dL (3.4-5.0); BILIRUBIN - TOTAL 0.59 mg/dL (0.2-1.3); CALCIUM 9.3 mg/dL (8.5-10.1); CARBON DIOXIDE 22.8 mmol/L (21.0-32.0); CREATININE - SERUM 1.9 mg/dL (0.6-1.3); POTASSIUM - SERUM 4.8 mmol/L (3.5-5.1); PROTEIN - SERUM 5.4 g/dL (6.4-8.2)
[2019-01-22 07:57] VITALS: BP 110/60
[2019-01-22 08:08] LABS: BASOPHILS 1 % (0-2); EOSINOPHILS 2 % (0-7); LYMPHOCYTES 16 % (15-50); MONOCYTES 6 % (2-11); NEUTROPHILS 73 % (40-80); PLATELET ESTIMATE NORMAL
[2019-01-22 08:09] LABS: SMUDGE CELLS OCC
--- NOTE | 2019-01-22 11:07 | MORECARE ---
CASE MANAGEMENT DISCHARGE SUMMARY PATIENT: ANASTASIIA FONTENOT UNIT: [id number] ADM DATE: 01/09/19 AGE: 78 : 39 SEX: M ROOM/BED: D.2117 AUTHOR: ANDREA,DOC PHYSICIAN: REFERRING PHYSICIAN: ROBERT HERRERA MD DATE OF SERVICE: 01/22/19 Discharge Plan Patient Name: ANASTASIIA FONTENOT Facility: [facility]:[place] : 1940 Planned Disposition: Home with Home Health Anticipated Discharge Date: 01/15/19 Discharge Date: Expected LOS: 6 Initial Reviewer: [email or web address] Initial Review Date: 01/11/2019 Generated: 01/22/19 12:06 pm Comments DCP- Discharge Planning Updated by [email or web address]: Pb Spencer on 01/22/19 10:[address] Patient Name: ANASTASIIA FONTENOT Encounter No: [id number] : 1940 Primary Insurance: MEDICARE A & B Anticipated DC Date: 01-15-2019 Planned Disposition: Home with Home Health External Planned Provider: [facility] Discharge Planning Comments: CM MET WITH PT IN ROOM TO DISCUSS DISCHARGE PLANNING AND NEEDS.. PT DENIES DISCHARGE NEEDS,OTHER THAN HOME HEALTH RESUMPTION. PT REPORTS HIS WILL PICK HIM UP FOR DISCHARGE HOME. IMPORTANT MESSAGE FROM MEDICARE PROVIDED AND EXPLAINED. CM NOTIFIED NADIYA OF [facility] OF POSSIBLE DISCHARGE HOME TODAY FOR RESUMPTION OF HOME HEALTH CARE. CM FAXED HOSPITAL UPDATE TO [facility] AT [phone]. PT PLANS TO DISCHARGE HOME WITH . FOR DISCHARGE NOTIFY [facility] FOR RESUMPTION, , FAX DISCHARGE INFORMATION TO [facility] AT [phone]. CM TO CONTINUE TO FOLLOW AND ASSIST NEEDED. Assistant Activities Director: Pb Spencer DCP- Discharge Planning Updated by [id number]: Pb Spencer on 01/14/19 2:[address] Patient Name: ANASTASIIA FONTENOT Admission Status: ER Accout number: [id number] Admission Date: 01-09-2019 : 1940 Admission Diagnosis:HEART FAILURE, UNSPECIFIED Attending: ROBERT HERRERA Current LOS: 5 Anticipated DC Date: 01-15-2019 Planned Disposition: Home with Home Health Primary Insurance: MEDICARE A & B PLANNED EXTERNAL PROVIDER: [facility] Discharge Planning Comments: CM MET WITH PT IN ROOM TO DISCUSS DISCHARGE PLANNING AND NEEDS. PT REPORTS LIVING AT HOME INDEPENDENTLY WITH HIS . PT HAS WALKER AND WHEELCHAIR THAT HE DOES NOT USE; PT HAS NEBULIZER AND HOME / PORTABLE OXYGEN FROM [facility]. PT HAS HOME HEALTH WITH [facility]. CM DISCUSSED AVAILABILITY OF HOME HEALTH, REHAB SERVICES AND MEDICAL EQUIPMENT. PT DENIES DISCHARGE NEEDS,OTHER THAN HOME HEALTH RESUMPTION. PT REPORTS HIS WILL PICK HIM UP FOR DISCHARGE HOME. IMPORTANT MESSAGE FROM MEDICARE PROVIDED AND EXPLAINED. CHOICE FOR [facility] SIGNED. CM CALLED [facility], , SPOKE TO ISRRAEL WHO VERIFIED PT IS ACTIVE WITH [facility] AND THEY CAN RESUME SERVICES WHEN PT DISCHARGES HOME. CM FAXED HOSPITAL UPDATE TO [facility] AT [phone]. PT PLANS TO DISCHARGE HOME WITH . FOR DISCHARGE NOTIFY [facility] FOR RESUMPTION, , FAX DISCHARGE INFORMATION TO CARE AT [phone]. CM TO CONTINUE TO FOLLOW AND ASSIST NEEDED. Assistant Activities Director: Pb Spencer DCP- Discharge Planning Updated by [id number]: Hayley Gomez on 01/11/19 2:[address] Sleeping, not disturbed at this time. Will meet at a later time. CM will continue to follow and assist with discharge planning/needs. DCPIA - Discharge Planning Initial Assessment Updated by [id number]: Pb Spencer on 01/14/19 3:05 pm * Is the patient Alert and Oriented? Yes * How many steps to enter\exit or inside your home? 2 W / RAMP * PCP DR. LEE * Pharmacy [facility] * Preadmission Environment Home with Family * ADLs Independent * Equipment Nebulizer Oxygen Walker Wheelchair * Other Equipment HOME AND PORTABLE OXYGEN [facility] - MEDICAL EQUIPMENT PROVIDER PREFERENCE * List name and contact numbers for known caregivers / representatives who currently or will assist patient after discharge: EDA FONTENOT, [place], [place] [phone] * Verbal permission to speak to the caregivers and representatives has been obtained from the patient. N/A * Community resources currently utilized Home Health * Please name any agencies selected above. [facility], NURSING * Additional services required to return to the preadmission environment? No * Can the patient safely return to the preadmission environment? Yes * Has this patient been hospitalized within the prior 30 days at any hospital? No Coverage Notice Reviewer: NATALIA Spencer Notice Issued Date-Time: 01/14/2019 13:30 Notice Type: IM Discharge Notice Notice Delivered To: Patient Relationship to Patient: Food Service Order Clerk Name: Delivery Method: HAND - Hand Delivered Ghada Days: Prior Verbal Notification: Recipient Understood Notice: Yes Recipient Signature: Yes Med Rec Note Co-signed by Attending: Coverage Notice Comment: Reviewer: NATALIA Spencer Notice Issued Date-Time: 01/14/2019 13:30 Notice Type: Patient Choice Letter Notice Delivered To: Patient Relationship to Patient: Food Service Order Clerk Name: Delivery Method: HAND - Hand Delivered Ghada Days: Prior Verbal Notification: Recipient Understood Notice: Yes Recipient Signature: Yes Med Rec Note Co-signed by Attending: Coverage Notice Comment: [facility] Reviewer: NATALIA Spencer Notice Issued Date-Time: 01/22/2019 10:50 Notice Type: IM Discharge Notice Notice Delivered To: Patient Relationship to Patient: Food Service Order Clerk Name: Delivery Method: HAND - Hand Delivered Ghada Days: Prior Verbal Notification: Recipient Understood Notice: Yes Recipient Signature: Yes Med Rec Note Co-signed by Attending: Coverage Notice Comment: Last DP export: 01/14/19 3:09 p Patient Name: ANASTASIIA FONTENOT Page [phone] at 1107 All edits/amendments must be made on the electronic document DICTATION DATE: 01/22/191105 DOWEL PIN WORKER: RAHAT 01/22/19 1106 RPT#: [id number] DC DATE: STATUS: ADM IN [facility] [address] [place] [address] END OF REPORT
[2019-01-22 11:18] VITALS: BP 130/71
[2019-01-22] MEDS ORDERED: ALDACTONE25 MG PO (11:37)
[2019-01-22] MEDS ORDERED: PLAVIX75 MG PO (11:37)
[2019-01-22] MEDS ORDERED: LASIX40 MG PO (11:38)
[2019-01-22] MEDS ORDERED: PROTONIX40 MG PO (11:39)
[2019-01-22] MEDS ORDERED: PREDNISONE20 MG PO (11:39)
[2019-01-22] MEDS ORDERED: MIRALAX17 GM PO (11:39)
--- NOTE | 2019-01-22 14:39 | NUR ---
IV AND TELEMETRY DCD. DC PLANS GIVEN. UNDERSTANDING VOICED. ESCORTED TO CAR BY W/C.
--- NOTE | 2019-01-23 08:16 | MORECARE ---
CASE MANAGEMENT DISCHARGE SUMMARY PATIENT: ANASTASIIA FONTENOT UNIT: [id number] ADM DATE: 01/09/19 AGE: 78 : 39 SEX: M ROOM/BED: D.2117 AUTHOR: ANDREA,DOC PHYSICIAN: REFERRING PHYSICIAN: ROBERT HERRERA MD DATE OF SERVICE: 01/23/19 Discharge Plan Patient Name: ANASTASIIA FONTENOT Facility: [facility]:[place] : 1940 Planned Disposition: Home with Home Health Anticipated Discharge Date: 01/22/19 Discharge Date: 01/22/2019 Expected LOS: 13 Initial Reviewer: [email or web address] Initial Review Date: 01/11/2019 Generated: 01/23/19 9:16 am Comments DCP- Discharge Planning Updated by [id number]: Pb Spencer on 01/22/19 10:[address] Patient Name: ANASTASIIA FONTENOT Encounter No: [id number] : 1940 Primary Insurance: MEDICARE A & B Anticipated DC Date: 01-15-2019 Planned Disposition: Home with Home Health External Planned Provider: [facility] Discharge Planning Comments: CM MET WITH PT IN ROOM TO DISCUSS DISCHARGE PLANNING AND NEEDS.. PT DENIES DISCHARGE NEEDS,OTHER THAN HOME HEALTH RESUMPTION. PT REPORTS HIS WILL PICK HIM UP FOR DISCHARGE HOME. IMPORTANT MESSAGE FROM MEDICARE PROVIDED AND EXPLAINED. CM NOTIFIED NADIYA OF [facility] OF POSSIBLE DISCHARGE HOME TODAY FOR RESUMPTION OF HOME HEALTH CARE. CM FAXED HOSPITAL UPDATE TO [facility] AT [phone]. PT PLANS TO DISCHARGE HOME WITH . FOR DISCHARGE NOTIFY [facility] FOR RESUMPTION, , FAX DISCHARGE INFORMATION TO [facility] AT [phone]. CM TO CONTINUE TO FOLLOW AND ASSIST NEEDED. Career Services Director: Pb Spencer DCP- Discharge Planning Updated by [id number]: Pb Spencer on 01/14/19 2:[address] Patient Name: ANASTASIIA FONTENOT Admission Status: ER Accout number: [id number] Admission Date: 01-09-2019 : 1940 Admission Diagnosis:HEART FAILURE, UNSPECIFIED Attending: ROBERT HERRERA Current LOS: 5 Anticipated DC Date: 01-15-2019 Planned Disposition: Home with Home Health Primary Insurance: MEDICARE A & B PLANNED EXTERNAL PROVIDER: [facility] Discharge Planning Comments: CM MET WITH PT IN ROOM TO DISCUSS DISCHARGE PLANNING AND NEEDS. PT REPORTS LIVING AT HOME INDEPENDENTLY WITH HIS . PT HAS WALKER AND WHEELCHAIR THAT HE DOES NOT USE; PT HAS NEBULIZER AND HOME / PORTABLE OXYGEN FROM [facility]. PT HAS HOME HEALTH WITH [facility]. CM DISCUSSED AVAILABILITY OF HOME HEALTH, REHAB SERVICES AND MEDICAL EQUIPMENT. PT DENIES DISCHARGE NEEDS,OTHER THAN HOME HEALTH RESUMPTION. PT REPORTS HIS WILL PICK HIM UP FOR DISCHARGE HOME. IMPORTANT MESSAGE FROM MEDICARE PROVIDED AND EXPLAINED. CHOICE FOR [facility] SIGNED. CM CALLED [facility], , SPOKE TO ISRRAEL WHO VERIFIED PT IS ACTIVE WITH [facility] AND THEY CAN RESUME SERVICES WHEN PT DISCHARGES HOME. CM FAXED HOSPITAL UPDATE TO [facility] AT [phone]. PT PLANS TO DISCHARGE HOME WITH . FOR DISCHARGE NOTIFY [facility] FOR RESUMPTION, , FAX DISCHARGE INFORMATION TO CARE AT [phone]. CM TO CONTINUE TO FOLLOW AND ASSIST NEEDED. Career Services Director: Pb Spencer DCP- Discharge Planning Updated by [id number]: Hayley Gomez on 01/11/19 2:[address] Sleeping, not disturbed at this time. Will meet at a later time. CM will continue to follow and assist with discharge planning/needs. DCPIA - Discharge Planning Initial Assessment Updated by [id number]: Pb Spencer on 01/14/19 3:05 pm * Is the patient Alert and Oriented? Yes * How many steps to enter\exit or inside your home? 2 W / RAMP * PCP DR. LEE * Pharmacy [facility] * Preadmission Environment Home with Family * ADLs Independent * Equipment Nebulizer Oxygen Walker Wheelchair * Other Equipment HOME AND PORTABLE OXYGEN [facility] - MEDICAL EQUIPMENT PROVIDER PREFERENCE * List name and contact numbers for known caregivers / representatives who currently or will assist patient after discharge: EDA FONTENOT, [place], [place] [phone] * Verbal permission to speak to the caregivers and representatives has been obtained from the patient. N/A * Community resources currently utilized Home Health * Please name any agencies selected above. [facility] * Additional services required to return to the preadmission environment? No * Can the patient safely return to the preadmission environment? Yes * Has this patient been hospitalized within the prior 30 days at any hospital? No Coverage Notice Reviewer: NATALIA Spencer Notice Issued Date-Time: 01/14/2019 13:30 Notice Type: IM Discharge Notice Notice Delivered To: Patient Relationship to Patient: Pens And Pencils Dipper Name: Delivery Method: HAND - Hand Delivered Ghada Days: Prior Verbal Notification: Recipient Understood Notice: Yes Recipient Signature: Yes Med Rec Note Co-signed by Attending: Coverage Notice Comment: Reviewer: NATALIA Spencer Notice Issued Date-Time: 01/14/2019 13:30 Notice Type: Patient Choice Letter Notice Delivered To: Patient Relationship to Patient: Pens And Pencils Dipper Name: Delivery Method: HAND - Hand Delivered Ghada Days: Prior Verbal Notification: Recipient Understood Notice: Yes Recipient Signature: Yes Med Rec Note Co-signed by Attending: Coverage Notice Comment: [facility] Reviewer: NATALIA Spencer Notice Issued Date-Time: 01/22/2019 10:50 Notice Type: IM Discharge Notice Notice Delivered To: Patient Relationship to Patient: Pens And Pencils Dipper Name: Delivery Method: HAND - Hand Delivered Ghada Days: Prior Verbal Notification: Recipient Understood Notice: Yes Recipient Signature: Yes Med Rec Note Co-signed by Attending: Coverage Notice Comment: Last DP export: 01/22/19 10:06 am Patient Name: ANASTASIIA FONTENOT Page 90417 at 0816 All edits/amendments must be made on the electronic document DICTATION DATE: 01/23/19814 SIZE MIXER: RAHAT 01/23/19814 RPT#: [id number] DC DATE:01/22/19 STATUS: DIS IN [facility] [address] [place] [address] END OF REPORT
== END 2019-01-22 14:44 | disposition home health service (06) | DRG 246 ==
LOC: D.ER 22:36 → D.M2 01-09 01:14 → D.MS 01-09 01:14 → D.M2 01-11 17:12 → D.SDCHOLD 01-21 14:51 → D.M2 01-21 14:55
PROVIDERS: Family Medicine; Internal Medicine Interventional Cardiology; Internal Medicine Pulmonary Disease; ADMIT Internal Medicine Nephrology; ATTEND Internal Medicine Nephrology
PROC: 4A023N7 Measurement of Cardiac Sampling and Pressure, Left Heart, Percutaneous Approach (ICD-10-PCS; 2019-01-16)
PROC: 027135Z Dilation of Coronary Artery, Two Arteries with Two Drug-eluting Intraluminal Devices, Percutaneous Approach (ICD-10-PCS; principal; 2019-01-16 12:00)
PROC: 4A023N6 Measurement of Cardiac Sampling and Pressure, Right Heart, Percutaneous Approach (ICD-10-PCS; 2019-01-18)
PROC: B2141ZZ Fluoroscopy of Right Heart using Low Osmolar Contrast (ICD-10-PCS; 2019-01-18)
PROC: 3E083KZ Introduction of Other Diagnostic Substance into Heart, Percutaneous Approach (ICD-10-PCS; 2019-01-18)
PROC: 027034Z Dilation of Coronary Artery, One Artery with Drug-eluting Intraluminal Device, Percutaneous Approach (ICD-10-PCS; 2019-01-18 14:30)
DX: I13.0 Hypertensive heart and chronic kidney disease with heart failure and stage 1 through stage 4 chronic kidney disease, or unspecified chronic kidney disease (principal); I50.23 Acute on chronic systolic (congestive) heart failure; J96.21 Acute and chronic respiratory failure with hypoxia; J18.9 Pneumonia, unspecified organism; N18.4 Chronic kidney disease, stage 4 (severe); D68.9 Coagulation defect, unspecified; B37.0 Candidal stomatitis; E11.22 Type 2 diabetes mellitus with diabetic chronic kidney disease; J44.9 Chronic obstructive pulmonary disease, unspecified; I08.3 Combined rheumatic disorders of mitral, aortic and tricuspid valves; I27.20 Pulmonary hypertension, unspecified; I25.110 Atherosclerotic heart disease of native coronary artery with unstable angina pectoris; I42.9 Cardiomyopathy, unspecified; J43.9 Emphysema, unspecified; I48.91 Unspecified atrial fibrillation; D50.9 Iron deficiency anemia, unspecified

== ENCOUNTER → 2019-02-12 16:49 | Outpatient (CLI) | payer MEDICARE, BC ==
[2019-01-11 09:05] VITALS: BMI 26.4
[~2019-02-12 16:49] MED LIST changes: +ALDACTONE25 MG PO; +ATROVENT HFA12.9 GM INH; +IPRAT-ALBUT 0.5-3 ML UPD; +LANTUS SOL100 UNIT/1 SC; +MIRALAX17 GM PO; +PRAVACHOL40 MG PO; +PREDNISONE20 MG PO
[2019-02-12 16:55] LABS: BASOPHILS 0.2 % (0-2); EOSINOPHILS 2.2 % (0-7); HEMATOCRIT 37.6 % (42.0-54.0); HEMOGLOBIN 12.1 g/dL (13.5-17.5); IMMATURE GRANULOCYTES 2.2 % (0-5); LYMPHOCYTES 16.1 % (15-50); MCH 26.1 pg (26.0-34.0); MCHC 32.2 g/dL (31.0-37.0); MCV 81.2 fL (80.0-100.0); MEAN PLATELET VOLUME 9.5 fL (7.4-10.4); MONOCYTES 7.4 % (2-11); NEUTROPHILS 71.9 % (40-80); RBC 4.63 10x6/uL (4.20-6.10); RDW 18.4 % (11.5-14.5); WBC 8.3 10x3/uL (4.8-10.8)
[2019-02-12 16:56] LABS: PLATELET COUNT 285 10x3/uL (130-400)
[2019-02-12 17:05] LABS: ANION GAP 14.4 mmol/L (8-16); BILIRUBIN - TOTAL 0.28 mg/dL (0.2-1.3); CREATININE - SERUM 1.9 mg/dL (0.6-1.3); POTASSIUM - SERUM 4.4 mmol/L (3.5-5.1); PROTEIN - SERUM 6.1 g/dL (6.4-8.2)
== END | disposition home or self-care (01) ==
LOC: D.LABREF 16:49
PROVIDERS: ATTEND Internal Medicine Interventional Cardiology
DX: I25.10 Atherosclerotic heart disease of native coronary artery without angina pectoris (principal); I10 Essential (primary) hypertension

== ENCOUNTER → 2019-02-19 16:14 | Outpatient (CLI) | payer MEDICARE, BC ==
[2019-01-11 09:05] VITALS: BMI 26.4
[2019-02-19 16:21] LABS: BASOPHILS 0.3 % (0-2); EOSINOPHILS 0.7 % (0-7); HEMATOCRIT 38.5 % (42.0-54.0); HEMOGLOBIN 12.3 g/dL (13.5-17.5); LYMPHOCYTES 24.8 % (15-50); MCH 26.4 pg (26.0-34.0); MCHC 31.9 g/dL (31.0-37.0); MCV 82.6 fL (80.0-100.0); MEAN PLATELET VOLUME 9.8 fL (7.4-10.4); NEUTROPHILS 64.2 % (40-80); PLATELET COUNT 240 10x3/uL (130-400); RBC 4.66 10x6/uL (4.20-6.10); RDW 18.9 % (11.5-14.5); WBC 7.7 10x3/uL (4.8-10.8)
[2019-02-19 16:29] LABS: ANION GAP 15.3 mmol/L (8-16); CARBON DIOXIDE 25.5 mmol/L (21.0-32.0); CREATININE - SERUM 1.8 mg/dL (0.6-1.3); POTASSIUM - SERUM 4.8 mmol/L (3.5-5.1)
== END | disposition home or self-care (01) ==
LOC: D.LABREF 16:14
PROVIDERS: ATTEND Nurse Practitioner
DX: I50.9 Heart failure, unspecified (principal)

== ENCOUNTER → 2019-04-15 12:29 | Outpatient (CLI) | payer MEDICARE, BC ==
[2019-01-11 09:05] VITALS: BMI 26.4
== END | disposition home or self-care (01) ==
LOC: D.RT 12:29
PROVIDERS: ATTEND Internal Medicine Pulmonary Disease
DX: J45.909 Unspecified asthma, uncomplicated (principal); J84.9 Interstitial pulmonary disease, unspecified

== ENCOUNTER 2019-05-28 11:17 | Inpatient (IN) | payer MEDICARE, BC ==
[~2019-05-28] VITALS: Ht 193 cm; Wt 99.3 kg
[2019-05-28 11:56] LABS: BASOPHILS 0.1 % (0-2); EOSINOPHILS 1.5 % (0-7); HEMATOCRIT 36.1 % (42.0-54.0); HEMOGLOBIN 11.4 g/dL (13.5-17.5); IMMATURE GRANULOCYTES 0.2 % (0-5); LYMPHOCYTES 17.6 % (15-50); MCH 27.9 pg (26.0-34.0); MCHC 31.6 g/dL (31.0-37.0); MCV 88.5 fL (80.0-100.0); MEAN PLATELET VOLUME 10.4 fL (7.4-10.4); MONOCYTES 7.6 % (2-11); PLATELET COUNT 260 10x3/uL (130-400); RBC 4.08 10x6/uL (4.20-6.10); WBC 8.4 10x3/uL (4.8-10.8)
[2019-05-28 11:59] LABS: CALC OSMOLALITY 295 mosm/kg (275-300); CALCIUM 9.1 mg/dL (8.5-10.1); CARBON DIOXIDE 25.4 mmol/L (21.0-32.0); CHLORIDE - SERUM 103 mmol/L (98-107); POTASSIUM - SERUM 3.7 mmol/L (3.5-5.1); SODIUM 139 mmol/L (136-145); UREA NITROGEN 35 mg/dL (7-18); eGFR NON AFRICAN AMERICAN 34 mL/min (90-120)
[2019-05-28 12:01] LABS: APTT 33.6 SECONDS (22.8-39.4); INR 1.17 (0.85-1.17); PROTIME 14.4 SECONDS (11.6-15.0)
[2019-05-28 12:02] LABS: GLUCOSE 276 mg/dL (74-106)
[2019-05-28 12:17] LABS: ALBUMIN 3.1 g/dL (3.4-5.0); ALKALINE PHOSPHATASE 39 U/L (46-116); ALT (SGPT) 12 U/L (10-68); BILIRUBIN - TOTAL 0.67 mg/dL (0.2-1.3); CKMB 0.7 U/L (0.0-3.6); CREATINE KINASE 34 UL (21-232); PRO BNP 25389 pg/mL (0-450); PROTEIN - SERUM 6.6 g/dL (6.4-8.2); TROPONIN-I < 0.017 ng/mL (0.000-0.060)
[2019-05-28] MEDS ORDERED: FUROSEMIDE20 MG PO (12:41)
--- NOTE | 2019-05-28 14:00 | NUR ---
BLOOD SUGAR 178
[2019-05-28 17:32] VITALS: BP 154/84; BMI 26.7
--- NOTE | 2019-05-28 18:02 | NUR ---
AWAKE AND ALERT. ORIENTED X3. LUNGS ARE DIMINISHED WITH FAINT CRACKLES IN LOWER LOBES. NO COUGH NOTED BUT PATIENT REPORTED OCCASSIONAL NON PRODUCTIVE COUGH ESPECIALLY IN AM. SKIN IS INTACT WITHOUT REDNESS EXCEPT SMALL SKIN TEAR TO LEFT FOREARM WHICH IS CLEAN DRY AND WELL APPROXIMATED. DENIES NEEDS.
[2019-05-28 20:00] VITALS: BP 155/74
--- NOTE | 2019-05-29 01:38 | NUR ---
1930)REC'D IN BED EYES CLOSED RESP DEEP AND EVEN WILL CONTINUE TO MONITOR FOR ANY CHGES AND FOLLOW CURRENT PLAN OF CARE.
[2019-05-29 04:00] VITALS: BP 130/77
[2019-05-29 05:58] LABS: ANION GAP 16.9 mmol/L (8-16); CALCIUM 9.2 mg/dL (8.5-10.1); CARBON DIOXIDE 20.8 mmol/L (21.0-32.0); MAGNESIUM - SERUM 2.2 mg/dL (1.8-2.4); PHOSPHOROUS 3.1 mg/dL (2.5-4.9); POTASSIUM - SERUM 3.7 mmol/L (3.5-5.1)
--- NOTE | 2019-05-29 06:00 | NUR ---
I have reviewed this patient and I concur with the Shift Assessment completed by the Licensed Practical Nurse today this shift.
[2019-05-29 07:24] LABS: HEMATOCRIT 39.8 % (42.0-54.0); LYMPHOCYTES 13.5 % (15-50); MCH 29.1 pg (26.0-34.0); MCHC 32.7 g/dL (31.0-37.0); MCV 89.2 fL (80.0-100.0); MEAN PLATELET VOLUME 11.2 fL (7.4-10.4); NEUTROPHILS 81.5 % (40-80); PLATELET COUNT 247 10x3/uL (130-400); RBC 4.46 10x6/uL (4.20-6.10); RDW 14.3 % (11.5-14.5); WBC 9.4 10x3/uL (4.8-10.8)
--- NOTE | 2019-05-29 08:03 | NUR ---
I have reviewed this patient and I concur with the Shift Assessment completed by the Licensed Practical Nurse today this shift.
[2019-05-29 08:06] VITALS: BP 129/74
--- NOTE | 2019-05-29 08:06 | NUR ---
AWAKE AND ALERT. ORIENTED X3. NO C/O AT THIS TIME. LUNGS ARE DIMINISHED THROUGHOUT WITH FAINT CRACKLES IN LOWER LOBES. NO COUGH NOTED. SKIN IS INTACT WITHOUT REDNESS EXCEPT SMALL SKIN TEAR TO LEFT FOREARM. SL TO LEFT FOREARM IS PATENT WTIHOUT REDNESS AT INSERTION SITE. SITTING UP ON SIDE OF BED EATING BREAKFAST. DENIES NEEDS.
[2019-05-29 09:44] VITALS: BMI 26.6
--- NOTE | 2019-05-29 10:00 | NUR ---
REFUSED BATH THIS AM. ATE MOST OF BREAKFAST. DENIES NEEDS.
--- NOTE | 2019-05-29 12:19 | MORECARE ---
CASE MANAGEMENT DISCHARGE SUMMARY PATIENT: ANASTASIIA NIETO UNIT: [id number] ADM DATE: 05/28/19 AGE: 78 : 39 SEX: M ROOM/BED: D.2203 AUTHOR: ANDREA,DOC PHYSICIAN: REFERRING PHYSICIAN: ROBERT HERRERA MD DATE OF SERVICE: 05/29/19 Discharge Plan Patient Name: ANASTASIIA NIETO Facility: [facility]:[place] : 1940 Planned Disposition: Home Anticipated Discharge Date: 05/31/19 Discharge Date: Expected LOS: 3 Initial Reviewer: [email or web address] Initial Review Date: 05/28/2019 Generated: 05/29/19 1:18 pm Comments DCP- Discharge Planning Updated by [email or web address]: Davina Montgomery on 05/29/19 11:[address] DC PLAN: Return home with and resumption of [facility]. ANTICIPATED DC NEEDS: Resumption [facility]. CM met with patient to complete initial dc planning assessment. CM educated patient on the CM role and verbal consent given by patient to complete assessment. CM verified patient's address, phone number, and emergency contact phone numbers. Patient lives at home with his . Patient currently has [facility] and wishes to resume at discharge. [facility] form signed by patient for resumption of Home Health. Signed form placed in chart and signed form given to patient. At discharge patient plans to return home and feels this is a safe discharge. Patient denied further known discharge needs at this time. . Patient reports his will transport him home at time of discharge.CM will continue to follow and will assist as needed with dc plans/needs. Davina Montgomery RN, [facility] DCPIA - Discharge Planning Initial Assessment Updated by [id number]: Davina Montgomery on 05/29/19 12:16 pm * Is the patient Alert and Oriented? Yes * How many steps to enter\exit or inside your home? None * PCP Dr. Ernandez * Pharmacy [facility] [address] * Preadmission Environment Home with Family * ADLs Independent * Equipment Glucometer Nebulizer Oxygen Rolling Walker Wheelchair * Other Equipment BP machine * List name and contact numbers for known caregivers / representatives who currently or will assist patient after discharge: Yue Niteo - [facility] - [phone] * Verbal permission to speak to the caregivers and representatives has been obtained from the patient. Yes * Community resources currently utilized Home Health * Please name any agencies selected above. [facility] - [facility] singed for resumption. * Additional services required to return to the preadmission environment? No * Can the patient safely return to the preadmission environment? Yes * Has this patient been hospitalized within the prior 30 days at any hospital? No Patient Name: ANASTASIIA NIETO Page 07530 at 1219 All edits/amendments must be made on the electronic document DICTATION DATE: 05/29/191217 NEIGHBORHOOD WORKER: RAHAT 05/29/19 1218 RPT#: [id number] NM DATE: STATUS: ADM IN [facility] [address] [place] [address] END OF REPORT
[2019-05-29 12:25] VITALS: BP 148/75
[2019-05-29 13:09] LABS: APPEARANCE CLEAR (CLEAR); BILIRUBIN NEGATIVE (NEGATIVE); COLOR YELLOW (YELLOW); GLUCOSE 50 mg/dL (NEGATIVE); KETONE NEGATIVE (NEGATIVE); NITRITE NEGATIVE (NEGATIVE); PROTEIN 2+ mg/dL (NEGATIVE); UROBILINOGEN NORMAL (NORMAL)
[2019-05-29 16:34] VITALS: Ht 193 cm; Wt 99.3 kg
--- NOTE | 2019-05-29 18:10 | NUR ---
OFF UNIT VIA WC FOR TEST.
--- NOTE | 2019-05-29 18:38 | NUR ---
ATE ALL OF SUPPER. DENIES NEEDS. NO CHANGES NOTED.
--- NOTE | 2019-05-29 19:25 | NUR ---
SITTING UP ON BEDSIDE, ABLE TO VOICE ALL NEEDS. VERBALIZES HIS TRIGGER FINGER IS HURTING AND WOULD LIKE PAIN MEDICATION. VERONICA NOTIFIED WITH NEW ORDERS RCVD. WILL NOTE ANY CHANGE.
[2019-05-30] VITALS: BP 133/77
--- NOTE | 2019-05-30 02:17 | NUR ---
I have reviewed this patient and I concur with the Shift Assessment completed by the Licensed Practical Nurse today this shift.
[2019-05-30 04:00] VITALS: BP 134/77
--- NOTE | 2019-05-30 05:16 | NUR ---
DURING HS POX WENT TO 89% UNABLE TO TITRATE O2 TO KEEP ABOVE SPECIFIED LEVEL, PLACED ON BIPAP WITH 100% SATURATION. RESTED WELL, SHOWED NO S/S OF ANY ACUTE DISTRESS. WILL NOTE CHANGE.
[2019-05-30 06:36] LABS: ANION GAP 14.3 mmol/L (8-16); CALCIUM 8.9 mg/dL (8.5-10.1); CARBON DIOXIDE 24.5 mmol/L (21.0-32.0); CREATININE - SERUM 2.2 mg/dL (0.6-1.3); MAGNESIUM - SERUM 2.1 mg/dL (1.8-2.4); POTASSIUM - SERUM 3.8 mmol/L (3.5-5.1)
[2019-05-30 06:40] LABS: PHOSPHOROUS 4.7 mg/dL (2.5-4.9)
[2019-05-30 06:58] LABS: BASOPHILS 0.3 % (0-2); EOSINOPHILS 4.5 % (0-7); HEMATOCRIT 36.7 % (42.0-54.0); HEMOGLOBIN 11.5 g/dL (13.5-17.5); IMMATURE GRANULOCYTES 0.3 % (0-5); LYMPHOCYTES 19.6 % (15-50); MCH 27.3 pg (26.0-34.0); MCHC 31.3 g/dL (31.0-37.0); MEAN PLATELET VOLUME 10.4 fL (7.4-10.4); MONOCYTES 5.8 % (2-11); NEUTROPHILS 69.5 % (40-80); PLATELET COUNT 261 10x3/uL (130-400); RBC 4.21 10x6/uL (4.20-6.10)
[2019-05-30 07:00] LABS: MCV 87.2 fL (80.0-100.0)
--- NOTE | 2019-05-30 09:00 | NUR ---
PATIENT CO OF PAIN ON RIGHT SIDE OF CHEST AND BOTH HANDS. SAYS IT FEELS LIKE A CRAMP LIKE A MUSCLE PAIN. SAYS IT COULD BE THE TELEMETRY STICKER THAT IS MAKING HIS CHEST HURT. CL IN REACH. WCTM
[2019-05-30 09:23] VITALS: BP 148/90
--- NOTE | 2019-05-30 12:49 | CN ---
PATIENT NAME:ANASTASIIA NIETO MEDICAL RECORD: [id number] : [birth year] LOCATION:D.MS [id number] ADMIT DATE: 05/28/19 ACCOUNT: [id number] CONSULTING PHYSICIAN: LEWIS ANNE MD REFERRING PHYSICIAN: ROBERT HERRERA MD DATE OF CONSULTATION: 05/29/2019 DIAGNOSES: 1. Shortness of breath, dyspnea on exertion. 2. Aspiration pneumonia. 3. Congestive heart failure, chronic systolic dysfunction. 4. Cardiomyopathy. 5. Valvular heart disease, aortic insufficiency, mitral regurgitation. 6. Pulmonary hypertension. 7. Paroxysmal atrial fibrillation. 8. Amiodarone toxicity. 9. COPD. 10. Coronary artery disease. 11. Insulin-dependent diabetes. HISTORY OF PRESENT ILLNESS: Mr. Nieto is well known to us with past history of coronary artery disease, past history of cardiomyopathy, chronic systolic dysfunction, congestive heart failure, who presents with shortness of breath, dyspnea on exertion. It is multifactorial from his COPD, aspiration pneumonia, and congestive heart failure. He was previously on amiodarone. This has been on hold and he has been given steroids. His pulmonary fibrosis or ground-glass appearance on chest x-ray is improving from this. He is as well on diuretics. His pulmonary edema is improving. He had an echocardiogram revealed no change in his ejection fraction. Unfortunately, it is in the 20% range. He is having no anginal chest pain or chest discomfort. No significant dysrhythmias off the amiodarone. PHYSICAL EXAMINATION: CONSTITUTIONAL/GENERAL APPEARANCE: Well nourished, well developed, appears stated age. EYES: Lids and conjunctivae noninjected. No discharge. No pallor. ENT: Lips within normal limit. No cyanosis. No pallor. NECK: Carotid arteries, bilateral normal upstroke. No bruits. No thrills. No jugular venous pressure or distention. CERVICAL LYMPH NODES: Nontender. Nonenlarged. THYROID: Not enlarged. No nodules. CARDIOVASCULAR: Precordial exam, nondisplaced. No heaves or pericardial thrills. Rate and rhythm, regular. Heart sounds, normal S1, normal S2. No S3, no gallop, no rub. Systolic murmur, not heard. Diastolic murmur, not heard. RESPIRATORY: Respiratory effort, unlabored. Normal curvature. No thoracic deformity. No chest wall tenderness. Percussion, resonant. Auscultation, clear. No wheezes, no rales, no rhonchi. ABDOMEN: Soft, nondistended, nontender. No abdominal pain, no vomiting and normal appetite. MUSCULOSKELETAL: No joint tenderness, normal gait, normal tone. SKIN: Warm and dry. OVERALL IMPRESSION: 1. Congestive heart failure, chronic systolic dysfunction that is responding to diuretics at this time. Unfortunately, his ejection fraction is unchanged in CONSULT REPORT [id number] ANASTASIIA NIETO the 20% range. Because his symptomatology is clearing, I do not think he needs inotropic therapy at this time. 2. Dysrhythmia, off the amiodarone. Obviously, we will not restart the amiodarone secondary to the pulmonary toxicity. He is stable from a cardiac rhythm standpoint, off the amiodarone. 3. Valvular heart disease. He remains on afterload reduction and treatment of the systemic hypertension. The limits of degree of valvular regurgitation in his systolic blood pressure is in the 120 range, hence no other workup or treatment is necessary from this standpoint. Continue diuresis and current medical management. TRANSINT:[id number] Voice Confirmation ID: [id number] DOCUMENT ID: [id number] LEWIS ANNE MD at 1249 CC: [id number] DICTATION DATE: 05/29/19 1637 AFTERNOON BABYSITTER: 05/29/19 2317 ADM IN [place] [id number] [place] [address]
--- NOTE | 2019-05-30 12:49 | EC ---
PATIENT:ANASTASIIA FONTENOT DATE OF SERVICE: 05/28/19 SEX: M MEDICAL RECORD: [id number] DATE OF : [birth year] LOCATION:D.MS [place] AGE OF PATIENT: 78 ADMISSION DATE: 05/28/19 REFERRING PHYSICIAN: INTERPRETING PHYSICIAN: LEWIS RYAN MD ECHOCARDIOGRAM REPORT ECHO CHARGES 4 ECHO COMPLETE Date: 05/29/19 CLINICAL DIAGNOSIS: CHF/SOB ECHOCARDIOGRAPHIC MEASUREMENTS (adult normal given) AC root (d.<3.7cm) 4.2 cm LV Septum d (<1.2 cm> 1.3 cm Valve Excursion 1.8 cm LV Septum (systole) 1.9 cm Left Atria (s.<4.0cm> 5.1 cm LVPW d(<1.2cm) 1.4 cm RV (d.<2.3cm) 3.3 cm LVPW (sytole) 2.0 cm LV diastole(<5.6CM) 6.7 cm MV E-F(>70mm/sec) cm LV systole 5.0 cm LVOT Diameter 2.2 cm MV exc.(>10mm) cm Est.ejection fraction (50-75%) % DOPPLER: LVIT cm/sec A 48.0 cm/sec E 111 cm/sec LA cm/sec RVSP 70.0 mmHg LVOT 64.0 cm/sec AOP1/2T 537.0m/s Asc. Ao 214 cm/sec RVOT 53.0 cm/sec RA cm/sec PA 84.0 cm/sec AV Gradient Peak 18.3 mmHg AV Mean 8.7 mmHg AV Area 1.2 cm MV Gradient Peak 7.2 mmHg MV Mean 2.7 mmHg MV Area cm COMMENTS: Acoustical Material Worker: Ronnie BEEOE Physiotherapy Aide: 1 Dr. Ryan TAPE# PACS Pericardial Effusion N DATE OF SERVICE: 05/29/2019 FINDINGS: 1. Left ventricular chamber size is dilated. Left ventricular systolic function is markedly reduced at 25%. 2. Left atrium is enlarged at 5.1 cm. Right atrium and right ventricular chamber sizes are as well moderately dilated. 3. Valvular structures: Aortic valve demonstrates mild calcific aortic stenosis, valve area calculates 1.2 cm-squared, has a gradient of 18 mm across the valve. The remaining valvular structures have normal structure and motion. ECHOCARDIOGRAM REPORT [id number] ANASTASIIA FONTENOT 4. Doppler interrogation elsewise reveals iqfpfoxh-ut-eaajia mitral regurgitation, ztgkbcrq-ij-[id number] tricuspid regurgitation, no other valvular insufficiency or stenosis. Pulmonary systolic pressure is markedly elevated estimated at 70 mmHg. 5. No evidence of pericardial effusion or left ventricular thrombus. TRANSINT:[id number] Voice Confirmation ID: [id number] DOCUMENT ID: [id number] LEWIS RYAN MD at 1249 CC: [id number] DICTATION DATE: 05/29/19 1515 SEWING MACHINE OPERATOR SEMIAUTOMATIC: 05/29/19 2207 ADM IN [facility] [address] [place] [id number]
[2019-05-30 13:08] VITALS: BP 129/82
[2019-05-30 17:42] VITALS: BP 142/91
--- NOTE | 2019-05-30 19:24 | NUR ---
IN BED WITH TELEVISION ON. O2 AT 6L VIA NC ON. ABLE TO VOICE ALL NEEDS. DENIES ANY PAIN AT THIS TIME. WILL NOTE ANY CHANGE.
[2019-05-30 20:00] VITALS: BP 143/81
--- NOTE | 2019-05-31 02:50 | NUR ---
I have reviewed this patient and I concur with the Shift Assessment completed by the Licensed Practical Nurse today this shift.
[2019-05-31 06:34] LABS: BASOPHILS 0.3 % (0-2); EOSINOPHILS 6.1 % (0-7); HEMATOCRIT 36.9 % (42.0-54.0); HEMOGLOBIN 11.5 g/dL (13.5-17.5); IMMATURE GRANULOCYTES 0.2 % (0-5); LYMPHOCYTES 21.9 % (15-50); MCH 27.3 pg (26.0-34.0); MCHC 31.2 g/dL (31.0-37.0); MCV 87.6 fL (80.0-100.0); MEAN PLATELET VOLUME 10.7 fL (7.4-10.4); MONOCYTES 7.1 % (2-11); NEUTROPHILS 64.4 % (40-80); PLATELET COUNT 264 10x3/uL (130-400); RBC 4.21 10x6/uL (4.20-6.10); RDW 14.1 % (11.5-14.5); WBC 6.4 10x3/uL (4.8-10.8)
[2019-05-31 06:40] LABS: ANION GAP 13.2 mmol/L (8-16); CALCIUM 8.9 mg/dL (8.5-10.1); CARBON DIOXIDE 24.1 mmol/L (21.0-32.0); CREATININE - SERUM 2.2 mg/dL (0.6-1.3); MAGNESIUM - SERUM 2.1 mg/dL (1.8-2.4); PHOSPHOROUS 4.8 mg/dL (2.5-4.9); POTASSIUM - SERUM 3.3 mmol/L (3.5-5.1)
[2019-05-31 08:34] VITALS: BP 146/76
--- NOTE | 2019-05-31 09:25 | NUR ---
Nutrition follow-up: Diet: Consistent CHO PO Intake 100% of most meals Labs reviewed Wt: 219# +BM PO intake good at this time RDN following.
--- NOTE | 2019-05-31 11:01 | NUR ---
PATIENT SITTING UP ON SIDE OF BED. CL IN REACH. NO NEEDS AT THIS TIME. WCTM
[2019-05-31 12:42] VITALS: BP 122/66
[2019-05-31 16:26] VITALS: BP 134/80
--- NOTE | 2019-05-31 17:47 | NUR ---
SITTING ON SIDE OF BED EATING DINNER. NO NEEDS AT THIS TIME. CL IN REACH. WCTM
--- NOTE | 2019-05-31 20:00 | NUR ---
ALERT SITTING UP ON SIDE OF BED DENIES PAIN OR NEEDS, O2 IN CONTINOUS USE, SEE SHIFT ASSESSMENT, CALL LIGHT IN REACH
[2019-05-31 21:02] VITALS: BP 124/67
[2019-06-01 01:20] VITALS: BP 131/69
[2019-06-01 05:52] VITALS: BP 126/68
[2019-06-01 06:27] LABS: BASOPHILS 0.3 % (0-2); EOSINOPHILS 3.9 % (0-7); HEMATOCRIT 35.9 % (42.0-54.0); HEMOGLOBIN 11.3 g/dL (13.5-17.5); IMMATURE GRANULOCYTES 0.3 % (0-5); LYMPHOCYTES 16.2 % (15-50); MCH 27.6 pg (26.0-34.0); MCHC 31.5 g/dL (31.0-37.0); MCV 87.6 fL (80.0-100.0); MEAN PLATELET VOLUME 10.6 fL (7.4-10.4); MONOCYTES 6.2 % (2-11); NEUTROPHILS 73.1 % (40-80); PLATELET COUNT 249 10x3/uL (130-400); RDW 14.1 % (11.5-14.5); WBC 7.4 10x3/uL (4.8-10.8)
[2019-06-01 06:44] LABS: ANION GAP 16.8 mmol/L (8-16); CARBON DIOXIDE 21.9 mmol/L (21.0-32.0); CREATININE - SERUM 1.9 mg/dL (0.6-1.3); MAGNESIUM - SERUM 2.1 mg/dL (1.8-2.4); PHOSPHOROUS 4.2 mg/dL (2.5-4.9); POTASSIUM - SERUM 3.7 mmol/L (3.5-5.1)
[2019-06-01 08:51] VITALS: BP 154/87
--- NOTE | 2019-06-01 09:27 | NUR ---
PT ALERT X 4. BREATH SOUNDS CLEAR BILAT, 6L O2 PER NC, REPORTING SOB. TELEMETRY IN PLACE. IV TO LEFT WRIST, SALINE LOCKED. PT REPORTING PAIN OF 6/10, MEDICATED PER ORDERS, WILL MONITOR. BED LOW, CALL LIGHT IN REACH. NO OTHER NEEDS AT THIS TIME.
--- NOTE | 2019-06-01 10:17 | MORECARE ---
CASE MANAGEMENT DISCHARGE SUMMARY PATIENT: ANASTASIIA NIETO UNIT: [id number] ADM DATE: 05/28/19 AGE: 78 : 39 SEX: M ROOM/BED: D.2203 AUTHOR: ANDREADOC PHYSICIAN: REFERRING PHYSICIAN: ROBERT HERRERA MD DATE OF SERVICE: 06/01/19 Discharge Plan Patient Name: ANASTASIIA NIETO Facility: [facility]:[place] : 1940 Planned Disposition: Home Anticipated Discharge Date: 05/31/19 Discharge Date: Expected LOS: 3 Initial Reviewer: [email or web address] Initial Review Date: 05/28/2019 Generated: 06/01/19 11:17 am Comments DCP- Discharge Planning Updated by [email or web address]: Romy Youngblood on 06/01/19 9:[address] Patient Name: ANASTASIIA NIETO Admission Status: Elective Accout number: [id number] Admission Date: 05-28-2019 : 1940 Admission Diagnosis: Attending: ROBERT HERRERA Current LOS: 4 Anticipated DC Date: 05-31-2019 Planned Disposition: Home Primary Insurance: MEDICARE A & B Discharge Planning Comments: PATIENT HAS 02 AT HOME AND PORTABLE. PLANS TO DC TO HOME TODAY AND WILL PEST CONTROL CHEMICAL TECHNICIAN. [facility] AND IMM SIGNED. CM WILL FAX [facility] SUM [facility]. Paper Cap Machine Operator: Romy Youngblood DCP- Discharge Planning Updated by [email or web address]: Davina Montgomery on 05/29/19 11:[address] DC PLAN: Return home with and [facility] of [facility]. ANTICIPATED DC NEEDS: [facility]. CM met with patient to complete initial dc planning assessment. CM educated patient on the CM role and verbal consent given by patient to complete assessment. CM verified patient's address, phone number, and emergency contact phone numbers. Patient lives at home with his . [facility] currently has [facility] and wishes to resume at discharge. [facility] form signed by patient for resumption of Home Health. Signed form placed in chart and signed form given to patient. At discharge patient plans to return home and feels this is a safe discharge. Patient denied further known discharge needs at this time. . Patient reports his will transport him home at time of discharge.CM will continue to follow and will assist as needed with dc plans/needs. Davina Montgomery RN, CCM DCPIA - Discharge Planning Initial Assessment Updated by [email or web address]: Davina Montgomery on 05/29/19 12:16 pm * Is the patient Alert and Oriented? Yes * How many steps to enter\exit or inside your home? None * PCP Dr. Ernandez * Pharmacy [facility] [address] * Preadmission Environment Home with Family * ADLs Independent * Equipment Glucometer Nebulizer Oxygen Rolling Walker Wheelchair * Other Equipment BP machine * List name and contact numbers for known caregivers / representatives who currently or will assist patient after discharge: Yue Nieto - spouse - [phone] * Verbal permission to speak to the caregivers and representatives has been obtained from the patient. Yes * Community resources currently utilized Home Health * Please name any agencies selected above. [facility] - [facility] singed for resumption. * Additional services required to return to the preadmission environment? No * Can the patient safely return to the preadmission environment? Yes * Has this patient been hospitalized within the prior 30 days at any hospital? No Last DP export: 05/29/19 11:19 a Patient Name: ANASTASIIA NIETO Page [id number] at 1017 All edits/amendments must be made on the electronic document DICTATION DATE: 06/01/19 1017 DIRECTOR OF CONSTRUCTION: RAHAT 06/01/19 1017 RPT#: [id number] DC DATE: STATUS: ADM IN [facility] [address] [place] [address] END OF REPORT
--- NOTE | 2019-06-01 10:25 | MORECARE ---
CASE MANAGEMENT DISCHARGE SUMMARY PATIENT: ANASTASIIA NIETO UNIT: [id number] ADM DATE: 05/28/19 AGE: 78 : 39 SEX: M ROOM/BED: D.2203 AUTHOR: ANDREADOC PHYSICIAN: REFERRING PHYSICIAN: ROBERT HERRERA MD DATE OF SERVICE: 06/01/19 Discharge Plan Patient Name: ANASTASIIA NIETO Facility: [facility]:[place] : 1940 Planned Disposition: Home Anticipated Discharge Date: 05/31/19 Discharge Date: Expected LOS: 3 Initial Reviewer: [email or web address] Initial Review Date: 05/28/2019 Generated: 06/01/19 11:24 am Comments DCP- Discharge Planning Updated by [email or web address]: Romy Youngblood on 06/01/19 9:[address] Patient Name: ANASTASIIA NIETO Admission Status: Elective Accout number: [id number] Admission Date: 05-28-2019 : 1940 Admission Diagnosis: Attending: ROBERT HERRERA Current LOS: 4 Anticipated DC Date: 05-31-2019 Planned Disposition: Home Primary Insurance: MEDICARE A & B Discharge Planning Comments: PATIENT HAS 02 AT HOME AND PORTABLE. PLANS TO DC TO HOME TODAY AND WILL EMISSIONS TESTING TECHNICIAN. STATES [facility] AND IMM SIGNED. CM WILL [facility]X [facility] SUM [facility]. Education Supervisor: Romy Youngblood DCP- Discharge Planning Updated by [email or web address]: Davina Montgomery on 05/29/19 11:[address] DC PLAN: Return home with and [facility]. ANTICIPATED DC NEEDS: [facility]. CM met with patient to complete initial dc planning assessment. CM educated patient on the CM role and verbal consent given by patient to complete assessment. CM verified patient's address, phone number, and emergency contact phone numbers. Patient lives at home with his . [facility] has [facility] and wishes to resume at discharge. [facility] form signed by patient for resumption of Home Health. Signed form placed in chart and signed form given to patient. At discharge patient plans to return home and feels this is a safe discharge. Patient denied further known discharge needs at this time. . Patient reports his will transport him home at time of discharge.CM will continue to follow and will assist as needed with dc plans/needs. Davina Montgomery RN, [facility] DCPIA - Discharge Planning Initial Assessment Updated by [email or web address]: Davina Montgomery on 05/29/19 12:16 pm * Is the patient Alert and Oriented? Yes * How many steps to enter\exit or inside your home? None * PCP Dr. Ernandez * Pharmacy [facility] [address] * Preadmission Environment Home with Family * ADLs Independent * Equipment Glucometer Nebulizer Oxygen Rolling Walker Wheelchair * Other Equipment BP machine * List name and contact numbers for known caregivers / representatives who currently or will assist patient after discharge: Yue Nieto - spouse - [phone] * Verbal permission to speak to the caregivers and representatives has been obtained from the patient. Yes * Community resources currently utilized Home Health * Please name any agencies selected above. [facility] - [facility] singed for resumption. * Additional services required to return to the preadmission environment? No * Can the patient safely return to the preadmission environment? Yes * Has this patient been hospitalized within the prior 30 days at any hospital? No Coverage Notice Reviewer: [id number] Jesika Youngblood Notice Issued Date-Time: 06/01/2019 10:17 Notice Type: IM Discharge Notice Notice Delivered To: Patient Relationship to Patient: Military Education Coordinator Name: Delivery Method: HAND - Hand Delivered Ghada Days: Prior Verbal Notification: Recipient Understood Notice: Yes Recipient Signature: Yes Med Rec Note Co-signed by Attending: Coverage Notice Comment: Last DP export: 06/01/19 9:17 a Patient Name: ANASTASIIA NIETO Page [id number] at 1025 All edits/amendments must be made on the electronic document DICTATION DATE: 06/01/19 1024 DRAPERY ESTIMATOR: RAHAT 06/01/19 1024 RPT#: [id number] DC DATE: STATUS: ADM IN [facility] [address] [place] [address] END OF REPORT
[2019-06-01] MEDS ORDERED: MUCINEX DM ER1 EAC1 PO (10:32)
--- NOTE | 2019-06-01 14:32 | NUR ---
DISCHARGE PAPERWORK SIGNED, ALL QUESTIONS ANSWERED. IV TO LEFT WRIST DC'D, TIP INTACT. ESCORTED OUT VIA WHEELCHAIR WITH PORTABLE O2. WAITING AT FRONT, VERIFIED SHE HAD PORTABLE O2 AVAILABLE.
--- NOTE | 2019-06-01 15:50 | MORECARE ---
CASE MANAGEMENT DISCHARGE SUMMARY PATIENT: ANASTASIIA NIETO UNIT: [id number] ADM DATE: 05/28/19 AGE: 78 : 39 SEX: M ROOM/BED: D.2203 AUTHOR: EMANI MENDEZ PHYSICIAN: REFERRING PHYSICIAN: ROBERT HERRERA MD DATE OF SERVICE: 06/01/19 Discharge Plan Patient Name: ANASTASIIA NIETO Facility: [facility]:[place] : 1940 Planned Disposition: Home Anticipated Discharge Date: 05/31/19 Discharge Date: 06/01/2019 Expected LOS: 3 Initial Reviewer: [email or web address] Initial Review Date: 05/28/2019 Generated: 06/01/19 4:49 pm Comments DCP- Discharge Planning Updated by [email or web address]: Romy Youngblood on 06/01/19 9:[address] Patient Name: ANASTASIIA NIETO Admission Status: Elective Accout number: [id number] Admission Date: 05-28-2019 : 1940 Admission Diagnosis: Attending: ROBERT HERRERA Current LOS: 4 Anticipated DC Date: 05-31-2019 Planned Disposition: Home Primary Insurance: MEDICARE A & B Discharge Planning Comments: PATIENT HAS 02 AT HOME AND PORTABLE. PLANS TO DC TO HOME TODAY AND WILL JUMP ROLL OPERATOR. STATES [facility] AND IMM SIGNED. CM WILL FAX [facility] SUM [facility]. Band Aid Machine Operator: Romy Youngblood DCP- Discharge Planning Updated by [email or web address]: Davina Montgomery on 05/29/19 11:[address] DC PLAN: Return home with and [facility]. ANTICIPATED DC NEEDS: [facility]. CM met with patient to complete initial dc planning assessment. CM educated patient on the CM role and verbal consent given by patient to complete assessment. CM verified patient's address, phone number, and emergency contact phone numbers. Patient lives at home with his . [facility] currently has [facility] and wishes to resume at discharge. [facility] form signed by patient for resumption of Home Health. Signed form placed in chart and signed form given to patient. At discharge patient plans to return home and feels this is a safe discharge. Patient denied further known discharge needs at this time. . Patient reports his will transport him home at time of discharge.CM will continue to follow and will assist as needed with dc plans/needs. Davina Montgomery RN, CCM DCPIA - Discharge Planning Initial Assessment Updated by [email or web address]: Davina Montgomery on 05/29/19 12:16 pm * Is the patient Alert and Oriented? Yes * How many steps to enter\exit or inside your home? None * PCP Dr. rEnandez * Pharmacy [facility] [address] * Preadmission Environment Home with Family * ADLs Independent * Equipment Glucometer Nebulizer Oxygen Rolling Walker Wheelchair * Other Equipment BP machine * List name and contact numbers for known caregivers / representatives who currently or will assist patient after discharge: Yue Nieto - spouse - [phone] * Verbal permission to speak to the caregivers and representatives has been obtained from the patient. Yes * Community resources currently utilized Home Health * Please name any agencies selected above. [facility] - [facility] singed for resumption. * Additional services required to return to the preadmission environment? No * Can the patient safely return to the preadmission environment? Yes * Has this patient been hospitalized within the prior 30 days at any hospital? No Coverage Notice Reviewer: [email or web address] Jesika Youngblood Notice Issued Date-Time: 06/01/2019 10:17 Notice Type: IM Discharge Notice Notice Delivered To: Patient Relationship to Patient: Cutter Grinder Operator Name: Delivery Method: HAND - Hand Delivered Ghada Days: Prior Verbal Notification: Recipient Understood Notice: Yes Recipient Signature: Yes Med Rec Note Co-signed by Attending: Coverage Notice Comment: Last DP export: 06/01/19 9:25 a Patient Name: ANASTASIIA NIETO Page [id number] at 1550 All edits/amendments must be made on the electronic document DICTATION DATE: 06/01/19 1549 JUVENILE OFFICER: RAHAT 06/01/19 1549 RPT#: [id number] DC DATE:06/01/19 STATUS: DIS IN [facility] [address] [place] [address] END OF REPORT
== END 2019-06-01 14:46 | disposition home health service (06) | DRG 291 ==
LOC: D.ER 11:17 → D.MS 14:30
PROVIDERS: Emergency Medicine; ADMIT Internal Medicine Nephrology; ATTEND Internal Medicine Nephrology
DX: I13.0 Hypertensive heart and chronic kidney disease with heart failure and stage 1 through stage 4 chronic kidney disease, or unspecified chronic kidney disease (principal); I50.23 Acute on chronic systolic (congestive) heart failure; J96.21 Acute and chronic respiratory failure with hypoxia; N17.9 Acute kidney failure, unspecified; I25.10 Atherosclerotic heart disease of native coronary artery without angina pectoris; E11.22 Type 2 diabetes mellitus with diabetic chronic kidney disease; E11.65 Type 2 diabetes mellitus with hyperglycemia; N18.9 Chronic kidney disease, unspecified; J44.9 Chronic obstructive pulmonary disease, unspecified; D64.9 Anemia, unspecified; M19.90 Unspecified osteoarthritis, unspecified site; M54.9 Dorsalgia, unspecified; F32.9 Major depressive disorder, single episode, unspecified; N40.0 Benign prostatic hyperplasia without lower urinary tract symptoms; Z95.0 Presence of cardiac pacemaker; I42.9 Cardiomyopathy, unspecified; I35.1 Nonrheumatic aortic (valve) insufficiency; I34.0 Nonrheumatic mitral (valve) insufficiency; I27.20 Pulmonary hypertension, unspecified; I48.0 Paroxysmal atrial fibrillation; T46.2X1A Poisoning by other antidysrhythmic drugs, accidental (unintentional), initial encounter; I27.22 Pulmonary hypertension due to left heart disease